=== PATIENT | male | born 1935 | race Caucasian/White ===

== ENCOUNTER 2018-03-02 15:29 | Inpatient (IN) | payer MEDICAID, OTHER ==
[~2018-03-02] VITALS: Ht 177.8 cm; Wt 134.5 kg
[~2018-03-02 15:29] MED LIST: ACET325T21 PO; ACET325T9 PO; ALBU2.5V5 IH; AMIO200T4 PO; ASPI-482 PO; ASPI-630 PO; ATOR40TA PO; ATOR40TA59 PO; BETA15CR5 TP; CARV12.52 PO; CARV25TA PO; CICL6.1H2 IH; CLOP75TA PO; CLOP75TA57 PO; CYAN10005 PO; DIGO250T PO; DILT240C32 PO; DILT360C PO; DOCU-109 PO; FOLI1TAB16 PO; FURO-68 PO; GLIP5TAB10 PO; GLYB5TAB3 PO; HYDR25SU4 RC; IBUP-1007 PO; INSU100V5 IJ; LEVO150T5 PO; LISI10TA2 PO; LISI2.5T PO; METF10003 PO; NITR0.4T SL; POTA10TA12 PO; TAMS0.4C97 PO; VENTOLIN HFA18 GM IH
--- NOTE | 2018-03-02 17:29 | PDOC1 ---
History and Physical Date of Admission Date of Admission DATE: 03/02/18 TIME: 17:23 Identification/Chief Complaint Chief Complaint Cannot urinate Source Source: Caregiver, Chart review, Patient History of Present Illness History of Present Illness 82-year-old male, incarcerated, comes in because of inability to urinate. [facility]irm[facility] at the facility tried to put a Flores catheter to no avail. He has bilateral enlarged scrotum, not tight though but seems to be fluid filled , no pain hence no signs of incarceratio, he claims this has been going on maybe for 2 weeks. He has history of BPH on Flomax, prostate is still there, admitted because of significant scrotal swelling, bilateral lower extremity swelling, some oozing of fluid in the left LE - he he has under wraps. Urology expertise to help place a Flores catheter. ER did attempt to insert one to no avail. Otherwise patient is nontoxic. The rest of the labs are still pending, labs has not been drawn, will order PSA, check ultrasound of the scrotum and bilateral lower extremity and admitted. Home meds I have reconciled, he has an indwelling pacemaker, some cardiac meds including Plavix etc. Which I have continued. AGreeable to be admitted Past Medical History Cardiovascular: AFIB, CAD, HTN, DE, Hyperlipidemia Pulmonary: COPD GI: No pertinent hx Heme/Onc: Anemia NOS Hepatobiliary: No pertinent hx Psych: No pertinent hx Musculoskeletal: low back pain Rheumatologic: No pertinent hx Infectious disease: No pertinent hx Renal/: Chronic renal insuff Endocrine: Diabetes Past Surgical History Past Surgical History: Pacemaker Family History Family History: Hypertension Social History Smoke: No ALCOHOL: none Drugs: None Current Medications Current Medications Current Medications Ondansetron HCl (Zofran) 4 mg PRN Q8HRS PRN IV NAUSEA/VOMITING; Start 03/02/18 at 17:30; Stop 03/03/18 at 17:29; Status UNV Morphine Sulfate (Morphine Sulfate) 4 mg PRN Q2HR PRN IV PAIN; Start 03/02/18 at 17:30; Stop 03/03/18 at 17:29; Status UNV Acetaminophen (Tylenol) 650 mg PRN Q4HRS PRN PO FEVER; Start 03/02/18 at 17:30 ; Stop 03/03/18 at 17:29; Status UNV Furosemide (Lasix) 60 mg 1X ONCE IVP ; Start 03/02/18 at 17:30; Stop 03/02/18 at 17:31; Status UNV Acetaminophen (Tylenol) 325 mg PRN Q4HRS PO ; Start 03/02/18 at 17:30; Status UNV Albuterol Sulfate (Ventolin Neb Soln) 2.5 mg TID PRN CONT NEB ; Start 03/02/18 at 17:30; Status UNV Amiodarone HCl (Cordarone) 200 mg BID PO ; Start 03/02/18 at 21:00; Status UNV Aspirin (Ecotrin) 81 mg DAILY PO ; Start 03/03/18 at 09:00; Status UNV Atorvastatin Calcium (Lipitor) 40 mg DAILY PO ; Start 03/03/18 at 09:00; Status UNV Carvedilol (Coreg) 12.5 mg BIDWMEALS PO ; Start 03/03/18 at 08:00; Status UNV Clopidogrel Bisulfate (Plavix) 75 mg DAILY PO ; Start 03/03/18 at 09:00; Status UNV Cyanocobalamin (Vitamin B-12) 1,000 mcg DAILY PO ; Start 03/03/18 at 09:00; Status UNV Diltiazem HCl (Cardizem 24hr Cd) 240 mg DAILYWLUN PO ; Start 03/03/18 at 12:00; Status UNV Docusate Sodium (Colace) 100 mg DAILY PO ; Start 03/03/18 at 09:00; Status UNV Folic Acid (Folic Acid) 1 mg DAILY PO ; Start 03/03/18 at 09:00; Status UNV Active Scripts Active Carvedilol 12.5 Mg Tablet 12.5 Mg PO BIDWMEALS Diltiazem 24HR Cd (Diltiazem Hcl) 240 Mg Cap.er.24h 240 Mg PO DAILYWLUN Amiodarone Hcl 200 Mg Tablet 200 Mg PO BID Vitamin B-12 (Cyanocobalamin (Vitamin B-12)) 1,000 Mcg Tablet 1,000 Mcg PO DAILY Reported Levothyroxine Sodium 150 Mcg Tablet 1 Tab PO DAILY Glipizide 5 Mg Tablet 2.5 Mg PO DAILY Tylenol (Acetaminophen) 325 Mg Tablet 1 Tab PO PRN Q4HRS Flomax (Tamsulosin Hcl) 0.4 Mg Cap.er.24h 1 Cap PO DAILY Potassium Chloride 10 Meq Capsule.er 10 Meq PO DAILY Lasix (Furosemide) 40 Mg Tablet 1 Tab PO DAILY Folic Acid 1 Mg Tablet 1 Tab PO DAILY Colace (Docusate Sodium) 100 Mg Capsule 1 Cap PO DAILY Clopidogrel (Clopidogrel Bisulfate) 75 Mg Tablet 1 Tab PO DAILY Betamethasone Dipropionate 15 Gm Cream..g. 1 Ayad TP BID Atorvastatin Calcium 40 Mg Tablet 1 Tab PO DAILY Aspir 81 (Aspirin) 81 Mg Tablet.dr 1 Tab PO DAILY Alvesco (Ciclesonide) 6.1 Gm Hfa.aer.ad 6.1 Gm IH Ventolin Hfa Inhaler (Albuterol Sulfate) 18 Gm Hfa.aer.ad 18 Gm IH Albuterol Sulfate Neb Soln (Albuterol Sulfate) 2.5 Mg/3 Ml Vial.neb 2.5 Mg IH TID PRN Metformin Hcl 1,000 Mg Tablet 1,000 Mg PO BID Allergies Allergies: Coded Allergies: No Known Drug Allergies (Unverified , 08/11/13) ROS Review of System As per history of present illness, the rest of ROS 14 point negative Physical Exam General: Alert, Oriented X3, Cooperative, No acute distress HEENT: Atraumatic, PERRLA, EOMI Lungs: Normal air movement, Other (dec Breath sounds especially bases, no wheezing, poor effort) Heart: no gallops, no murmurs Cardiovascular: S1, S2 Abdomen: Normal bowel sounds, Soft, No tenderness, No hepatosplenomegaly, No masses, Other (obese abdomen, seemingly fluid filled but not distended) Male Genitals Exam: other (Bilateral scrotal swelling, but not tight, visible vessels,) Rectal Exam: not examined Extremities: Other (signif plus 3 pitting edema with oozing, some Volodymyr wraps around) Skin: No rashes, No breakdown, No significant lesion Psych/Mental Status: Mental status NL, Mood NL Vitals Vitals Vital Signs Date Time Temp Pulse Resp B/P (MAP) Pulse Ox O2 Delivery O2 Flow Rate FiO2 03/02/18 16:17 97.8 69 16 165/95 (118) 95 Room Air 97.8 VTE Prophylaxis Ordered VTE Prophylaxis Devices: Yes VTE Pharmacological Prophylaxi: Yes Assessment/Plan Assessment/Plan Difficulty urinating, difficulty placing a Flores History BPH on Flomax Bilateral scrotal enlargement, possibly hydroceles Bilateral lower extremity edema, some oozing HTN, afib , indwelling pacer - all chronic stable Plan: Admit, urology consult Lasix IV 1 after Flores catheter is placed Home meds reconciled Will need Lasix 40 IV daily once Flores's catheter is placed to help with diuresis Check lites since IV lasix Basic labs include a PSA PT OT OT for lymphedema Keep legs elevated Check an ultrasound of the scrotum and prostate and lower extremity rule out DVT Keep bilateral scrotum elevated to help with the swelling seen at ER Dw mid level RK BRIDGES MD Mar 02, 2018 17:29
[2018-03-02] MEDS: ALBUTEROL SULFATE 2.5 MG/3 ML NEBU. NEB SCH ×2 (17:30→20:07)
[2018-03-02] MEDS ORDERED: ONDANSETRON PF 4 MG/2 ML VIAL. IV PRN (17:30)
[2018-03-02] MEDS ORDERED: MORPHINE SULFATE 4 MG/ML VIAL. IV PRN (17:30)
[2018-03-02] MEDS ORDERED: FUROSEMIDE 40 MG/4 ML VIAL. IVP ONE (17:30)
[2018-03-02] MEDS ORDERED: ACETAMINOPHEN 325 MG TABLET. PO PRN ×2 (17:30)
[2018-03-02] MEDS ORDERED: DEXTROSE 50% 25 GM / 50ML DISP.SYRIN. IV PRN (17:30)
--- NOTE | 2018-03-02 17:32 | PHYS DOC ---
Past Medical History Past Medical History: Heart Disease, Hypertension Past Surgical History: Pacemaker Additional Past Surgical Histo: Hernia Repair Alcohol Use: None Drug Use: None Adult General Chief Complaint Chief Complaint: URINE CATHETER PROBLEM HPI HPI Patient is a 82 year old female with a history of heart disease, hypertension, who presents today for Baker placement. Patient is at the local correctional facility. He is slightly a poor historian. He states they tried to place a Baker but the doctor at the facility had no success. He states he was sent to the ED to have the Baker placed. He states he can void by himself but not much, he states his scrotum and lower extremities are very swollen and he is on Lasix , he states they need him to have the Baker to help him void more. He states he does not know if he has any history of BPH. He states is on palliative care and does not want much done for him at this point apart from getting the Baker. Patient is guarded by [employer] guards. Review of Systems Review of Systems Constitutional: Denies fever or chills [] Eyes: Denies change in visual acuity, redness, or eye pain [] HENT: Denies nasal congestion or sore throat [] Respiratory: Denies cough or shortness of breath [] Cardiovascular: No additional information not addressed in HPI [] GI: Denies abdominal pain, nausea, vomiting, bloody stools or diarrhea [] : Reports Scrotal edema. Need for baker. Denies dysuria or hematuria [] Musculoskeletal: Denies back pain or joint pain [] Integument: Denies rash or skin lesions [] Neurologic: Denies headache, focal weakness or sensory changes [] All other systems were reviewed and found to be within normal limits, except as documented in this note. Allergies Allergies Allergies Coded Allergies Type Severity Reaction Last Updated Verified No Known Drug Allergies 08/11/13 No Physical Exam Physical Exam Constitutional: Obese patient. Well developed, well nourished, no acute distress , non-toxic appearance. [] HENT: Normocephalic, atraumatic, bilateral external ears normal, oropharynx moist, no oral exudates, nose normal. [] Eyes: PERRLA, EOMI, conjunctiva normal, no discharge. [] Neck: Normal range of motion, no tenderness, supple, no stridor. [] Cardiovascular: Left upper chest with a pacemaker, paced rhythm. Lungs & Thorax: Bilateral breath sounds clear to auscultation [] Abdomen: Bowel sounds normal, soft, no tenderness, no masses, no pulsatile masses. [] Male exam-moderate scrotal swelling noted on exam. Penis barely visualized. It is lost in the swelling. No scrotal erythema. Skin: Warm, dry, no erythema, no rash. [] Back: No tenderness, no CVA tenderness. [] Extremities: No tenderness, no cyanosis, no clubbing, ROM intact, +3 edema to the LLE. Neurologic: Alert and oriented X 3, normal motor function, normal sensory function, no focal deficits noted. [] Psychologic: Affect normal, judgement normal, mood normal. [] Current Patient Data Vital Signs Vital Signs Date Time Temp Pulse Resp B/P (MAP) Pulse Ox O2 Delivery O2 Flow Rate FiO2 03/02/18 16:17 97.8 69 16 165/95 (118) 95 Room Air 97.8 EKG EKG [] Radiology/Procedures Radiology/Procedures [] Course & Med Decision Making Course & Med Decision Making Pertinent Labs and Imaging studies reviewed. (See chart for details) This is a 82-year-old male patient presenting to the ED today for Baker placement, patient is on palliative care and is currently an inmate. He needs the Baker catheter because is on Lasix and has quite a bit of scrotal edema. He can void on himself but he states it is small amounts. We attempted to place the Baker in the ED with no success. Patient has moderate scrotal edema. We have called the urology multiple times with no response. Spoke with Dr. Gill who accepted patient for admission, still trying to get a hold of urology. Jermaineon Disclaimer Jermaineon Disclaimer This electronic medical record was generated, in whole or in part, using a voice recognition dictation system. Departure Departure Impression: Primary Impression: Baker catheter problem Disposition: ADMITTED INPATIENT Condition: STABLE Referrals: NON,STAFF (PCP) Problem Qualifiers Primary Impression: Baker catheter problem Encounter type: initial encounter Qualified Codes: T83.9XXA - Unspecified complication of genitourinary prosthetic device, implant and graft, initial encounter ADILENE NOLASCO APRN Mar 02, 2018 17:32
[2018-03-02 18:04] VITALS: BP 125/78
[2018-03-02 19:00] VITALS: BP 141/98
[2018-03-02 19:37] LABS: BASO # 0.1 x10^3/uL (0.0-0.2); BASO % 1 % (0-3); EOS # 0.1 x10^3/uL (0.0-0.7); EOS % 1 % (0-3); HEMOGLOBIN 13.5 g/dL (13.0-17.5); LYMPH # 0.6 x10^3/uL (1.0-4.8); LYMPH % 8 % (24-48); MEAN CORPUSCULAR HEMOGLOBIN 29 pg (25-35); MEAN CORPUSCULAR HGB CONC 32 g/dL (31-37); MEAN CORPUSCULAR VOLUME 91 fL (79-100); MONO # 0.9 x10^3/uL (0.0-1.1); MONO % 11 % (0-9); NEUT # 6.7 x10^3uL (1.8-7.7); NEUT % 79 % (31-73); PLATELET COUNT 313 x10^3/uL (140-400); RED BLOOD COUNT 4.64 x10^6/uL (4.30-5.70); WHITE BLOOD COUNT 8.5 x10^3/uL (4.0-11.0)
--- NOTE | 2018-03-02 19:46 | RAD ---
Ultrasound testes and coronal contents HISTORY: Swelling and bruising Sonographic examination of the scrotal contents and testes was performed and multiple static images were obtained. In addition color Doppler was applied as well as waveform spectral analysis. Ultrasound scrotal contents and testes: The testes have normal echotexture. The right testis measures 4.1 x 3.7 x 3.6 centers. Left testis measures 3.8 x 3.2 x 3.2 centers. There are small hydroceles bilaterally. There is diffuse scrotal wall swelling. Color Doppler examination with spectral analysis: There is normal testicular flow bilaterally. IMPRESSION: 1. Marked diffuse scrotal swelling. Cellulitis or Willian's gangrene must be excluded clinically. 2. Normal testes. Electronically signed by: Omar Ferguson III, MD (03/02/2018 7:43 PM) [facility]
--- NOTE | 2018-03-02 19:46 | RAD ---
Ultrasound testes and coronal contents HISTORY: Swelling and bruising Sonographic examination of the scrotal contents and testes was performed and multiple static images were obtained. In addition color Doppler was applied as well as waveform spectral analysis. Ultrasound scrotal contents and testes: The testes have normal echotexture. The right testis measures 4.1 x 3.7 x 3.6 centers. Left testis measures 3.8 x 3.2 x 3.2 centers. There are small hydroceles bilaterally. There is diffuse scrotal wall swelling. Color Doppler examination with spectral analysis: There is normal testicular flow bilaterally. IMPRESSION: 1. Marked diffuse scrotal swelling. Cellulitis or Willian's gangrene must be excluded clinically. 2. Normal testes. Electronically signed by: Omar Ferguson III, MD (03/02/2018 7:43 PM) [facility]
[2018-03-02 19:52] LABS: CREATININE 1.7 mg/dL (0.7-1.3); GFR 38.6; PLT ESTIMATE ADEQUATE (ADEQUATE); POTASSIUM 4.5 mmol/L (3.5-5.1)
[2018-03-02 19:53] LABS: ANISOCYTOSIS MOD; POLYCHROMASIA SLIGHT; TARGET CELLS OCC
[2018-03-02 20:07] LABS: FREE T4 0.71 ng/dL (0.76-1.46); THYROID STIM HORMONE (TSH) 89.322 uIU/mL (0.358-3.74)
[2018-03-02] MEDS: CYANOCOBALAMIN (VITAMIN B-12) 1,000 MCG TABLET. PO SCH (20:25)
[2018-03-02] MEDS: FOLIC ACID 1 MG TABLET. PO SCH (20:25)
[2018-03-02] MEDS: CARVEDILOL 12.5 MG TABLET. PO SCH (20:28)
[2018-03-02] MEDS: POTASSIUM CHLORIDE 10 MEQ TABLET.ER. PO SCH (20:29)
[2018-03-02] MEDS: ASPIRIN ENTERIC COATED 81 MG TABLET.DR. PO SCH (20:29)
[2018-03-02] MEDS: DOCUSATE SODIUM 100 MG CAPSULE. PO SCH (20:29)
[2018-03-02] MEDS: CLOPIDOGREL BISULFATE 75 MG TABLET PO SCH (20:30)
[2018-03-02] MEDS: TAMSULOSIN 0.4 MG CAP.ER.24H. PO SCH (20:30)
[2018-03-02] MEDS: LEVOTHYROXINE 150 MCG TABLET PO SCH (20:30)
[2018-03-02] MEDS: ATORVASTATIN CALCIUM 40 MG TABLET. PO SCH (20:33)
[2018-03-02] MEDS: AMIODARONE HCL 200 MG TABLET. PO SCH (20:34)
[2018-03-02] MEDS ORDERED: FLUOCINONIDE 0.05% TOPICAL CREAM 15 GM TUBE. TP PRN (21:00)
--- NOTE | 2018-03-02 21:21 | PDOC2 ---
UROLOGY CONSULT Date of Admission DATE: 03/02/18 TIME: 21:12 Reason for Consult: aur scrotal swelling hydrocele Chief Complaint scrotal swelling luts Source: Chart review, Patient 2 weeks of worsening LUTS and scrotal/bl LE swelling. No gh, no dysuria, no skin scrotal trauma. Unable to place cath in long-term nor ED. No prior evaluation for BPH/LUTS. PVR 400ml in ED. ROS ROS: RESPIRATORY: Shortness of breath denies. Cough denies. UROLOGY: Denies blood in urine. Denies difficulty urinating Past Surgical History: Pacemaker Current Medications Current Medications Ondansetron HCl (Zofran) 4 mg PRN Q8HRS PRN IV NAUSEA/VOMITING; Start 03/02/18 at 17:30; Stop 03/03/18 at 17:29 Morphine Sulfate (Morphine Sulfate) 4 mg PRN Q2HR PRN IV PAIN; Start 03/02/18 at 17:30; Stop 03/03/18 at 17:29 Acetaminophen (Tylenol) 650 mg PRN Q4HRS PRN PO FEVER; Start 03/02/18 at 17:30 ; Stop 03/03/18 at 17:29 Furosemide (Lasix) 60 mg 1X ONCE IVP ; Start 03/02/18 at 17:30; Stop 03/02/18 at 17:50; Status DC Acetaminophen (Tylenol) 325 mg PRN Q4HRS PRN PO MILD PAIN / TEMP; Start at 17:30 Albuterol Sulfate (Ventolin Neb Soln) 2.5 mg TID NEB Last administered on at 20:07; Start 03/02/18 at 17:30 Amiodarone HCl (Cordarone) 200 mg BID PO Last administered on 03/02/18at 20:34; Start 03/02/18 at 21:00 Aspirin (Ecotrin) 81 mg DAILY08 PO Last administered on 03/02/18at 20:29; Start 03/02/18 at 18:30 Atorvastatin Calcium (Lipitor) 40 mg QHS PO Last administered on 03/02/18at 20: 33; Start 03/02/18 at 21:00 Carvedilol (Coreg) 12.5 mg BIDWMEALS PO Last administered on 03/02/18at 20:28; Start 03/02/18 at 18:30 Clopidogrel Bisulfate (Plavix) 75 mg DAILY07 PO Last administered on 03/02/18at 20:30; Start 03/02/18 at 18:30 Cyanocobalamin (Vitamin B-12) 1,000 mcg DAILY PO Last administered on 20:25; Start 03/02/18 at 18:30 Diltiazem HCl (Cardizem 24hr Cd) 240 mg DAILYWLUN PO ; Start 03/03/18 at 12:00 Docusate Sodium (Colace) 100 mg DAILY PO Last administered on 03/02/18 20:29; Start 03/02/18 at 18:30 Folic Acid (Folic Acid) 1 mg DAILY PO Last administered on 03/02/18 20:25; Start 03/02/18 at 18:30 Glipizide (Glucotrol Er) 2.5 mg DAILY PO ; Start 03/03/18 at 09:00 Potassium Chloride (Klor-Con) 10 meq DAILY PO Last administered on 03/02/18 20 :29; Start 03/02/18 at 18:30 Tamsulosin HCl (Flomax) 0.4 mg DAILY PO Last administered on 03/02/18at 20:30; Start 03/02/18 at 18:30 Fluocinonide (Lidex) 1 ayad PRN BID PRN TP IRRITATED AREAS; Start 03/02/18 at 21 :00 Levothyroxine Sodium (Synthroid) 150 mcg DAILY07 PO Last administered on at 20:30; Start 03/02/18 at 18:30 Metformin HCl (Glucophage) 1,000 mg BIDWMEALS PO ; Start 03/03/18 at 08:00 Insulin Human Lispro (HumaLOG) 0-9 UNITS TIDWMEALS SQ ; Start 03/03/18 at 08:00 Dextrose (Dextrose 50%-Water Syringe) 12.5 gm PRN Q15MIN PRN IV SEE COMMENTS; Start 03/02/18 at 17:30 Furosemide (Lasix) 40 mg DAILY IVP ; Start 03/03/18 at 09:00 Active Scripts Active Carvedilol 12.5 Mg Tablet 12.5 Mg PO BIDWMEALS Diltiazem 24HR Cd (Diltiazem Hcl) 240 Mg Cap.er.24h 240 Mg PO DAILYWLUN Amiodarone Hcl 200 Mg Tablet 200 Mg PO BID Vitamin B-12 (Cyanocobalamin (Vitamin B-12)) 1,000 Mcg Tablet 1,000 Mcg PO DAILY Reported Levothyroxine Sodium 150 Mcg Tablet 1 Tab PO DAILY Glipizide 5 Mg Tablet 2.5 Mg PO DAILY Tylenol (Acetaminophen) 325 Mg Tablet 1 Tab PO PRN Q4HRS Flomax (Tamsulosin Hcl) 0.4 Mg Cap.er.24h 1 Cap PO DAILY Potassium Chloride 10 Meq Capsule.er 10 Meq PO DAILY Lasix (Furosemide) 40 Mg Tablet 1 Tab PO DAILY Folic Acid 1 Mg Tablet 1 Tab PO DAILY Colace (Docusate Sodium) 100 Mg Capsule 1 Cap PO DAILY Clopidogrel (Clopidogrel Bisulfate) 75 Mg Tablet 1 Tab PO DAILY Betamethasone Dipropionate 15 Gm Cream..g. 1 Ayad TP BID Atorvastatin Calcium 40 Mg Tablet 1 Tab PO DAILY Aspir 81 (Aspirin) 81 Mg Tablet.dr 1 Tab PO DAILY Alvesco (Ciclesonide) 6.1 Gm Hfa.aer.ad 6.1 Gm IH Ventolin Hfa Inhaler (Albuterol Sulfate) 18 Gm Hfa.aer.ad 18 Gm IH Albuterol Sulfate Neb Soln (Albuterol Sulfate) 2.5 Mg/3 Ml Vial.neb 2.5 Mg IH TID PRN Metformin Hcl 1,000 Mg Tablet 1,000 Mg PO BID Allergies: Coded Allergies: No Known Drug Allergies (Unverified , 08/11/13) Physical Examination PHYSICAL EXAMINATION: GENERAL: Gen. appearance: No acute distress. Mood/affect: Pleasant. HEENT: Head: Normocephalic, atraumatic. Airway Impairment: No. CHEST: Shape and expansion: Normal. Expansion: Normal. SKIN: General: Warm. Color: Good. GENITOURINARY:External genitalia - wnl. NEUROLOGICAL: Mental status: Alert and oriented 3. Language: Normal. VITALS Vital Signs Date Time Temp Pulse Resp B/P (MAP) Pulse Ox O2 Delivery O2 Flow Rate FiO2 03/02/18 20:34 109 141/98 03/02/18 20:08 93 Room Air 03/02/18 19:00 97.6 18 97.6 Labs Laboratory Tests Test 03/02/18 19:20 03/02/18 21:02 White Blood Count 8.5 x10^3/uL (4.0-11.0) Red Blood Count 4.64 x10^6/uL (4.30-5.70) Hemoglobin 13.5 g/dL (13.0-17.5) Hematocrit 42.0 % (39.0-53.0) Mean Corpuscular Volume 91 fL (79-100) Mean Corpuscular Hemoglobin 29 pg (25-35) Mean Corpuscular Hemoglobin Concent 32 g/dL (31-37) Red Cell Distribution Width 21.0 % (11.5-14.5) Platelet Count 313 x10^3/uL (140-400) Neutrophils (%) (Auto) 79 % (31-73) Lymphocytes (%) (Auto) 8 % (24-48) Monocytes (%) (Auto) 11 % (0-9) Eosinophils (%) (Auto) 1 % (0-3) Basophils (%) (Auto) 1 % (0-3) Neutrophils # (Auto) 6.7 x10^3uL (1.8-7.7) Lymphocytes # (Auto) 0.6 x10^3/uL (1.0-4.8) Monocytes # (Auto) 0.9 x10^3/uL (0.0-1.1) Eosinophils # (Auto) 0.1 x10^3/uL (0.0-0.7) Basophils # (Auto) 0.1 x10^3/uL (0.0-0.2) Platelet Estimate Adequate (ADEQUATE) Giant Platelets Occ Polychromasia Slight Anisocytosis Mod Target Cells Occ Sodium Level 137 mmol/L (136-145) Potassium Level 4.5 mmol/L (3.5-5.1) Chloride Level 104 mmol/L (98-107) Carbon Dioxide Level 25 mmol/L (21-32) Anion Gap 8 (6-14) Blood Urea Nitrogen 26 mg/dL (8-26) Creatinine 1.7 mg/dL (0.7-1.3) Estimated GFR (Cockcroft-Gault) 38.6 Glucose Level 114 mg/dL (70-99) Calcium Level 9.0 mg/dL (8.5-10.1) Thyroid Stimulating Hormone (TSH) 89.322 uIU/mL (0.358-3.74) Free Thyroxine 0.71 ng/dL (0.76-1.46) Free Triiodothyronine (T3) pg/mL 0.97 pg/mL (2.18-3.98) Glucose (Fingerstick) 121 mg/dL (70-99) Laboratory Tests Test 03/02/18 19:20 03/02/18 21:02 White Blood Count 8.5 x10^3/uL (4.0-11.0) Red Blood Count 4.64 x10^6/uL (4.30-5.70) Hemoglobin 13.5 g/dL (13.0-17.5) Hematocrit 42.0 % (39.0-53.0) Mean Corpuscular Volume 91 fL (79-100) Mean Corpuscular Hemoglobin 29 pg (25-35) Mean Corpuscular Hemoglobin Concent 32 g/dL (31-37) Red Cell Distribution Width 21.0 % (11.5-14.5) Platelet Count 313 x10^3/uL (140-400) Neutrophils (%) (Auto) 79 % (31-73) Lymphocytes (%) (Auto) 8 % (24-48) Monocytes (%) (Auto) 11 % (0-9) Eosinophils (%) (Auto) 1 % (0-3) Basophils (%) (Auto) 1 % (0-3) Neutrophils # (Auto) 6.7 x10^3uL (1.8-7.7) Lymphocytes # (Auto) 0.6 x10^3/uL (1.0-4.8) Monocytes # (Auto) 0.9 x10^3/uL (0.0-1.1) Eosinophils # (Auto) 0.1 x10^3/uL (0.0-0.7) Basophils # (Auto) 0.1 x10^3/uL (0.0-0.2) Platelet Estimate Adequate (ADEQUATE) Giant Platelets Occ Polychromasia Slight Anisocytosis Mod Target Cells Occ Sodium Level 137 mmol/L (136-145) Potassium Level 4.5 mmol/L (3.5-5.1) Chloride Level 104 mmol/L (98-107) Carbon Dioxide Level 25 mmol/L (21-32) Anion Gap 8 (6-14) Blood Urea Nitrogen 26 mg/dL (8-26) Creatinine 1.7 mg/dL (0.7-1.3) Estimated GFR (Cockcroft-Gault) 38.6 Glucose Level 114 mg/dL (70-99) Calcium Level 9.0 mg/dL (8.5-10.1) Thyroid Stimulating Hormone (TSH) 89.322 uIU/mL (0.358-3.74) Free Thyroxine 0.71 ng/dL (0.76-1.46) Free Triiodothyronine (T3) pg/mL 0.97 pg/mL (2.18-3.98) Glucose (Fingerstick) 121 mg/dL (70-99) Images scrotal us with skin edema. bl small hydroceles Assessment/Plan Scrotal edema 2/2 anasarca Recommend rest, ice, scrotal elevation and compression. INvestigate for sources of volume overload. AUR, cath placed at bedside. 16fr with 10ml in ballon. Leave in place till above resolves. Past Medical History: Heart Disease, Hypertension KIMBERLEY GOLDSMITH MD Mar 02, 2018 21:21
[2018-03-02 23:00] VITALS: BP 105/68
[2018-03-03] VITALS (10 sets, daily range): BP systolic 72–128; BP diastolic 39–86
[2018-03-03 05:01] LABS: ALBUMIN 2.6 g/dL (3.4-5.0); ALBUMIN/GLOBULIN RATIO 0.6 (1.0-1.7); CALCIUM 8.5 mg/dL (8.5-10.1); CREATININE 1.7 mg/dL (0.7-1.3); GFR 38.6; POTASSIUM 4.4 mmol/L (3.5-5.1); TOTAL BILIRUBIN 1.6 mg/dL (0.2-1.0); TOTAL PROTEIN 7.1 g/dL (6.4-8.2)
[2018-03-03] MEDS: LEVOTHYROXINE 150 MCG TABLET PO SCH (06:32)
[2018-03-03] MEDS: CLOPIDOGREL BISULFATE 75 MG TABLET PO SCH (06:32)
[2018-03-03] MEDS: ALBUTEROL SULFATE 2.5 MG/3 ML NEBU. NEB SCH ×3 (07:26→19:23)
[2018-03-03] MEDS: INSULIN LISPRO 300 UNITS/3 ML INSULN.PEN. SQ SCH ×3 (08:00→17:00)
[2018-03-03] MEDS: FUROSEMIDE 40 MG/4 ML VIAL. IVP SCH (08:59)
[2018-03-03] MEDS: FOLIC ACID 1 MG TABLET. PO SCH (09:00)
[2018-03-03] MEDS: AMIODARONE HCL 200 MG TABLET. PO SCH ×2 (09:00→21:46)
[2018-03-03] MEDS: TAMSULOSIN 0.4 MG CAP.ER.24H. PO SCH (09:00)
[2018-03-03] MEDS: glipiZIDE ER 2.5 MG TAB.ER.24 PO SCH (09:01)
[2018-03-03] MEDS: CYANOCOBALAMIN (VITAMIN B-12) 1,000 MCG TABLET. PO SCH (09:01)
[2018-03-03] MEDS: DOCUSATE SODIUM 100 MG CAPSULE. PO SCH (09:01)
[2018-03-03] MEDS: POTASSIUM CHLORIDE 10 MEQ TABLET.ER. PO SCH (09:02)
[2018-03-03] MEDS: CARVEDILOL 12.5 MG TABLET. PO SCH ×2 (09:02→17:00)
[2018-03-03] MEDS: ASPIRIN ENTERIC COATED 81 MG TABLET.DR. PO SCH (09:03)
--- NOTE | 2018-03-03 11:30 | PDOC ---
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 - he does have some redness, swelling and pain around the area Bilateral lower extremity swelling, no DVT on US Plan: Continue IV Lasix Check an echocardiogram OT for lymphedema I did consult Infectious diseases consult because of concerns of Parag's gangrene Vitals Vitals Vital Signs Date Time Temp Pulse Resp B/P (MAP) Pulse Ox O2 Delivery O2 Flow Rate FiO2 03/03/18 09:02 98 128/86 03/03/18 07:28 99 Nasal Cannula 2.0 03/03/18 07:00 97.6 18 97.6 Physical Exam General: Alert, Oriented X3, Cooperative, No acute distress Lungs: Clear Abdomen: Normal bowel sounds, Soft, No tenderness, No hepatosplenomegaly, No masses, Other (obese abdomen, seemingly fluid filled but not distended) Extremities: Other (signif plus 3 pitting edema with oozing, some Volodymyr wraps around) Skin: No rashes, No breakdown, No significant lesion Labs LABS Laboratory Tests Test 03/02/18 19:20 03/02/18 21:02 03/02/18 23:54 03/03/18 04:15 White Blood Count 8.5 x10^3/uL (4.0-11.0) Red Blood Count 4.64 x10^6/uL (4.30-5.70) Hemoglobin 13.5 g/dL (13.0-17.5) Hematocrit 42.0 % (39.0-53.0) Mean Corpuscular Volume 91 fL (79-100) Mean Corpuscular Hemoglobin 29 pg (25-35) Mean Corpuscular Hemoglobin Concent 32 g/dL (31-37) Red Cell Distribution Width 21.0 % (11.5-14.5) Platelet Count 313 x10^3/uL (140-400) Neutrophils (%) (Auto) 79 % (31-73) Lymphocytes (%) (Auto) 8 % (24-48) Monocytes (%) (Auto) 11 % (0-9) Eosinophils (%) (Auto) 1 % (0-3) Basophils (%) (Auto) 1 % (0-3) Neutrophils # (Auto) 6.7 x10^3uL (1.8-7.7) Lymphocytes # (Auto) 0.6 x10^3/uL (1.0-4.8) Monocytes # (Auto) 0.9 x10^3/uL (0.0-1.1) Eosinophils # (Auto) 0.1 x10^3/uL (0.0-0.7) Basophils # (Auto) 0.1 x10^3/uL (0.0-0.2) Platelet Estimate Adequate (ADEQUATE) Giant Platelets Occ Polychromasia Slight Anisocytosis Mod Target Cells Occ Sodium Level 137 mmol/L (136-145) 137 mmol/L (136-145) Potassium Level 4.5 mmol/L (3.5-5.1) 4.4 mmol/L (3.5-5.1) Chloride Level 104 mmol/L (98-107) 105 mmol/L (98-107) Carbon Dioxide Level 25 mmol/L (21-32) 28 mmol/L (21-32) Anion Gap 8 (6-14) 4 (6-14) Blood Urea Nitrogen 26 mg/dL (8-26) 29 mg/dL (8-26) Creatinine 1.7 mg/dL (0.7-1.3) 1.7 mg/dL (0.7-1.3) Estimated GFR (Cockcroft-Gault) 38.6 38.6 Glucose Level 114 mg/dL (70-99) 130 mg/dL (70-99) Calcium Level 9.0 mg/dL (8.5-10.1) 8.5 mg/dL (8.5-10.1) Thyroid Stimulating Hormone (TSH) 89.322 uIU/mL (0.358-3.74) Free Thyroxine 0.71 ng/dL (0.76-1.46) Free Triiodothyronine (T3) pg/mL 0.97 pg/mL (2.18-3.98) Glucose (Fingerstick) 121 mg/dL (70-99) 139 mg/dL (70-99) BUN/Creatinine Ratio 17 (6-20) Total Bilirubin 1.6 mg/dL (0.2-1.0) Aspartate Amino Transf (AST/SGOT) 18 U/L (15-37) Alanine Aminotransferase (ALT/SGPT) 12 U/L (16-63) Alkaline Phosphatase 135 U/L (46-116) Total Protein 7.1 g/dL (6.4-8.2) Albumin 2.6 g/dL (3.4-5.0) Albumin/Globulin Ratio 0.6 (1.0-1.7) Prostate Specific Antigen 0.64 ng/mL (0.00-4.00) Test 03/03/18 08:04 Glucose (Fingerstick) 119 mg/dL (70-99) Review of Systems Review of Systems A 14 point ROS was completed with the following noted as positive: Other systems reviewed and negative. \CONSTITUTIONAL: No fever or chills EYES: No recent changes SKIN: No rash or itching CARDIOVASCULAR: No chest pain, syncope, palpitations, or edema RESPIRATORY: No SOB or cough GASTROINTESTINAL: No nausea, vomiting or abdominal pain NEUROLOGICAL: No headaches or weakness ENDOCRINE: No cold or heat intolerance GENITOURINARY: No urgency or frequency of urination MUSCULOSKELETAL: No back pain or joint pain LYMPHATICS: No enlarged lymph nodes PSYCHIATRIC: No anxiety or depression Comment Review of Relevant I have reviewed the following items kelsey (where applicable) has been applied. Labs Laboratory Tests Test 03/02/18 19:20 03/02/18 21:02 03/02/18 23:54 03/03/18 04:15 White Blood Count 8.5 x10^3/uL (4.0-11.0) Red Blood Count 4.64 x10^6/uL (4.30-5.70) Hemoglobin 13.5 g/dL (13.0-17.5) Hematocrit 42.0 % (39.0-53.0) Mean Corpuscular Volume 91 fL (79-100) Mean Corpuscular Hemoglobin 29 pg (25-35) Mean Corpuscular Hemoglobin Concent 32 g/dL (31-37) Red Cell Distribution Width 21.0 % (11.5-14.5) Platelet Count 313 x10^3/uL (140-400) Neutrophils (%) (Auto) 79 % (31-73) Lymphocytes (%) (Auto) 8 % (24-48) Monocytes (%) (Auto) 11 % (0-9) Eosinophils (%) (Auto) 1 % (0-3) Basophils (%) (Auto) 1 % (0-3) Neutrophils # (Auto) 6.7 x10^3uL (1.8-7.7) Lymphocytes # (Auto) 0.6 x10^3/uL (1.0-4.8) Monocytes # (Auto) 0.9 x10^3/uL (0.0-1.1) Eosinophils # (Auto) 0.1 x10^3/uL (0.0-0.7) Basophils # (Auto) 0.1 x10^3/uL (0.0-0.2) Platelet Estimate Adequate (ADEQUATE) Giant Platelets Occ Polychromasia Slight Anisocytosis Mod Target Cells Occ Sodium Level 137 mmol/L (136-145) 137 mmol/L (136-145) Potassium Level 4.5 mmol/L (3.5-5.1) 4.4 mmol/L (3.5-5.1) Chloride Level 104 mmol/L (98-107) 105 mmol/L (98-107) Carbon Dioxide Level 25 mmol/L (21-32) 28 mmol/L (21-32) Anion Gap 8 (6-14) 4 (6-14) Blood Urea Nitrogen 26 mg/dL (8-26) 29 mg/dL (8-26) Creatinine 1.7 mg/dL (0.7-1.3) 1.7 mg/dL (0.7-1.3) Estimated GFR (Cockcroft-Gault) 38.6 38.6 Glucose Level 114 mg/dL (70-99) 130 mg/dL (70-99) Calcium Level 9.0 mg/dL (8.5-10.1) 8.5 mg/dL (8.5-10.1) Thyroid Stimulating Hormone (TSH) 89.322 uIU/mL (0.358-3.74) Free Thyroxine 0.71 ng/dL (0.76-1.46) Free Triiodothyronine (T3) pg/mL 0.97 pg/mL (2.18-3.98) Glucose (Fingerstick) 121 mg/dL (70-99) 139 mg/dL (70-99) BUN/Creatinine Ratio 17 (6-20) Total Bilirubin 1.6 mg/dL (0.2-1.0) Aspartate Amino Transf (AST/SGOT) 18 U/L (15-37) Alanine Aminotransferase (ALT/SGPT) 12 U/L (16-63) Alkaline Phosphatase 135 U/L (46-116) Total Protein 7.1 g/dL (6.4-8.2) Albumin 2.6 g/dL (3.4-5.0) Albumin/Globulin Ratio 0.6 (1.0-1.7) Prostate Specific Antigen 0.64 ng/mL (0.00-4.00) Test 03/03/18 08:04 Glucose (Fingerstick) 119 mg/dL (70-99) Laboratory Tests Test 03/02/18 19:20 03/02/18 21:02 03/02/18 23:54 03/03/18 04:15 White Blood Count 8.5 x10^3/uL (4.0-11.0) Red Blood Count 4.64 x10^6/uL (4.30-5.70) Hemoglobin 13.5 g/dL (13.0-17.5) Hematocrit 42.0 % (39.0-53.0) Mean Corpuscular Volume 91 fL (79-100) Mean Corpuscular Hemoglobin 29 pg (25-35) Mean Corpuscular Hemoglobin Concent 32 g/dL (31-37) Red Cell Distribution Width 21.0 % (11.5-14.5) Platelet Count 313 x10^3/uL (140-400) Neutrophils (%) (Auto) 79 % (31-73) Lymphocytes (%) (Auto) 8 % (24-48) Monocytes (%) (Auto) 11 % (0-9) Eosinophils (%) (Auto) 1 % (0-3) Basophils (%) (Auto) 1 % (0-3) Neutrophils # (Auto) 6.7 x10^3uL (1.8-7.7) Lymphocytes # (Auto) 0.6 x10^3/uL (1.0-4.8) Monocytes # (Auto) 0.9 x10^3/uL (0.0-1.1) Eosinophils # (Auto) 0.1 x10^3/uL (0.0-0.7) Basophils # (Auto) 0.1 x10^3/uL (0.0-0.2) Platelet Estimate Adequate (ADEQUATE) Giant Platelets Occ Polychromasia Slight Anisocytosis Mod Target Cells Occ Sodium Level 137 mmol/L (136-145) 137 mmol/L (136-145) Potassium Level 4.5 mmol/L (3.5-5.1) 4.4 mmol/L (3.5-5.1) Chloride Level 104 mmol/L (98-107) 105 mmol/L (98-107) Carbon Dioxide Level 25 mmol/L (21-32) 28 mmol/L (21-32) Anion Gap 8 (6-14) 4 (6-14) Blood Urea Nitrogen 26 mg/dL (8-26) 29 mg/dL (8-26) Creatinine 1.7 mg/dL (0.7-1.3) 1.7 mg/dL (0.7-1.3) Estimated GFR (Cockcroft-Gault) 38.6 38.6 Glucose Level 114 mg/dL (70-99) 130 mg/dL (70-99) Calcium Level 9.0 mg/dL (8.5-10.1) 8.5 mg/dL (8.5-10.1) Thyroid Stimulating Hormone (TSH) 89.322 uIU/mL (0.358-3.74) Free Thyroxine 0.71 ng/dL (0.76-1.46) Free Triiodothyronine (T3) pg/mL 0.97 pg/mL (2.18-3.98) Glucose (Fingerstick) 121 mg/dL (70-99) 139 mg/dL (70-99) BUN/Creatinine Ratio 17 (6-20) Total Bilirubin 1.6 mg/dL (0.2-1.0) Aspartate Amino Transf (AST/SGOT) 18 U/L (15-37) Alanine Aminotransferase (ALT/SGPT) 12 U/L (16-63) Alkaline Phosphatase 135 U/L (46-116) Total Protein 7.1 g/dL (6.4-8.2) Albumin 2.6 g/dL (3.4-5.0) Albumin/Globulin Ratio 0.6 (1.0-1.7) Prostate Specific Antigen 0.64 ng/mL (0.00-4.00) Test 03/03/18 08:04 Glucose (Fingerstick) 119 mg/dL (70-99) Medications Current Medications Ondansetron HCl (Zofran) 4 mg PRN Q8HRS PRN IV NAUSEA/VOMITING; Start 03/02/18 at 17:30; Stop 03/03/18 at 17:29 Morphine Sulfate (Morphine Sulfate) 4 mg PRN Q2HR PRN IV PAIN; Start 03/02/18 at 17:30; Stop 03/03/18 at 17:29 Acetaminophen (Tylenol) 650 mg PRN Q4HRS PRN PO FEVER; Start 03/02/18 at 17:30 ; Stop 03/03/18 at 17:29 Furosemide (Lasix) 60 mg 1X ONCE IVP Last administered on 03/02/18at 23:02; Start 03/02/18 at 17:30; Stop 03/02/18 at 17:50; Status DC Acetaminophen (Tylenol) 325 mg PRN Q4HRS PRN PO MILD PAIN / TEMP; Start at 17:30 Albuterol Sulfate (Ventolin Neb Soln) 2.5 mg TID NEB Last administered on 07:26; Start 03/02/18 at 17:30 Amiodarone HCl (Cordarone) 200 mg BID PO Last administered on 03/03/18 09:00; Start 03/02/18 at 21:00 Aspirin (Ecotrin) 81 mg DAILY08 PO Last administered on 03/03/18 09:03; Start 03/02/18 at 18:30 Atorvastatin Calcium (Lipitor) 40 mg QHS PO Last administered on 03/02/18at 20: 33; Start 03/02/18 at 21:00 Carvedilol (Coreg) 12.5 mg BIDWMEALS PO Last administered on 03/03/18 09:02; Start 03/02/18 at 18:30 Clopidogrel Bisulfate (Plavix) 75 mg DAILY07 PO Last administered on 03/03/18 06:32; Start 03/02/18 at 18:30 Cyanocobalamin (Vitamin B-12) 1,000 mcg DAILY PO Last administered on 09:01; Start 03/02/18 at 18:30 Diltiazem HCl (Cardizem 24hr Cd) 240 mg DAILYWLUN PO ; Start 03/03/18 at 12:00 Docusate Sodium (Colace) 100 mg DAILY PO Last administered on 03/03/18 09:01; Start 03/02/18 at 18:30 Folic Acid (Folic Acid) 1 mg DAILY PO Last administered on 03/03/18 09:00; Start 03/02/18 at 18:30 Glipizide (Glucotrol Er) 2.5 mg DAILY PO Last administered on 03/03/18 09:01; Start 03/03/18 at 09:00 Potassium Chloride (Klor-Con) 10 meq DAILY PO Last administered on 03/03/18 09 :02; Start 03/02/18 at 18:30 Tamsulosin HCl (Flomax) 0.4 mg DAILY PO Last administered on 03/03/18at 09:00; Start 03/02/18 at 18:30 Fluocinonide (Lidex) 1 tanvi PRN BID PRN TP IRRITATED AREAS; Start 03/02/18 at 21 :00 Levothyroxine Sodium (Synthroid) 150 mcg DAILY07 PO Last administered on at 06:32; Start 03/02/18 at 18:30 Metformin HCl (Glucophage) 1,000 mg BIDWMEALS PO Last administered on at 09:03; Start 03/03/18 at 08:00 Insulin Human Lispro (HumaLOG) 0-9 UNITS TIDWMEALS SQ ; Start 03/03/18 at 08:00 Dextrose (Dextrose 50%-Water Syringe) 12.5 gm PRN Q15MIN PRN IV SEE COMMENTS; Start 03/02/18 at 17:30 Furosemide (Lasix) 40 mg DAILY IVP Last administered on 03/03/18at 08:59; Start 03/03/18 at 09:00 Active Scripts Active Carvedilol 12.5 Mg Tablet 12.5 Mg PO BIDWMEALS Diltiazem 24HR Cd (Diltiazem Hcl) 240 Mg Cap.er.24h 240 Mg PO DAILYWLUN Amiodarone Hcl 200 Mg Tablet 200 Mg PO BID Vitamin B-12 (Cyanocobalamin (Vitamin B-12)) 1,000 Mcg Tablet 1,000 Mcg PO DAILY Reported Levothyroxine Sodium 150 Mcg Tablet 1 Tab PO DAILY Glipizide 5 Mg Tablet 2.5 Mg PO DAILY Tylenol (Acetaminophen) 325 Mg Tablet 1 Tab PO PRN Q4HRS Flomax (Tamsulosin Hcl) 0.4 Mg Cap.er.24h 1 Cap PO DAILY Potassium Chloride 10 Meq Capsule.er 10 Meq PO DAILY Lasix (Furosemide) 40 Mg Tablet 1 Tab PO DAILY Folic Acid 1 Mg Tablet 1 Tab PO DAILY Colace (Docusate Sodium) 100 Mg Capsule 1 Cap PO DAILY Clopidogrel (Clopidogrel Bisulfate) 75 Mg Tablet 1 Tab PO DAILY Betamethasone Dipropionate 15 Gm Cream..g. 1 Tanvi TP BID Atorvastatin Calcium 40 Mg Tablet 1 Tab PO DAILY Aspir 81 (Aspirin) 81 Mg Tablet.dr 1 Tab PO DAILY [place]vesco (Ciclesonide) 6.1 Gm Hfa.aer.ad 6.1 Gm IH Ventolin Hfa Inhaler (Albuterol Sulfate) 18 Gm Hfa.aer.ad 18 Gm IH Albuterol Sulfate Neb Soln (Albuterol Sulfate) 2.5 Mg/3 Ml Vial.neb 2.5 Mg IH TID PRN Metformin Hcl 1,000 Mg Tablet 1,000 Mg PO BID Vitals/I & O Vital Sign - Last 24 Hours 03/02/18 03/02/18 03/02/18 03/02/18 16:17 18:00 18:04 19:00 Temp 97.8 97.9 97.6 97.8 97.9 97.6 Pulse 69 104 104 Resp 18 B/P (MAP) 165/95 (118) 125/78 (94) 141/98 (112) Pulse Ox 95 95 92 O2 Delivery Room Air Room Air Room Air Room Air 03/02/18 03/02/18 03/02/18 03/02/18 20:08 20:10 20:28 20:34 Pulse 109 109 B/P (MAP) 141/98 141/98 Pulse Ox 93 O2 Delivery Room Air Room Air 03/02/18 03/03/18 03/03/18 03/03/18 23:00 03:00 07:00 07:28 Temp 97.8 97.6 97.6 97.8 97.6 97.6 Pulse 98 98 99 Resp 18 B/P (MAP) 105/68 (80) 128/86 (100) 116/74 (88) Pulse Ox 94 99 99 99 O2 Delivery Room Air Room Air Room Air Nasal Cannula O2 Flow Rate 2.0 03/03/18 03/03/18 09:00 09:02 Pulse 98 98 B/P (MAP) 128/86 128/86 Intake and Output 03/02/18 03/02/18 03/03/18 15:00 23:00 07:00 Intake Total 440 ml 540 ml Output Total 850 ml 3000 ml Balance -410 ml -2460 ml RK BRIDGES MD Mar 03, 2018 11:30
--- NOTE | 2018-03-03 11:44 | PDOC ---
Infectious Disease Note Vital Sign Vital Signs Vital Signs Date Time Temp Pulse Resp B/P (MAP) Pulse Ox O2 Delivery O2 Flow Rate FiO2 03/03/18 09:02 98 128/86 03/03/18 07:28 99 Nasal Cannula 2.0 03/03/18 07:00 97.6 18 97.6 Labs Lab Laboratory Tests Test 03/02/18 19:20 03/02/18 21:02 03/02/18 23:54 03/03/18 04:15 White Blood Count 8.5 x10^3/uL (4.0-11.0) Red Blood Count 4.64 x10^6/uL (4.30-5.70) Hemoglobin 13.5 g/dL (13.0-17.5) Hematocrit 42.0 % (39.0-53.0) Mean Corpuscular Volume 91 fL (79-100) Mean Corpuscular Hemoglobin 29 pg (25-35) Mean Corpuscular Hemoglobin Concent 32 g/dL (31-37) Red Cell Distribution Width 21.0 % (11.5-14.5) Platelet Count 313 x10^3/uL (140-400) Neutrophils (%) (Auto) 79 % (31-73) Lymphocytes (%) (Auto) 8 % (24-48) Monocytes (%) (Auto) 11 % (0-9) Eosinophils (%) (Auto) 1 % (0-3) Basophils (%) (Auto) 1 % (0-3) Neutrophils # (Auto) 6.7 x10^3uL (1.8-7.7) Lymphocytes # (Auto) 0.6 x10^3/uL (1.0-4.8) Monocytes # (Auto) 0.9 x10^3/uL (0.0-1.1) Eosinophils # (Auto) 0.1 x10^3/uL (0.0-0.7) Basophils # (Auto) 0.1 x10^3/uL (0.0-0.2) Platelet Estimate Adequate (ADEQUATE) Giant Platelets Occ Polychromasia Slight Anisocytosis Mod Target Cells Occ Sodium Level 137 mmol/L (136-145) 137 mmol/L (136-145) Potassium Level 4.5 mmol/L (3.5-5.1) 4.4 mmol/L (3.5-5.1) Chloride Level 104 mmol/L (98-107) 105 mmol/L (98-107) Carbon Dioxide Level 25 mmol/L (21-32) 28 mmol/L (21-32) Anion Gap 8 (6-14) 4 (6-14) Blood Urea Nitrogen 26 mg/dL (8-26) 29 mg/dL (8-26) Creatinine 1.7 mg/dL (0.7-1.3) 1.7 mg/dL (0.7-1.3) Estimated GFR (Cockcroft-Gault) 38.6 38.6 Glucose Level 114 mg/dL (70-99) 130 mg/dL (70-99) Calcium Level 9.0 mg/dL (8.5-10.1) 8.5 mg/dL (8.5-10.1) Thyroid Stimulating Hormone (TSH) 89.322 uIU/mL (0.358-3.74) Free Thyroxine 0.71 ng/dL (0.76-1.46) Free Triiodothyronine (T3) pg/mL 0.97 pg/mL (2.18-3.98) Glucose (Fingerstick) 121 mg/dL (70-99) 139 mg/dL (70-99) BUN/Creatinine Ratio 17 (6-20) Total Bilirubin 1.6 mg/dL (0.2-1.0) Aspartate Amino Transf (AST/SGOT) 18 U/L (15-37) Alanine Aminotransferase (ALT/SGPT) 12 U/L (16-63) Alkaline Phosphatase 135 U/L (46-116) Total Protein 7.1 g/dL (6.4-8.2) Albumin 2.6 g/dL (3.4-5.0) Albumin/Globulin Ratio 0.6 (1.0-1.7) Prostate Specific Antigen 0.64 ng/mL (0.00-4.00) Test 03/03/18 08:04 03/03/18 11:28 Glucose (Fingerstick) 119 mg/dL (70-99) 155 mg/dL (70-99) Objective Assessment Scrotal edema , do not believe has [place] gangrene Lower ext chronic stasis dermatitis , secondary acute cellulitis appears less likely BPH CHF Pacemaker HTN Plan Plan of Care check u/a Unasyn short coarse, then oral leg elevation scrotal support and elevation ZARI HAGER MD Mar 03, 2018 11:44
--- NOTE | 2018-03-03 12:03 | PDOC ---
SUBJECTIVE Subjective Patient doing ok today, he thinks that his scrotum is a "little smaller." Flores catheter is not bothering him, appears to be draining well. OBJECTIVE Objective Physical Exam: General appearance: Alert and Oriented Head: Normocephalic, without obvious abnormality Eyes: conjunctivae/corneas clear. PERRL, EOM's intact. Fundi benign Lungs: regular respirations, non labored breathing Pelvic: enlarged scrotum with anasarca. This is elevated with rolled towels, ice pack is in place. Flores catheter in place draining clear yellow urine. Phallus is buried. Jock strap is in place providing light compression. Vital Signs Vital Signs Date Time Temp Pulse Resp B/P (MAP) Pulse Ox O2 Delivery O2 Flow Rate FiO2 03/03/18 09:02 98 128/86 03/03/18 09:00 98 128/86 03/03/18 07:28 99 Nasal Cannula 2.0 03/03/18 07:00 97.6 99 18 116/74 (88) 99 Room Air 97.6 03/03/18 03:00 97.6 98 18 128/86 (100) 99 Room Air 97.6 03/02/18 23:00 97.8 98 18 105/68 (80) 94 Room Air 97.8 03/02/18 20:34 109 141/98 03/02/18 20:28 109 141/98 03/02/18 20:10 Room Air 03/02/18 20:08 93 Room Air 03/02/18 19:00 97.6 104 18 141/98 (112) 92 Room Air 97.6 03/02/18 18:04 97.9 104 18 125/78 (94) 95 Room Air 97.9 03/02/18 18:00 Room Air 03/02/18 16:17 97.8 69 16 165/95 (118) 95 Room Air 97.8 I & O Intake and Output 03/03/18 07:00 Intake Total 980 ml Output Total 3850 ml Balance -2870 ml Intake Oral 980 ml Output Urine Total 3850 ml PHYSICAL EXAM Physical Exam General appearance: Alert and Oriented Head: Normocephalic, without obvious abnormality Eyes: conjunctivae/corneas clear. PERRL, EOM's intact. Fundi benign Lungs: regular respirations, non labored breathing Pelvic: enlarged scrotum with anasarca. This is elevated with rolled towels, ice pack is in place. Flores catheter in place draining clear yellow urine. Phallus is buried. Jock strap is in place providing light compression. ASSESSMENT/PLAN Assessment/Plan Scrotal edema is from anasarca, pt does note improvement with elevation and jock strap. Continue rest, ice, scrotal elevation and compression with towels/jockstrap. Investigate for sources of volume overload, will defer to medical team. Dr. Reyes placed catheter at bedside last night; this should be left in place until scrotal swelling resolves. COMMENT Lab Laboratory Tests Test 03/02/18 19:20 03/02/18 21:02 03/02/18 23:54 03/03/18 04:15 White Blood Count 8.5 x10^3/uL (4.0-11.0) Red Blood Count 4.64 x10^6/uL (4.30-5.70) Hemoglobin 13.5 g/dL (13.0-17.5) Hematocrit 42.0 % (39.0-53.0) Mean Corpuscular Volume 91 fL (79-100) Mean Corpuscular Hemoglobin 29 pg (25-35) Mean Corpuscular Hemoglobin Concent 32 g/dL (31-37) Red Cell Distribution Width 21.0 % (11.5-14.5) Platelet Count 313 x10^3/uL (140-400) Neutrophils (%) (Auto) 79 % (31-73) Lymphocytes (%) (Auto) 8 % (24-48) Monocytes (%) (Auto) 11 % (0-9) Eosinophils (%) (Auto) 1 % (0-3) Basophils (%) (Auto) 1 % (0-3) Neutrophils # (Auto) 6.7 x10^3uL (1.8-7.7) Lymphocytes # (Auto) 0.6 x10^3/uL (1.0-4.8) Monocytes # (Auto) 0.9 x10^3/uL (0.0-1.1) Eosinophils # (Auto) 0.1 x10^3/uL (0.0-0.7) Basophils # (Auto) 0.1 x10^3/uL (0.0-0.2) Platelet Estimate Adequate (ADEQUATE) Giant Platelets Occ Polychromasia Slight Anisocytosis Mod Target Cells Occ Sodium Level 137 mmol/L (136-145) 137 mmol/L (136-145) Potassium Level 4.5 mmol/L (3.5-5.1) 4.4 mmol/L (3.5-5.1) Chloride Level 104 mmol/L (98-107) 105 mmol/L (98-107) Carbon Dioxide Level 25 mmol/L (21-32) 28 mmol/L (21-32) Anion Gap 8 (6-14) 4 (6-14) Blood Urea Nitrogen 26 mg/dL (8-26) 29 mg/dL (8-26) Creatinine 1.7 mg/dL (0.7-1.3) 1.7 mg/dL (0.7-1.3) Estimated GFR (Cockcroft-Gault) 38.6 38.6 Glucose Level 114 mg/dL (70-99) 130 mg/dL (70-99) Calcium Level 9.0 mg/dL (8.5-10.1) 8.5 mg/dL (8.5-10.1) Thyroid Stimulating Hormone (TSH) 89.322 uIU/mL (0.358-3.74) Free Thyroxine 0.71 ng/dL (0.76-1.46) Free Triiodothyronine (T3) pg/mL 0.97 pg/mL (2.18-3.98) Glucose (Fingerstick) 121 mg/dL (70-99) 139 mg/dL (70-99) BUN/Creatinine Ratio 17 (6-20) Total Bilirubin 1.6 mg/dL (0.2-1.0) Aspartate Amino Transf (AST/SGOT) 18 U/L (15-37) Alanine Aminotransferase (ALT/SGPT) 12 U/L (16-63) Alkaline Phosphatase 135 U/L (46-116) Total Protein 7.1 g/dL (6.4-8.2) Albumin 2.6 g/dL (3.4-5.0) Albumin/Globulin Ratio 0.6 (1.0-1.7) Prostate Specific Antigen 0.64 ng/mL (0.00-4.00) Test 03/03/18 08:04 03/03/18 11:28 Glucose (Fingerstick) 119 mg/dL (70-99) 155 mg/dL (70-99) SHANNON BEVERLY APRN Mar 03, 2018 12:02
[2018-03-03] MEDS: AMPICILLIN/SULBACTAM 3 GM in IV NORMAL SALINE 100ML 100 ML IV SCH ×3 (13:04→23:35)
[2018-03-03] MEDS ORDERED: IV NORMAL SALINE 500ML BAG 500 ML IV ONE ×2 (14:00→18:15)
--- NOTE | 2018-03-03 15:06 | CARD ---
MR#: [id number] Date of Study: 03/03/2018 Ordering Physician: RK BRIDGES, Referring Physician: RK BRIDGES Tech: TIM Castelan APPROVED REPORT EXAM: Two-dimensional and M-mode echocardiogram with Doppler and color Doppler. Other Information Quality : AverageHR: 97bpm INDICATION LV Function:Systolic Surgery/Intervention Pacemaker: Date: 05/2012 RISK FACTORS Obesity 2D DIMENSIONS Left Atrium(2D)3.5 (1.6-4.0cm)IVSd1.5 (0.7-1.1cm) Aortic Root(2D)3.6 (2.0-3.7cm)LVDd4.7 (3.9-5.9cm) LVOT Diameter2.0 (1.8-2.4cm)PWd1.3 (0.7-1.1cm) IVSs1.8 (0.8-1.2cm)LVDs4.2 (2.5-4.0cm) FS (%) 11.1 %PWs1.5 (0.8-1.2cm) SV25.1 mlLVEF(%)24.1 (>50%) M-Mode DIMENSIONS IVSd1.60 (0.7-1.1cm)LVDd5.47 (4.0-5.6cm) PWd1.10 (0.7-1.1cm)IVSs1.67 cm FS (%) 15 %LVDs4.23 (2.0-3.8cm) PWs1.47 cmLVEF(%)30 (>50%) Aortic Valve AoV Peak Jeffery.96.9cm/sAoV VTI18.0cm AO Peak GR.3.8mmHgLVOT Peak Jeffery.62.7cm/s LVOT VTI 12.92cmAO Mean GR.2mmHg YAQUELIN (VMAX)1.85wq8JYV (VTI)2.20cm2 AI P 1/2 [id number] Mitral Valve MV E Peak Gr.31mmHgMV DECEL [id number] MV LTZ12pxTCE (PHT)2.97cm2 Pulmonary Valve PV Peak Ldytkasy32.2cm/sPV Peak Grad.2mmHg Tricuspid Valve TR P. Oecljufj591yl/sRAP [id number] TR Peak Gr.[id number] LEFT VENTRICLE The left ventricle is normal size. There is mild to moderate concentric left ventricular hypertrophy. Left ventricle systolic function is severely impaired. The Ejection Fraction is 25-30%. There is rui bal hypokinesis of the left ventricle with anterior wall predominance. Tissue Doppler imaging reveals moderate left ventricular diastolic dysfunction. RIGHT VENTRICLE The right ventricle is moderate to severely dilated. The right ventricular systolic function is ellie l. There is a pacemaker/icd lead noted in the RV/RA ATRIA The left atrium is moderately dilated. The right atrium is moderately dilated. The interatrial septum is intact with no evidence for an atrial septal defect or patent foramen ovale as noted on 2-D or Do ppler imaging. AORTIC VALVE The aortic valve is moderately thickened. Doppler and Color Flow revealed mild aortic regurgitation. There is no significant aortic valvular stenosis. There is no aortic valvular vegetation. MITRAL VALVE The mitral valve is calcified and displays decreased opening. There is no evidence of mitral valve pr olapse. There is no mitral valve stenosis. Doppler and Color-flow revealed mild to moderate mitral re gurgitation. TRICUSPID VALVE The tricuspid valve is not well visualized. Doppler and Color Flow revealed mild tricuspid regurgitat ion. There is mild pulmonary hypertension. The PA pressure was estimated at 30 mmHg. There is no tric uspid valve stenosis. PULMONIC VALVE The pulmonic valve is not well visualized. Doppler and Color Flow revealed trace pulmonic valvular re gurgitation. There is no pulmonic valvular stenosis. GREAT VESSELS The aortic root is normal in size. The IVC is dilated and collapses <50% with inspiration. PERICARDIAL EFFUSION There is no pleural effusion. There is no evidence of significant pericardial effusion. Critical Notification Critical Value: No <Conclusion> Left ventricle systolic function is severely impaired. The Ejection Fraction is 25-30%. There is global hypokinesis of the left ventricle with anterior wall predominance. The right ventricle is moderate to severely dilated. The right ventricular systolic function is normal. There is a pacemaker/icd lead noted in the RV/RA Doppler and Color Flow revealed mild aortic regurgitation. Doppler and Color-flow revealed mild to moderate mitral regurgitation. Doppler and Color Flow revealed mild tricuspid regurgitation. There is mild pulmonary hypertension. T he PA pressure was estimated at 30 mmHg. Signed by : Iain Jimenez, Electronically Approved : 03/03/2018 15:04:40
[2018-03-03 16:19] LABS: HEMOGLOBIN A1C 6.7 % (4.8-5.6)
--- NOTE | 2018-03-03 16:39 | CONS ---
DATE OF CONSULTATION: 03/03/2018 REQUESTING PHYSICIAN: Dr. Gill. REASON FOR CONSULTATION: Question Willian's gangrene. HISTORY OF PRESENT ILLNESS: This is an 82-year-old gentleman who is a prisoner who was brought in because he was unable to urinate and they tried to put a Flores catheter, was unsuccessful. Eventually here in the ER, a Flores has been placed. The patient has significant scrotal swelling and the question was raised about Willian's gangrene. The patient also has leg redness. The scrotal swelling is for 3 days or 4 days, leg redness is for about a month. Denies any fever, denies any nausea, vomiting, diarrhea, chest pain, shortness of breath, abdominal pain. PAST MEDICAL HISTORY: Positive for diabetes mellitus, hypertension, COPD, coronary artery disease, congestive heart failure, pacemaker in place, hyperlipidemia. SOCIAL HISTORY: Negative for smoking, alcohol, illicit drug use. ALLERGIES: No known drug allergies. CURRENT MEDICATIONS: Reviewed. The patient is not on any antibiotics. REVIEW OF SYSTEMS: As per HPI. All other systems reviewed are negative. PHYSICAL EXAMINATION: GENERAL: Alert, oriented gentleman, not in distress. VITAL SIGNS: Stable, afebrile. HEENT: NAD. NECK: Supple, no JVP, no lymphadenopathy. LUNGS: Clear. HEART: S1, S2 regular. ABDOMEN: Benign. He does have significant scrotal swelling, although there is no erythema, there is no wound, there is no necrotic area. There is no other sign of gangrene or even infection, much of anything on the scrotal area. EXTREMITIES: The patient does have erythema of the leg. The patient appears to have chronic stasis dermatitis on top of that probably secondary cellulitis proximally. The patient also has leg edema. NEUROLOGIC: Intact. LABORATORY DATA: White count is normal. BUN and creatinine is 29 and 1.7. Scrotal ultrasound done, which showed diffuse scrotal swelling, cellulitis of Willian's gangrene must be excluded clinically. IMPRESSION: 1. Severe scrotal swelling, do not believe the patient has Willian's gangrene. 2. Lower extremity chronic stasis dermatitis with secondary acute cellulitis, although appears less likely with no other clinical signs of infection, but it could not be entirely ruled out. 3. Benign prostatic hypertrophy. 4. Congestive heart failure. 5. Pacemaker. 6. Hypertension. RECOMMENDATIONS: Would give short course of Unasyn, supportive care, leg elevation, scrotal elevation, diuresis, UA and soon to switch over to then oral Augmentin. Thank you very much, Dr. Gill for giving me an opportunity to participate in this patient's care. ZARI HAGER MD DR: STEPHEN/elmo JOB#: [id number] / [id number]
[2018-03-03 17:54] LABS: BILIRUBIN,URINE NEGATIVE (NEG); CLARITY,URINE CLEAR; COLOR,URINE YELLOW; NITRITE,URINE NEGATIVE (NEG); PROTEIN,URINE NEGATIVE (NEG-TRACE)
[2018-03-03 18:03] LABS: BACTERIA,URINE 0 /HPF (0-FEW); RBC,URINE OCC /HPF (0-2)
[2018-03-03 18:04] LABS: HYALINE CASTS, URINE MODERATE /HPF
[2018-03-03] MEDS: ATORVASTATIN CALCIUM 40 MG TABLET. PO SCH (21:42)
[2018-03-04 03:00] VITALS: BP 102/66
[2018-03-04] MEDS: LEVOTHYROXINE 150 MCG TABLET PO SCH (06:34)
[2018-03-04] MEDS: CLOPIDOGREL BISULFATE 75 MG TABLET PO SCH (06:34)
[2018-03-04] MEDS: AMPICILLIN/SULBACTAM 3 GM in IV NORMAL SALINE 100ML 100 ML IV SCH ×3 (06:34→18:27)
[2018-03-04 07:00] VITALS: BP 111/79
[2018-03-04] MEDS: ALBUTEROL SULFATE 2.5 MG/3 ML NEBU. NEB SCH ×3 (07:00→20:02)
[2018-03-04] MEDS: INSULIN LISPRO 300 UNITS/3 ML INSULN.PEN. SQ SCH ×3 (08:00→17:00)
[2018-03-04 08:13] LABS: ALBUMIN 2.5 g/dL (3.4-5.0); ALBUMIN/GLOBULIN RATIO 0.5 (1.0-1.7); CALCIUM 8.4 mg/dL (8.5-10.1); CREATININE 2.2 mg/dL (0.7-1.3); GFR 28.7; POTASSIUM 4.7 mmol/L (3.5-5.1); TOTAL BILIRUBIN 1.2 mg/dL (0.2-1.0); TOTAL PROTEIN 7.2 g/dL (6.4-8.2)
[2018-03-04] MEDS: TAMSULOSIN 0.4 MG CAP.ER.24H. PO SCH (08:32)
[2018-03-04] MEDS: CARVEDILOL 12.5 MG TABLET. PO SCH ×2 (08:32→17:00)
[2018-03-04] MEDS: glipiZIDE ER 2.5 MG TAB.ER.24 PO SCH (08:32)
[2018-03-04] MEDS: CYANOCOBALAMIN (VITAMIN B-12) 1,000 MCG TABLET. PO SCH (08:32)
[2018-03-04] MEDS: POTASSIUM CHLORIDE 10 MEQ TABLET.ER. PO SCH (08:33)
[2018-03-04] MEDS: ASPIRIN ENTERIC COATED 81 MG TABLET.DR. PO SCH (08:33)
[2018-03-04] MEDS: DOCUSATE SODIUM 100 MG CAPSULE. PO SCH (08:33)
[2018-03-04] MEDS: FOLIC ACID 1 MG TABLET. PO SCH (08:33)
[2018-03-04] MEDS: AMIODARONE HCL 200 MG TABLET. PO SCH ×2 (08:34→21:34)
[2018-03-04] MEDS: FUROSEMIDE 40 MG/4 ML VIAL. IVP SCH (08:34)
--- NOTE | 2018-03-04 08:57 | PDOC ---
Infectious Disease Note Subjective Subjective pt is feeling little better, less pain ROS ROS no n/v/d/sob did have problem with low BP, now better Vital Sign Vital Signs Vital Signs Date Time Temp Pulse Resp B/P (MAP) Pulse Ox O2 Delivery O2 Flow Rate FiO2 03/04/18 08:34 99 111/79 03/04/18 07:10 Room Air 03/04/18 07:01 97 2.0 03/04/18 07:00 97.7 26 97.7 Physical Exam PHYSICAL EXAM GENERAL: Alert, oriented gentleman, not in distress. VITAL SIGNS: Stable, afebrile. HEENT: NAD. NECK: Supple, no JVP, no lymphadenopathy. LUNGS: Clear. HEART: S1, S2 regular. ABDOMEN: Benign. He does have significant scrotal swelling, although there is no erythema, there is no wound, there is no necrotic area. There is no other sign of gangrene or even infection, much of anything on the scrotal area. EXTREMITIES: The patient does have erythema of the leg. The patient appears to have chronic stasis dermatitis on top of that probably secondary cellulitis proximally. The patient also has leg edema.,, erythem improving, scrotal swelling is less NEUROLOGIC: Intact. Labs Lab Laboratory Tests Test 03/03/18 10:10 03/03/18 11:28 03/03/18 15:53 03/03/18 17:15 Erythrocyte Sedimentation Rate 18 (0-15) Glucose (Fingerstick) 155 mg/dL (70-99) 131 mg/dL (70-99) Lactic Acid Level 2.2 mmol/L (0.4-2.0) Test 03/03/18 17:25 03/03/18 20:36 03/03/18 21:20 03/04/18 06:10 Urine Collection Type Unknown Urine Color Yellow Urine Clarity Clear Urine pH 5.0 Urine Specific [place] 1.015 Urine Protein Negative mg/dL (NEG-TRACE) Urine Glucose (UA) Negative mg/dL (NEG) Urine Ketones (Stick) Negative mg/dL (NEG) Urine Blood Negative (NEG) Urine Nitrite Negative (NEG) Urine Bilirubin Negative (NEG) Urine Urobilinogen Dipstick 1.0 mg/dL (0.2 mg/dL) Urine Leukocyte Esterase Small (NEG) Urine RBC Occ /HPF (0-2) Urine WBC 1-4 /HPF (0-4) Urine Squamous Epithelial Cells None /LPF Urine Bacteria 0 /HPF (0-FEW) Urine Hyaline Casts Moderate /HPF Urine Mucus Mod /LPF Glucose (Fingerstick) 155 mg/dL (70-99) Lactic Acid Level 1.4 mmol/L (0.4-2.0) Sodium Level 135 mmol/L (136-145) Potassium Level 4.7 mmol/L (3.5-5.1) Chloride Level 104 mmol/L (98-107) Carbon Dioxide Level 24 mmol/L (21-32) Anion Gap 7 (6-14) Blood Urea Nitrogen 38 mg/dL (8-26) Creatinine 2.2 mg/dL (0.7-1.3) Estimated GFR (Cockcroft-Gault) 28.7 BUN/Creatinine Ratio 17 (6-20) Glucose Level 105 mg/dL (70-99) Calcium Level 8.4 mg/dL (8.5-10.1) Total Bilirubin 1.2 mg/dL (0.2-1.0) Aspartate Amino Transf (AST/SGOT) 19 U/L (15-37) Alanine Aminotransferase (ALT/SGPT) 12 U/L (16-63) Alkaline Phosphatase 126 U/L (46-116) Total Protein 7.2 g/dL (6.4-8.2) Albumin 2.5 g/dL (3.4-5.0) Albumin/Globulin Ratio 0.5 (1.0-1.7) Test 03/04/18 06:40 Lactic Acid Level 1.9 mmol/L (0.4-2.0) Objective Assessment Scrotal edema , do not believe has [place] gangrene Lower ext chronic stasis dermatitis , secondary acute cellulitis appears less likely BPH CHF Pacemaker HTN Renal insufficiency Plan Plan of Care Unasyn and zyvox short coarse, then oral leg elevation scrotal support and elevation ZARI HAGER MD Mar 04, 2018 08:57
--- NOTE | 2018-03-04 09:16 | PDOC ---
SUBJECTIVE Subjective Patient doing ok today, he thinks that the swelling is slowly getting better. Baker catheter is not bothering him and seems to be draining well. OBJECTIVE Objective Physical Exam: General appearance: Alert and Oriented Head: Normocephalic, without obvious abnormality Eyes: conjunctivae/corneas clear. PERRL, EOM's intact. Fundi benign Lungs: regular respirations, non labored breathing Pelvic: enlarged scrotum with anasarca. This is elevated with rolled towels, ice pack is in place. Baker catheter in place draining clear yellow urine. Phallus is buried. Depends in place providing light compression. Vital Signs Vital Signs Date Time Temp Pulse Resp B/P (MAP) Pulse Ox O2 Delivery O2 Flow Rate FiO2 03/04/18 08:34 99 111/79 03/04/18 08:32 99 111/79 03/04/18 07:10 Room Air 03/04/18 07:01 97 Nasal Cannula 2.0 03/04/18 07:00 97.7 99 26 111/79 (90) 96 Nasal Cannula 2.0 97.7 03/04/18 03:00 97.6 97 18 102/66 (78) 93 Room Air 97.6 03/03/18 23:00 97.4 97 18 82/61 (68) 94 Room Air 97.4 03/03/18 21:46 99 85/61 03/03/18 20:00 Room Air 03/03/18 19:24 95 Nasal Cannula 2.0 03/03/18 19:00 97.4 97 18 83/42 (56) 99 Nasal Cannula 2.0 97.4 03/03/18 17:00 96 85/40 03/03/18 16:00 96 18 85/40 (55) 96 03/03/18 15:00 98.7 96 18 72/39 (50) 96 Room Air 98.7 03/03/18 13:46 82/47 (59) 03/03/18 13:40 79/44 (56) 03/03/18 13:34 Room Air 03/03/18 13:11 Room Air 03/03/18 13:04 Room Air 03/03/18 12:30 87/53 (64) 03/03/18 12:00 97.0 99 18 89/55 (66) 95 Room Air 97.0 03/03/18 12:00 59 89/53 I & O Intake and Output 03/04/18 07:00 Intake Total 1730 ml Output Total 2600 ml Balance -870 ml Intake Oral 1730 ml Output Urine Total 2600 ml # Bowel Movements 1 PHYSICAL EXAM Physical Exam Physical Exam: General appearance: Alert and Oriented Head: Normocephalic, without obvious abnormality Eyes: conjunctivae/corneas clear. PERRL, EOM's intact. Fundi benign Lungs: regular respirations, non labored breathing Pelvic: enlarged scrotum with anasarca. This is elevated with rolled towels, ice pack is in place. Baker catheter in place draining clear yellow urine. Phallus is buried. Depends in place providing light compression. ASSESSMENT/PLAN Assessment/Plan Scrotal edema is from anasarca, pt does note some improvement. Continue to treat volume overload, will defer to medical team. Continue baker catheter over the weekend. Will re-assess Wednesday. If significant improvement, may do a voiding trial at that time. Continue compression with jock strap/Depends. Elevate scrotum with towel if possible. Continue ice packs for comfort. Will follow peripherally and then re-assess on Wednesday. Please call with questions or problems over the weekend. COMMENT Lab Laboratory Tests Test 03/03/18 10:10 03/03/18 11:28 03/03/18 15:53 03/03/18 17:15 Erythrocyte Sedimentation Rate 18 (0-15) Glucose (Fingerstick) 155 mg/dL (70-99) 131 mg/dL (70-99) Lactic Acid Level 2.2 mmol/L (0.4-2.0) Test 03/03/18 17:25 03/03/18 20:36 03/03/18 21:20 03/04/18 06:10 Urine Collection Type Unknown Urine Color Yellow Urine Clarity Clear Urine pH 5.0 Urine Specific [place] 1.015 Urine Protein Negative mg/dL (NEG-TRACE) Urine Glucose (UA) Negative mg/dL (NEG) Urine Ketones (Stick) Negative mg/dL (NEG) Urine Blood Negative (NEG) Urine Nitrite Negative (NEG) Urine Bilirubin Negative (NEG) Urine Urobilinogen Dipstick 1.0 mg/dL (0.2 mg/dL) Urine Leukocyte Esterase Small (NEG) Urine RBC Occ /HPF (0-2) Urine WBC 1-4 /HPF (0-4) Urine Squamous Epithelial Cells None /LPF Urine Bacteria 0 /HPF (0-FEW) Urine Hyaline Casts Moderate /HPF Urine Mucus Mod /LPF Glucose (Fingerstick) 155 mg/dL (70-99) Lactic Acid Level 1.4 mmol/L (0.4-2.0) Sodium Level 135 mmol/L (136-145) Potassium Level 4.7 mmol/L (3.5-5.1) Chloride Level 104 mmol/L (98-107) Carbon Dioxide Level 24 mmol/L (21-32) Anion Gap 7 (6-14) Blood Urea Nitrogen 38 mg/dL (8-26) Creatinine 2.2 mg/dL (0.7-1.3) Estimated GFR (Cockcroft-Gault) 28.7 BUN/Creatinine Ratio 17 (6-20) Glucose Level 105 mg/dL (70-99) Calcium Level 8.4 mg/dL (8.5-10.1) Total Bilirubin 1.2 mg/dL (0.2-1.0) Aspartate Amino Transf (AST/SGOT) 19 U/L (15-37) Alanine Aminotransferase (ALT/SGPT) 12 U/L (16-63) Alkaline Phosphatase 126 U/L (46-116) Total Protein 7.2 g/dL (6.4-8.2) Albumin 2.5 g/dL (3.4-5.0) Albumin/Globulin Ratio 0.5 (1.0-1.7) Test 03/04/18 06:40 03/04/18 08:14 Lactic Acid Level 1.9 mmol/L (0.4-2.0) Glucose (Fingerstick) 95 mg/dL (70-99) Imaging Images scrotal us with skin edema. bl small hydroceles SHANNON BEVERLY APRN Mar 04, 2018 09:16
[2018-03-04] MEDS: LINEZOLID 600 MG TABLET PO SCH ×2 (09:40→21:35)
--- NOTE | 2018-03-04 10:50 | PDOC2 ---
CONSULT Date of Consult Date of Consult DATE: 03/04/18 TIME: 10:42 Reason for Consult Reason for Consult: JUAN DANIEL Referring Physician Referring Physician: CYRUS Identification/Chief Complaint Chief Complaint THIS IS AN 82 YR OLD WITH INITIAL COMPLAINTS OF DIFFICULTY VOIDING. HE HAS BILATERAL HYDROCELES, UROLOGY HAS PLACED A PRESCOTT CATHETER. HAS CR OF 1.7 ON INITIAL LABS AND THEN UP TO 2.2 TODAY. HE DOES NOT KNOW IF HE HAS ANY CKD. NO OTHER LABS AVAILABLE HERE. HE DOES HAVE A HX OF HTN AND DM II. NO NEPHROTOXINS NOTED. HAS HAD SOME FREQUENCY IN THE PAST. CURRENTLY ALSO BEING TREATED FOR LE CELLULITIS Source Source: Chart review, Patient History of Present Illness Reason for Visit: ABOVE Past Medical History Cardiovascular: AFIB, CAD, HTN, IA, Hyperlipidemia Pulmonary: COPD GI: No pertinent hx Heme/Onc: Anemia NOS Hepatobiliary: No pertinent hx Psych: No pertinent hx Musculoskeletal: low back pain Rheumatologic: No pertinent hx Infectious disease: No pertinent hx Renal/: Chronic renal insuff Endocrine: Diabetes Past Surgical History Past Surgical History: Pacemaker Family History Family History: Hypertension Social History No ALCOHOL: none Drugs: None Current Medications Current Medications Current Medications Ondansetron HCl (Zofran) 4 mg PRN Q8HRS PRN IV NAUSEA/VOMITING; Start 03/02/18 at 17:30; Stop 03/03/18 at 17:29; Status DC Morphine Sulfate (Morphine Sulfate) 4 mg PRN Q2HR PRN IV PAIN Last administered on 03/03/18at 13:04; Start 03/02/18 at 17:30; Stop 03/03/18 at 17:29 ; Status DC Acetaminophen (Tylenol) 650 mg PRN Q4HRS PRN PO FEVER; Start 03/02/18 at 17:30 ; Stop 03/03/18 at 15:52; Status DC Furosemide (Lasix) 60 mg 1X ONCE IVP Last administered on 03/02/18at 23:02; Start 03/02/18 at 17:30; Stop 03/02/18 at 17:50; Status DC Acetaminophen (Tylenol) 325 mg PRN Q4HRS PRN PO MILD PAIN / TEMP Last administered on 03/04/18at 08:33; Start 03/02/18 at 17:30 Albuterol Sulfate (Ventolin Neb Soln) 2.5 mg TID NEB Last administered on 07:00; Start 03/02/18 at 17:30 Amiodarone HCl (Cordarone) 200 mg BID PO Last administered on 03/03/18 21:46; Start 03/02/18 at 21:00 Aspirin (Ecotrin) 81 mg DAILY08 PO Last administered on 03/04/18 08:33; Start 03/02/18 at 18:30 Atorvastatin Calcium (Lipitor) 40 mg QHS PO Last administered on 03/03/18 21: 42; Start 03/02/18 at 21:00 Carvedilol (Coreg) 12.5 mg BIDWMEALS PO Last administered on 03/04/18 08:32; Start 03/02/18 at 18:30 Clopidogrel Bisulfate (Plavix) 75 mg DAILY07 PO Last administered on 03/04/18 06:34; Start 03/02/18 at 18:30 Cyanocobalamin (Vitamin B-12) 1,000 mcg DAILY PO Last administered on 08:32; Start 03/02/18 at 18:30 Diltiazem HCl (Cardizem 24hr Cd) 240 mg DAILYWLUN PO ; Start 03/03/18 at 12:00 Docusate Sodium (Colace) 100 mg DAILY PO Last administered on 03/04/18 08:33; Start 03/02/18 at 18:30 Folic Acid (Folic Acid) 1 mg DAILY PO Last administered on 03/04/18 08:33; Start 03/02/18 at 18:30 Glipizide (Glucotrol Er) 2.5 mg DAILY PO Last administered on 03/04/18 08:32; Start 03/03/18 at 09:00 Potassium Chloride (Klor-Con) 10 meq DAILY PO Last administered on 03/04/18 08 :33; Start 03/02/18 at 18:30 Tamsulosin HCl (Flomax) 0.4 mg DAILY PO Last administered on 03/04/18 08:32; Start 03/02/18 at 18:30 Fluocinonide (Lidex) 1 ayad PRN BID PRN TP IRRITATED AREAS; Start 03/02/18 at 21 :00 Levothyroxine Sodium (Synthroid) 150 mcg DAILY07 PO Last administered on 8/17/ 18at 06:34; Start 03/02/18 at 18:30 Metformin HCl (Glucophage) 1,000 mg BIDWMEALS PO Last administered on at 08:32; Start 03/03/18 at 08:00 Insulin Human Lispro (HumaLOG) 0-9 UNITS TIDWMEALS SQ ; Start 03/03/18 at 08:00 Dextrose (Dextrose 50%-Water Syringe) 12.5 gm PRN Q15MIN PRN IV SEE COMMENTS; Start 03/02/18 at 17:30 Furosemide (Lasix) 40 mg DAILY IVP Last administered on 03/04/18at 08:34; Start 03/03/18 at 09:00 Ampicillin Sodium/ Sulbactam Sodium 3 gm/Sodium Chloride 100 ml @ 200 mls/hr Q6HRS IV Last administered on 03/04/18at 06:34; Start 03/03/18 at 12:00 Sodium Chloride 500 ml @ 500 mls/hr 1X ONCE IV Last administered on at 13:54; Start 03/03/18 at 14:00; Stop 03/03/18 at 14:59; Status DC Sodium Chloride 500 ml @ 500 mls/hr 1X ONCE IV Last administered on at 18:15; Start 03/03/18 at 18:15; Stop 03/03/18 at 19:14; Status DC Linezolid (Zyvox) 600 mg BID PO Last administered on 03/04/18at 09:40; Start at 09:30 Lactobacillus Rhamnosus (Culturelle) 1 cap BID PO ; Start 03/04/18 at 11:00 Active Scripts Active Carvedilol 12.5 Mg Tablet 12.5 Mg PO BIDWMEALS Diltiazem 24HR Cd (Diltiazem Hcl) 240 Mg Cap.er.24h 240 Mg PO DAILYWLUN Amiodarone Hcl 200 Mg Tablet 200 Mg PO BID Vitamin B-12 (Cyanocobalamin (Vitamin B-12)) 1,000 Mcg Tablet 1,000 Mcg PO DAILY Reported Levothyroxine Sodium 150 Mcg Tablet 1 Tab PO DAILY Glipizide 5 Mg Tablet 2.5 Mg PO DAILY Tylenol (Acetaminophen) 325 Mg Tablet 1 Tab PO PRN Q4HRS Flomax (Tamsulosin Hcl) 0.4 Mg Cap.er.24h 1 Cap PO DAILY Potassium Chloride 10 Meq Capsule.er 10 Meq PO DAILY Lasix (Furosemide) 40 Mg Tablet 1 Tab PO DAILY Folic Acid 1 Mg Tablet 1 Tab PO DAILY Colace (Docusate Sodium) 100 Mg Capsule 1 Cap PO DAILY Clopidogrel (Clopidogrel Bisulfate) 75 Mg Tablet 1 Tab PO DAILY Betamethasone Dipropionate 15 Gm Cream..g. 1 Ayad TP BID Atorvastatin Calcium 40 Mg Tablet 1 Tab PO DAILY Aspir 81 (Aspirin) 81 Mg Tablet.dr 1 Tab PO DAILY [place] (Ciclesonide) 6.1 Gm Hfa.aer.ad 6.1 Gm IH Ventolin Hfa Inhaler (Albuterol Sulfate) 18 Gm Hfa.aer.ad 18 Gm IH Albuterol Sulfate Neb Soln (Albuterol Sulfate) 2.5 Mg/3 Ml Vial.neb 2.5 Mg IH TID PRN Metformin Hcl 1,000 Mg Tablet 1,000 Mg PO BID Allergies Allergies: Coded Allergies: I S O L A T I O N *CONTACT* (Verified Allergy, Unknown, 03/04/18) mrsa No Known Medication Allergies (Verified Allergy, Unknown, 03/04/18) ROS General: YES: Fatigue, Malaise PSYCHOLOGICAL ROS: YES: Anxiety, Depression Eyes: Yes Decreased vision HEENT: YES: Heacaches Respiratory: YES: Cough Cardiovascular: yes Edema Gastrointestinal: Yes Constipation Genitourinary: YES Frequency Musculoskeletal: Yes Muscular Weakness Neurological: Yes Weakness Skin: Yes Skin Lesion Changes Physical Exam General: Alert, Oriented X3, Cooperative, No acute distress HEENT: Atraumatic, PERRLA, EOMI, Mucous membr. moist/pink Lungs: Clear to auscultation, Normal air movement Heart: Regular rate Abdomen: Normal bowel sounds, Soft, No tenderness Extremities: Other Skin: Other (BILATERAL LE ERYTHEMA AND STASIS DISCOLORATIONI) Neuro: Normal speech, Sensation intact Psych/Mental Status: Mood NL MUSCULOSKELETAL: No deformity Vitals VITALS Vital Signs Date Time Temp Pulse Resp B/P (MAP) Pulse Ox O2 Delivery O2 Flow Rate FiO2 03/04/18 08:34 99 111/79 03/04/18 07:10 Room Air 03/04/18 07:01 97 2.0 03/04/18 07:00 97.7 26 97.7 Labs Labs Laboratory Tests Test 03/02/18 19:20 03/02/18 21:00 8/15/18 21:02 03/02/18 23:54 White Blood Count 8.5 x10^3/uL (4.0-11.0) Red Blood Count 4.64 x10^6/uL (4.30-5.70) Hemoglobin 13.5 g/dL (13.0-17.5) Hematocrit 42.0 % (39.0-53.0) Mean Corpuscular Volume 91 fL (79-100) Mean Corpuscular Hemoglobin 29 pg (25-35) Mean Corpuscular Hemoglobin Concent 32 g/dL (31-37) Red Cell Distribution Width 21.0 % (11.5-14.5) Platelet Count 313 x10^3/uL (140-400) Neutrophils (%) (Auto) 79 % (31-73) Lymphocytes (%) (Auto) 8 % (24-48) Monocytes (%) (Auto) 11 % (0-9) Eosinophils (%) (Auto) 1 % (0-3) Basophils (%) (Auto) 1 % (0-3) Neutrophils # (Auto) 6.7 x10^3uL (1.8-7.7) Lymphocytes # (Auto) 0.6 x10^3/uL (1.0-4.8) Monocytes # (Auto) 0.9 x10^3/uL (0.0-1.1) Eosinophils # (Auto) 0.1 x10^3/uL (0.0-0.7) Basophils # (Auto) 0.1 x10^3/uL (0.0-0.2) Platelet Estimate Adequate (ADEQUATE) Giant Platelets Occ Polychromasia Slight Anisocytosis Mod Target Cells Occ Sodium Level 137 mmol/L (136-145) Potassium Level 4.5 mmol/L (3.5-5.1) Chloride Level 104 mmol/L (98-107) Carbon Dioxide Level 25 mmol/L (21-32) Anion Gap 8 (6-14) Blood Urea Nitrogen 26 mg/dL (8-26) Creatinine 1.7 mg/dL (0.7-1.3) Estimated GFR (Cockcroft-Gault) 38.6 Glucose Level 114 mg/dL (70-99) Hemoglobin A1c 6.7 % (4.8-5.6) Calcium Level 9.0 mg/dL (8.5-10.1) Thyroid Stimulating Hormone (TSH) 89.322 uIU/mL (0.358-3.74) Free Thyroxine 0.71 ng/dL (0.76-1.46) Free Triiodothyronine (T3) pg/mL 0.97 pg/mL (2.18-3.98) Nasal Screen MRSA (PCR) Positive (Negative) Glucose (Fingerstick) 121 mg/dL (70-99) 139 mg/dL (70-99) Test 03/03/18 04:15 03/03/18 08:04 03/03/18 10:10 03/03/18 11:28 Sodium Level 137 mmol/L (136-145) Potassium Level 4.4 mmol/L (3.5-5.1) Chloride Level 105 mmol/L (98-107) Carbon Dioxide Level 28 mmol/L (21-32) Anion Gap 4 (6-14) Blood Urea Nitrogen 29 mg/dL (8-26) Creatinine 1.7 mg/dL (0.7-1.3) Estimated GFR (Cockcroft-Gault) 38.6 BUN/Creatinine Ratio 17 (6-20) Glucose Level 130 mg/dL (70-99) Calcium Level 8.5 mg/dL (8.5-10.1) Total Bilirubin 1.6 mg/dL (0.2-1.0) Aspartate Amino Transf (AST/SGOT) 18 U/L (15-37) Alanine Aminotransferase (ALT/SGPT) 12 U/L (16-63) Alkaline Phosphatase 135 U/L (46-116) Total Protein 7.1 g/dL (6.4-8.2) Albumin 2.6 g/dL (3.4-5.0) Albumin/Globulin Ratio 0.6 (1.0-1.7) Prostate Specific Antigen 0.64 ng/mL (0.00-4.00) Glucose (Fingerstick) 119 mg/dL (70-99) 155 mg/dL (70-99) Erythrocyte Sedimentation Rate 18 (0-15) Test 03/03/18 15:53 03/03/18 17:15 03/03/18 17:25 03/03/18 20:36 Glucose (Fingerstick) 131 mg/dL (70-99) 155 mg/dL (70-99) Lactic Acid Level 2.2 mmol/L (0.4-2.0) Urine Collection Type Unknown Urine Color Yellow Urine Clarity Clear Urine pH 5.0 Urine Specific [place] 1.015 Urine Protein Negative mg/dL (NEG-TRACE) Urine Glucose (UA) Negative mg/dL (NEG) Urine Ketones (Stick) Negative mg/dL (NEG) Urine Blood Negative (NEG) Urine Nitrite Negative (NEG) Urine Bilirubin Negative (NEG) Urine Urobilinogen Dipstick 1.0 mg/dL (0.2 mg/dL) Urine Leukocyte Esterase Small (NEG) Urine RBC Occ /HPF (0-2) Urine WBC 1-4 /HPF (0-4) Urine Squamous Epithelial Cells None /LPF Urine Bacteria 0 /HPF (0-FEW) Urine Hyaline Casts Moderate /HPF Urine Mucus Mod /LPF Test 03/03/18 21:20 03/04/18 06:10 03/04/18 06:40 03/04/18 08:14 Lactic Acid Level 1.4 mmol/L (0.4-2.0) 1.9 mmol/L (0.4-2.0) Sodium Level 135 mmol/L (136-145) Potassium Level 4.7 mmol/L (3.5-5.1) Chloride Level 104 mmol/L (98-107) Carbon Dioxide Level 24 mmol/L (21-32) Anion Gap 7 (6-14) Blood Urea Nitrogen 38 mg/dL (8-26) Creatinine 2.2 mg/dL (0.7-1.3) Estimated GFR (Cockcroft-Gault) 28.7 BUN/Creatinine Ratio 17 (6-20) Glucose Level 105 mg/dL (70-99) Calcium Level 8.4 mg/dL (8.5-10.1) Total Bilirubin 1.2 mg/dL (0.2-1.0) Aspartate Amino Transf (AST/SGOT) 19 U/L (15-37) Alanine Aminotransferase (ALT/SGPT) 12 U/L (16-63) Alkaline Phosphatase 126 U/L (46-116) Total Protein 7.2 g/dL (6.4-8.2) Albumin 2.5 g/dL (3.4-5.0) Albumin/Globulin Ratio 0.5 (1.0-1.7) Glucose (Fingerstick) 95 mg/dL (70-99) Laboratory Tests Test 03/03/18 11:28 03/03/18 15:53 03/03/18 17:15 03/03/18 17:25 Glucose (Fingerstick) 155 mg/dL (70-99) 131 mg/dL (70-99) Lactic Acid Level 2.2 mmol/L (0.4-2.0) Urine Collection Type Unknown Urine Color Yellow Urine Clarity Clear Urine pH 5.0 Urine Specific [place] 1.015 Urine Protein Negative mg/dL (NEG-TRACE) Urine Glucose (UA) Negative mg/dL (NEG) Urine Ketones (Stick) Negative mg/dL (NEG) Urine Blood Negative (NEG) Urine Nitrite Negative (NEG) Urine Bilirubin Negative (NEG) Urine Urobilinogen Dipstick 1.0 mg/dL (0.2 mg/dL) Urine Leukocyte Esterase Small (NEG) Urine RBC Occ /HPF (0-2) Urine WBC 1-4 /HPF (0-4) Urine Squamous Epithelial Cells None /LPF Urine Bacteria 0 /HPF (0-FEW) Urine Hyaline Casts Moderate /HPF Urine Mucus Mod /LPF Test 03/03/18 20:36 03/03/18 21:20 03/04/18 06:10 03/04/18 06:40 Glucose (Fingerstick) 155 mg/dL (70-99) Lactic Acid Level 1.4 mmol/L (0.4-2.0) 1.9 mmol/L (0.4-2.0) Sodium Level 135 mmol/L (136-145) Potassium Level 4.7 mmol/L (3.5-5.1) Chloride Level 104 mmol/L (98-107) Carbon Dioxide Level 24 mmol/L (21-32) Anion Gap 7 (6-14) Blood Urea Nitrogen 38 mg/dL (8-26) Creatinine 2.2 mg/dL (0.7-1.3) Estimated GFR (Cockcroft-Gault) 28.7 BUN/Creatinine Ratio 17 (6-20) Glucose Level 105 mg/dL (70-99) Calcium Level 8.4 mg/dL (8.5-10.1) Total Bilirubin 1.2 mg/dL (0.2-1.0) Aspartate Amino Transf (AST/SGOT) 19 U/L (15-37) Alanine Aminotransferase (ALT/SGPT) 12 U/L (16-63) Alkaline Phosphatase 126 U/L (46-116) Total Protein 7.2 g/dL (6.4-8.2) Albumin 2.5 g/dL (3.4-5.0) Albumin/Globulin Ratio 0.5 (1.0-1.7) Test 03/04/18 08:14 Glucose (Fingerstick) 95 mg/dL (70-99) Assessment/Plan Assessment/Plan IMP JUAN DANIEL WITH CR OF 2.2 ? CKD HTN DM II LE CELLULITIS/STASIS DISCOLORATION URINARY RETENTION S/P PRESCOTT PLAN HOLD LASIX HOLD METFORMIN HOLD KCL CONT FLOMAX RENAL SONOGRAM HYDRATION UROLOGY FOLLOWING FIDELIA METZGER MD Mar 04, 2018 10:50
[2018-03-04 11:00] VITALS: BP 99/69
--- NOTE | 2018-03-04 11:40 | PDOC ---
PROGRESS NOTES Chief Complaint Chief Complaint Urinary retention, status post successful placement of Flores catheter by urology , 03/02/18 Ascites History BPH on Flomax Bilateral scrotal enlargement, possibly hydroceles Bilateral lower extremity edema, some oozing HTN, afib , indwelling pacer - all chronic stable History of Present Illness History of Present Illness Pt seen and examined scrotal edema noted Flores catheter appears to have adequate drainage pt states the swelling has reduced since yesterday ID's notes have been reviewed and their input is appreciated B/L LE edema noted Vitals Vitals Vital Signs Date Time Temp Pulse Resp B/P (MAP) Pulse Ox O2 Delivery O2 Flow Rate FiO2 03/04/18 10:58 Nasal Cannula 2.0 03/04/18 08:34 99 111/79 03/04/18 07:01 97 03/04/18 07:00 97.7 26 97.7 Physical Exam General: Alert, Oriented X3, Cooperative, No acute distress Heart: Regular rate, Normal S1, Normal S2, No murmurs Lungs: Clear Abdomen: Normal bowel sounds, Soft, No tenderness Extremities: No clubbing, No cyanosis Skin: No rashes, Other (BILATERAL LE ERYTHEMA AND STASIS DISCOLORATIONI) Labs LABS Laboratory Tests Test 03/03/18 15:53 03/03/18 17:15 03/03/18 17:25 03/03/18 20:36 Glucose (Fingerstick) 131 mg/dL (70-99) 155 mg/dL (70-99) Lactic Acid Level 2.2 mmol/L (0.4-2.0) Urine Collection Type Unknown Urine Color Yellow Urine Clarity Clear Urine pH 5.0 Urine Specific [place] 1.015 Urine Protein Negative mg/dL (NEG-TRACE) Urine Glucose (UA) Negative mg/dL (NEG) Urine Ketones (Stick) Negative mg/dL (NEG) Urine Blood Negative (NEG) Urine Nitrite Negative (NEG) Urine Bilirubin Negative (NEG) Urine Urobilinogen Dipstick 1.0 mg/dL (0.2 mg/dL) Urine Leukocyte Esterase Small (NEG) Urine RBC Occ /HPF (0-2) Urine WBC 1-4 /HPF (0-4) Urine Squamous Epithelial Cells None /LPF Urine Bacteria 0 /HPF (0-FEW) Urine Hyaline Casts Moderate /HPF Urine Mucus Mod /LPF Test 03/03/18 21:20 03/04/18 06:10 03/04/18 06:40 03/04/18 08:14 Lactic Acid Level 1.4 mmol/L (0.4-2.0) 1.9 mmol/L (0.4-2.0) Sodium Level 135 mmol/L (136-145) Potassium Level 4.7 mmol/L (3.5-5.1) Chloride Level 104 mmol/L (98-107) Carbon Dioxide Level 24 mmol/L (21-32) Anion Gap 7 (6-14) Blood Urea Nitrogen 38 mg/dL (8-26) Creatinine 2.2 mg/dL (0.7-1.3) Estimated GFR (Cockcroft-Gault) 28.7 BUN/Creatinine Ratio 17 (6-20) Glucose Level 105 mg/dL (70-99) Calcium Level 8.4 mg/dL (8.5-10.1) Total Bilirubin 1.2 mg/dL (0.2-1.0) Aspartate Amino Transf (AST/SGOT) 19 U/L (15-37) Alanine Aminotransferase (ALT/SGPT) 12 U/L (16-63) Alkaline Phosphatase 126 U/L (46-116) Total Protein 7.2 g/dL (6.4-8.2) Albumin 2.5 g/dL (3.4-5.0) Albumin/Globulin Ratio 0.5 (1.0-1.7) Glucose (Fingerstick) 95 mg/dL (70-99) Review of Systems Review of Systems no co pain no co SOB Ascites Assessment and Plan Assessmemt and Plan Assessment: Urinary retention, status post successful placement of Flores catheter by urology , 03/02/18 Ascites History BPH on Flomax Bilateral scrotal enlargement, possibly hydroceles Bilateral lower extremity edema, some oozing HTN, afib , indwelling pacer - all chronic stable Plan: home meds I/Os 1:1 monitoring PTOT Comment Review of Relevant I have reviewed the following items kelsey (where applicable) has been applied. Labs Laboratory Tests Test 03/02/18 19:20 03/02/18 21:00 03/02/18 21:02 03/02/18 23:54 White Blood Count 8.5 x10^3/uL (4.0-11.0) Red Blood Count 4.64 x10^6/uL (4.30-5.70) Hemoglobin 13.5 g/dL (13.0-17.5) Hematocrit 42.0 % (39.0-53.0) Mean Corpuscular Volume 91 fL (79-100) Mean Corpuscular Hemoglobin 29 pg (25-35) Mean Corpuscular Hemoglobin Concent 32 g/dL (31-37) Red Cell Distribution Width 21.0 % (11.5-14.5) Platelet Count 313 x10^3/uL (140-400) Neutrophils (%) (Auto) 79 % (31-73) Lymphocytes (%) (Auto) 8 % (24-48) Monocytes (%) (Auto) 11 % (0-9) Eosinophils (%) (Auto) 1 % (0-3) Basophils (%) (Auto) 1 % (0-3) Neutrophils # (Auto) 6.7 x10^3uL (1.8-7.7) Lymphocytes # (Auto) 0.6 x10^3/uL (1.0-4.8) Monocytes # (Auto) 0.9 x10^3/uL (0.0-1.1) Eosinophils # (Auto) 0.1 x10^3/uL (0.0-0.7) Basophils # (Auto) 0.1 x10^3/uL (0.0-0.2) Platelet Estimate Adequate (ADEQUATE) Giant Platelets Occ Polychromasia Slight Anisocytosis Mod Target Cells Occ Sodium Level 137 mmol/L (136-145) Potassium Level 4.5 mmol/L (3.5-5.1) Chloride Level 104 mmol/L (98-107) Carbon Dioxide Level 25 mmol/L (21-32) Anion Gap 8 (6-14) Blood Urea Nitrogen 26 mg/dL (8-26) Creatinine 1.7 mg/dL (0.7-1.3) Estimated GFR (Cockcroft-Gault) 38.6 Glucose Level 114 mg/dL (70-99) Hemoglobin A1c 6.7 % (4.8-5.6) Calcium Level 9.0 mg/dL (8.5-10.1) Thyroid Stimulating Hormone (TSH) 89.322 uIU/mL (0.358-3.74) Free Thyroxine 0.71 ng/dL (0.76-1.46) Free Triiodothyronine (T3) pg/mL 0.97 pg/mL (2.18-3.98) Nasal Screen MRSA (PCR) Positive (Negative) Glucose (Fingerstick) 121 mg/dL (70-99) 139 mg/dL (70-99) Test 03/03/18 04:15 03/03/18 08:04 03/03/18 10:10 03/03/18 11:28 Sodium Level 137 mmol/L (136-145) Potassium Level 4.4 mmol/L (3.5-5.1) Chloride Level 105 mmol/L (98-107) Carbon Dioxide Level 28 mmol/L (21-32) Anion Gap 4 (6-14) Blood Urea Nitrogen 29 mg/dL (8-26) Creatinine 1.7 mg/dL (0.7-1.3) Estimated GFR (Cockcroft-Gault) 38.6 BUN/Creatinine Ratio 17 (6-20) Glucose Level 130 mg/dL (70-99) Calcium Level 8.5 mg/dL (8.5-10.1) Total Bilirubin 1.6 mg/dL (0.2-1.0) Aspartate Amino Transf (AST/SGOT) 18 U/L (15-37) Alanine Aminotransferase (ALT/SGPT) 12 U/L (16-63) Alkaline Phosphatase 135 U/L (46-116) Total Protein 7.1 g/dL (6.4-8.2) Albumin 2.6 g/dL (3.4-5.0) Albumin/Globulin Ratio 0.6 (1.0-1.7) Prostate Specific Antigen 0.64 ng/mL (0.00-4.00) Glucose (Fingerstick) 119 mg/dL (70-99) 155 mg/dL (70-99) Erythrocyte Sedimentation Rate 18 (0-15) Test 03/03/18 15:53 03/03/18 17:15 03/03/18 17:25 03/03/18 20:36 Glucose (Fingerstick) 131 mg/dL (70-99) 155 mg/dL (70-99) Lactic Acid Level 2.2 mmol/L (0.4-2.0) Urine Collection Type Unknown Urine Color Yellow Urine Clarity Clear Urine pH 5.0 Urine Specific [place] 1.015 Urine Protein Negative mg/dL (NEG-TRACE) Urine Glucose (UA) Negative mg/dL (NEG) Urine Ketones (Stick) Negative mg/dL (NEG) Urine Blood Negative (NEG) Urine Nitrite Negative (NEG) Urine Bilirubin Negative (NEG) Urine Urobilinogen Dipstick 1.0 mg/dL (0.2 mg/dL) Urine Leukocyte Esterase Small (NEG) Urine RBC Occ /HPF (0-2) Urine WBC 1-4 /HPF (0-4) Urine Squamous Epithelial Cells None /LPF Urine Bacteria 0 /HPF (0-FEW) Urine Hyaline Casts Moderate /HPF Urine Mucus Mod /LPF Test 03/03/18 21:20 03/04/18 06:10 03/04/18 06:40 03/04/18 08:14 Lactic Acid Level 1.4 mmol/L (0.4-2.0) 1.9 mmol/L (0.4-2.0) Sodium Level 135 mmol/L (136-145) Potassium Level 4.7 mmol/L (3.5-5.1) Chloride Level 104 mmol/L (98-107) Carbon Dioxide Level 24 mmol/L (21-32) Anion Gap 7 (6-14) Blood Urea Nitrogen 38 mg/dL (8-26) Creatinine 2.2 mg/dL (0.7-1.3) Estimated GFR (Cockcroft-Gault) 28.7 BUN/Creatinine Ratio 17 (6-20) Glucose Level 105 mg/dL (70-99) Calcium Level 8.4 mg/dL (8.5-10.1) Total Bilirubin 1.2 mg/dL (0.2-1.0) Aspartate Amino Transf (AST/SGOT) 19 U/L (15-37) Alanine Aminotransferase (ALT/SGPT) 12 U/L (16-63) Alkaline Phosphatase 126 U/L (46-116) Total Protein 7.2 g/dL (6.4-8.2) Albumin 2.5 g/dL (3.4-5.0) Albumin/Globulin Ratio 0.5 (1.0-1.7) Glucose (Fingerstick) 95 mg/dL (70-99) Laboratory Tests Test 03/03/18 15:53 03/03/18 17:15 03/03/18 17:25 03/03/18 20:36 Glucose (Fingerstick) 131 mg/dL (70-99) 155 mg/dL (70-99) Lactic Acid Level 2.2 mmol/L (0.4-2.0) Urine Collection Type Unknown Urine Color Yellow Urine Clarity Clear Urine pH 5.0 Urine Specific [place] 1.015 Urine Protein Negative mg/dL (NEG-TRACE) Urine Glucose (UA) Negative mg/dL (NEG) Urine Ketones (Stick) Negative mg/dL (NEG) Urine Blood Negative (NEG) Urine Nitrite Negative (NEG) Urine Bilirubin Negative (NEG) Urine Urobilinogen Dipstick 1.0 mg/dL (0.2 mg/dL) Urine Leukocyte Esterase Small (NEG) Urine RBC Occ /HPF (0-2) Urine WBC 1-4 /HPF (0-4) Urine Squamous Epithelial Cells None /LPF Urine Bacteria 0 /HPF (0-FEW) Urine Hyaline Casts Moderate /HPF Urine Mucus Mod /LPF Test 03/03/18 21:20 03/04/18 06:10 03/04/18 06:40 03/04/18 08:14 Lactic Acid Level 1.4 mmol/L (0.4-2.0) 1.9 mmol/L (0.4-2.0) Sodium Level 135 mmol/L (136-145) Potassium Level 4.7 mmol/L (3.5-5.1) Chloride Level 104 mmol/L (98-107) Carbon Dioxide Level 24 mmol/L (21-32) Anion Gap 7 (6-14) Blood Urea Nitrogen 38 mg/dL (8-26) Creatinine 2.2 mg/dL (0.7-1.3) Estimated GFR (Cockcroft-Gault) 28.7 BUN/Creatinine Ratio 17 (6-20) Glucose Level 105 mg/dL (70-99) Calcium Level 8.4 mg/dL (8.5-10.1) Total Bilirubin 1.2 mg/dL (0.2-1.0) Aspartate Amino Transf (AST/SGOT) 19 U/L (15-37) Alanine Aminotransferase (ALT/SGPT) 12 U/L (16-63) Alkaline Phosphatase 126 U/L (46-116) Total Protein 7.2 g/dL (6.4-8.2) Albumin 2.5 g/dL (3.4-5.0) Albumin/Globulin Ratio 0.5 (1.0-1.7) Glucose (Fingerstick) 95 mg/dL (70-99) Medications Current Medications Ondansetron HCl (Zofran) 4 mg PRN Q8HRS PRN IV NAUSEA/VOMITING; Start 03/02/18 at 17:30; Stop 03/03/18 at 17:29; Status DC Morphine Sulfate (Morphine Sulfate) 4 mg PRN Q2HR PRN IV PAIN Last administered on 03/03/18 13:04; Start 03/02/18 at 17:30; Stop 03/03/18 at 17:29 ; Status DC Acetaminophen (Tylenol) 650 mg PRN Q4HRS PRN PO FEVER; Start 03/02/18 at 17:30 ; Stop 03/03/18 at 15:52; Status DC Furosemide (Lasix) 60 mg 1X ONCE IVP Last administered on 03/02/18 23:02; Start 03/02/18 at 17:30; Stop 03/02/18 at 17:50; Status DC Acetaminophen (Tylenol) 325 mg PRN Q4HRS PRN PO MILD PAIN / TEMP Last administered on 03/04/18 08:33; Start 03/02/18 at 17:30 Albuterol Sulfate (Ventolin Neb Soln) 2.5 mg TID NEB Last administered on 10:57; Start 03/02/18 at 17:30 Amiodarone HCl (Cordarone) 200 mg BID PO Last administered on 03/03/18 21:46; Start 03/02/18 at 21:00 Aspirin (Ecotrin) 81 mg DAILY08 PO Last administered on 03/04/18 08:33; Start 03/02/18 at 18:30 Atorvastatin Calcium (Lipitor) 40 mg QHS PO Last administered on 03/03/18 21: 42; Start 03/02/18 at 21:00 Carvedilol (Coreg) 12.5 mg BIDWMEALS PO Last administered on 03/04/18 08:32; Start 03/02/18 at 18:30 Clopidogrel Bisulfate (Plavix) 75 mg DAILY07 PO Last administered on 03/04/18 06:34; Start 03/02/18 at 18:30 Cyanocobalamin (Vitamin B-12) 1,000 mcg DAILY PO Last administered on 08:32; Start 03/02/18 at 18:30 Diltiazem HCl (Cardizem 24hr Cd) 240 mg DAILYWLUN PO ; Start 03/03/18 at 12:00 Docusate Sodium (Colace) 100 mg DAILY PO Last administered on 03/04/18at 08:33; Start 03/02/18 at 18:30 Folic Acid (Folic Acid) 1 mg DAILY PO Last administered on 03/04/18at 08:33; Start 03/02/18 at 18:30 Glipizide (Glucotrol Er) 2.5 mg DAILY PO Last administered on 03/04/18at 08:32; Start 03/03/18 at 09:00 Potassium Chloride (Klor-Con) 10 meq DAILY PO Last administered on 03/04/18 08 :33; Start 03/02/18 at 18:30; Stop 03/04/18 at 10:51; Status DC Tamsulosin HCl (Flomax) 0.4 mg DAILY PO Last administered on 03/04/18at 08:32; Start 03/02/18 at 18:30 Fluocinonide (Lidex) 1 ayad PRN BID PRN TP IRRITATED AREAS; Start 03/02/18 at 21 :00 Levothyroxine Sodium (Synthroid) 150 mcg DAILY07 PO Last administered on at 06:34; Start 03/02/18 at 18:30 Metformin HCl (Glucophage) 1,000 mg BIDWMEALS PO Last administered on at 08:32; Start 03/03/18 at 08:00; Stop 03/04/18 at 10:51; Status DC Insulin Human Lispro (HumaLOG) 0-9 UNITS TIDWMEALS SQ ; Start 03/03/18 at 08:00 Dextrose (Dextrose 50%-Water Syringe) 12.5 gm PRN Q15MIN PRN IV SEE COMMENTS; Start 03/02/18 at 17:30 Furosemide (Lasix) 40 mg DAILY IVP Last administered on 03/04/18at 08:34; Start 03/03/18 at 09:00; Stop 03/04/18 at 10:51; Status DC Ampicillin Sodium/ Sulbactam Sodium 3 gm/Sodium Chloride 100 ml @ 200 mls/hr Q6HRS IV Last administered on 03/04/18at 06:34; Start 03/03/18 at 12:00 Sodium Chloride 500 ml @ 500 mls/hr 1X ONCE IV Last administered on at 13:54; Start 03/03/18 at 14:00; Stop 03/03/18 at 14:59; Status DC Sodium Chloride 500 ml @ 500 mls/hr 1X ONCE IV Last administered on at 18:15; Start 03/03/18 at 18:15; Stop 03/03/18 at 19:14; Status DC Linezolid (Zyvox) 600 mg BID PO Last administered on 03/04/18at 09:40; Start at 09:30 Lactobacillus Rhamnosus (Culturelle) 1 cap BID PO ; Start 03/04/18 at 11:00 Sodium Chloride 1,000 ml @ 75 mls/hr [id number] IV ; Start 03/04/18 at 11:00 Active Scripts Active Carvedilol 12.5 Mg Tablet 12.5 Mg PO BIDWMEALS Diltiazem 24HR Cd (Diltiazem Hcl) 240 Mg Cap.er.24h 240 Mg PO DAILYWLUN Amiodarone Hcl 200 Mg Tablet 200 Mg PO BID Vitamin B-12 (Cyanocobalamin (Vitamin B-12)) 1,000 Mcg Tablet 1,000 Mcg PO DAILY Reported Levothyroxine Sodium 150 Mcg Tablet 1 Tab PO DAILY Glipizide 5 Mg Tablet 2.5 Mg PO DAILY Tylenol (Acetaminophen) 325 Mg Tablet 1 Tab PO PRN Q4HRS Flomax (Tamsulosin Hcl) 0.4 Mg Cap.er.24h 1 Cap PO DAILY Potassium Chloride 10 Meq Capsule.er 10 Meq PO DAILY Lasix (Furosemide) 40 Mg Tablet 1 Tab PO DAILY Folic Acid 1 Mg Tablet 1 Tab PO DAILY Colace (Docusate Sodium) 100 Mg Capsule 1 Cap PO DAILY Clopidogrel (Clopidogrel Bisulfate) 75 Mg Tablet 1 Tab PO DAILY Betamethasone Dipropionate 15 Gm Cream..g. 1 Ayad TP BID Atorvastatin Calcium 40 Mg Tablet 1 Tab PO DAILY Aspir 81 (Aspirin) 81 Mg Tablet.dr 1 Tab PO DAILY [place] (Ciclesonide) 6.1 Gm Hfa.aer.ad 6.1 Gm IH Ventolin Hfa Inhaler (Albuterol Sulfate) 18 Gm Hfa.aer.ad 18 Gm IH Albuterol Sulfate Neb Soln (Albuterol Sulfate) 2.5 Mg/3 Ml Vial.neb 2.5 Mg IH TID PRN Metformin Hcl 1,000 Mg Tablet 1,000 Mg PO BID Vitals/I & O Vital Sign - Last 24 Hours 03/03/18 03/03/18 03/03/18 03/03/18 12:00 12:00 12:30 13:04 Temp 97.0 97.0 Pulse 59 99 Resp 18 B/P (MAP) 89/53 89/55 (66) 87/53 (64) Pulse Ox 95 O2 Delivery Room Air Room Air 03/03/18 03/03/18 03/03/18 03/03/18 13:11 13:34 13:40 13:46 B/P (MAP) 79/44 (56) 82/47 (59) O2 Delivery Room Air Room Air 03/03/18 03/03/18 03/03/18 03/03/18 15:00 16:00 17:00 19:00 Temp 98.7 97.4 98.7 97.4 Pulse 96 96 96 97 Resp 18 18 18 B/P (MAP) 72/39 (50) 85/40 (55) 85/40 83/42 (56) Pulse Ox 96 96 99 O2 Delivery Room Air Nasal Cannula O2 Flow Rate 2.0 03/03/18 03/03/18 03/03/18 03/03/18 19:24 20:00 21:46 23:00 Temp 97.4 97.4 Pulse 99 97 Resp 18 B/P (MAP) 85/61 82/61 (68) Pulse Ox 95 94 O2 Delivery Nasal Cannula Room Air Room Air O2 Flow Rate 2.0 03/04/18 03/04/18 03/04/18 03/04/18 03:00 07:00 07:01 07:10 Temp 97.6 97.7 97.6 97.7 Pulse 97 99 Resp 18 26 B/P (MAP) 102/66 (78) 111/79 (90) Pulse Ox 93 96 97 O2 Delivery Room Air Nasal Cannula Nasal Cannula Room Air O2 Flow Rate 2.0 2.0 03/04/18 03/04/18 03/04/18 08:32 08:34 10:58 Pulse 99 99 B/P (MAP) 111/79 111/79 O2 Delivery Nasal Cannula O2 Flow Rate 2.0 Intake and Output 03/03/18 03/03/18 03/04/18 15:00 23:00 07:00 Intake Total 480 ml 1050 ml 200 ml Output Total 650 ml 1200 ml 750 ml Balance -170 ml -150 ml -550 ml AMI YANCEY III DO Mar 04, 2018 11:40
[2018-03-04] MEDS: LACTOBACILLUS RHAMNOSUS GG 1 CAPSULE. PO SCH ×2 (12:46→21:35)
[2018-03-04] MEDS: IV NORMAL SALINE 1000ML BAG 1,000 ML IV SCH (12:46)
[2018-03-04 15:00] VITALS: BP 91/64
[2018-03-04] MEDS ORDERED: IV NORMAL SALINE 500ML BAG 500 ML IV ONE (15:00)
--- NOTE | 2018-03-04 16:53 | RAD ---
Renal ultrasound 03/04/2018 INDICATION: Acute kidney injury COMPARISON STUDY: None Discussion: The right kidney is partially visualized measuring 12.8 x 4.7 x 4.7 cm. No evidence of hydronephrosis or obstructive uropathy is seen. No focal renal lesion is identified on prior imaging. No evidence of nephrolithiasis is seen. Left kidney is not visualized. The bladder is also not visualized. Correlate with Flores catheter placement/decompressed state. IMPRESSION: Unremarkable sonographic appearance of the right kidney. Left kidney is not visualized. Electronically signed by: Rupert Esparza MD (03/04/2018 4:49 PM) [id number]
[2018-03-04 19:55] VITALS: BP 88/64
[2018-03-04] MEDS: ATORVASTATIN CALCIUM 40 MG TABLET. PO SCH (21:34)
[2018-03-04 23:00] VITALS: BP 114/82
[2018-03-05] MEDS: IV NORMAL SALINE 1000ML BAG 1,000 ML IV SCH ×2 (00:03→12:13)
[2018-03-05] MEDS: AMPICILLIN/SULBACTAM 3 GM in IV NORMAL SALINE 100ML 100 ML IV SCH ×5 (00:03→23:55)
[2018-03-05 03:00] VITALS: BP 103/62
[2018-03-05 04:21] LABS: HEMATOCRIT 38.1 % (39.0-53.0); HEMOGLOBIN 12.4 g/dL (13.0-17.5); RED BLOOD COUNT 4.19 x10^6/uL (4.30-5.70); RED CELL DISTRIBUTION WIDTH 21.2 % (11.5-14.5); WHITE BLOOD COUNT 6.4 x10^3/uL (4.0-11.0)
[2018-03-05 04:41] LABS: CALCIUM 8.1 mg/dL (8.5-10.1); CREATININE 2.2 mg/dL (0.7-1.3); GFR 28.7; POTASSIUM 4.4 mmol/L (3.5-5.1)
[2018-03-05] MEDS: CLOPIDOGREL BISULFATE 75 MG TABLET PO SCH (06:01)
[2018-03-05] MEDS: LEVOTHYROXINE 150 MCG TABLET PO SCH (06:01)
[2018-03-05] MEDS: ALBUTEROL SULFATE 2.5 MG/3 ML NEBU. NEB SCH ×3 (07:24→19:24)
[2018-03-05] MEDS: INSULIN LISPRO 300 UNITS/3 ML INSULN.PEN. SQ SCH ×3 (08:00→17:00)
[2018-03-05] MEDS: AMIODARONE HCL 200 MG TABLET. PO SCH ×2 (09:00→20:46)
[2018-03-05] MEDS: glipiZIDE ER 2.5 MG TAB.ER.24 PO SCH (09:00)
[2018-03-05] MEDS: LACTOBACILLUS RHAMNOSUS GG 1 CAPSULE. PO SCH ×2 (09:13→20:44)
[2018-03-05] MEDS: ASPIRIN ENTERIC COATED 81 MG TABLET.DR. PO SCH (09:13)
[2018-03-05] MEDS: CYANOCOBALAMIN (VITAMIN B-12) 1,000 MCG TABLET. PO SCH (09:13)
[2018-03-05] MEDS: FOLIC ACID 1 MG TABLET. PO SCH (09:14)
[2018-03-05] MEDS: TAMSULOSIN 0.4 MG CAP.ER.24H. PO SCH (09:14)
[2018-03-05] MEDS: DOCUSATE SODIUM 100 MG CAPSULE. PO SCH (09:14)
[2018-03-05] MEDS: CARVEDILOL 12.5 MG TABLET. PO SCH ×2 (09:16→17:20)
[2018-03-05] MEDS: LINEZOLID 600 MG TABLET PO SCH ×2 (09:16→20:45)
[2018-03-05 11:00] VITALS: BP 95/62
--- NOTE | 2018-03-05 12:33 | PDOC ---
PROGRESS NOTES Subjective Subjective SEEN IN FOLLOW UP OF CKD4 Objective Objective Vital Signs Date Time Temp Pulse Resp B/P (MAP) Pulse Ox O2 Delivery O2 Flow Rate FiO2 03/05/18 12:00 98 95/62 03/05/18 11:00 97.5 16 94 Room Air 97.5 03/05/18 07:24 2.0 Intake and Output 03/05/18 07:00 Intake Total 4418 ml Output Total 1250 ml Balance 3168 ml Intake Oral 1580 ml IV Total 2838 ml Output Urine Total 1250 ml Physical Exam Abdomen: Normal bowel sounds, Soft, No tenderness, No hepatosplenomegaly, No masses Heart: Regular rate, Normal S1, Normal S2, No murmurs, Gallops Extremities: Other (BLE EDEMA) General: Alert, Oriented X3, Cooperative, No acute distress Lungs: Clear to auscultation, Normal air movement Psych/Mental Status: Mental status NL, Mood NL Diagnosis RENAL FAILURE: Chronic ( DUE TO HTN) Plan Plan of Care CONT TREATMENT OF CELLULITIS. FLUID BALANCE AND BP CONTROL Comment Review of Relevant I have reviewed the following items kelsey (where applicable) has been applied. Labs Laboratory Tests Test 03/03/18 15:53 03/03/18 17:15 03/03/18 17:25 03/03/18 20:36 Glucose (Fingerstick) 131 mg/dL (70-99) 155 mg/dL (70-99) Lactic Acid Level 2.2 mmol/L (0.4-2.0) Urine Collection Type Unknown Urine Color Yellow Urine Clarity Clear Urine pH 5.0 Urine Specific [place] 1.015 Urine Protein Negative mg/dL (NEG-TRACE) Urine Glucose (UA) Negative mg/dL (NEG) Urine Ketones (Stick) Negative mg/dL (NEG) Urine Blood Negative (NEG) Urine Nitrite Negative (NEG) Urine Bilirubin Negative (NEG) Urine Urobilinogen Dipstick 1.0 mg/dL (0.2 mg/dL) Urine Leukocyte Esterase Small (NEG) Urine RBC Occ /HPF (0-2) Urine WBC 1-4 /HPF (0-4) Urine Squamous Epithelial Cells None /LPF Urine Bacteria 0 /HPF (0-FEW) Urine Hyaline Casts Moderate /HPF Urine Mucus Mod /LPF Test 03/03/18 21:20 03/04/18 06:10 03/04/18 06:40 03/04/18 08:14 Lactic Acid Level 1.4 mmol/L (0.4-2.0) 1.9 mmol/L (0.4-2.0) Sodium Level 135 mmol/L (136-145) Potassium Level 4.7 mmol/L (3.5-5.1) Chloride Level 104 mmol/L (98-107) Carbon Dioxide Level 24 mmol/L (21-32) Anion Gap 7 (6-14) Blood Urea Nitrogen 38 mg/dL (8-26) Creatinine 2.2 mg/dL (0.7-1.3) Estimated GFR (Cockcroft-Gault) 28.7 BUN/Creatinine Ratio 17 (6-20) Glucose Level 105 mg/dL (70-99) Calcium Level 8.4 mg/dL (8.5-10.1) Total Bilirubin 1.2 mg/dL (0.2-1.0) Aspartate Amino Transf (AST/SGOT) 19 U/L (15-37) Alanine Aminotransferase (ALT/SGPT) 12 U/L (16-63) Alkaline Phosphatase 126 U/L (46-116) Total Protein 7.2 g/dL (6.4-8.2) Albumin 2.5 g/dL (3.4-5.0) Albumin/Globulin Ratio 0.5 (1.0-1.7) Glucose (Fingerstick) 95 mg/dL (70-99) Test 03/04/18 11:16 03/04/18 14:04 03/04/18 16:30 03/04/18 21:30 Glucose (Fingerstick) 139 mg/dL (70-99) 87 mg/dL (70-99) 81 mg/dL (70-99) 89 mg/dL (70-99) Test 03/05/18 04:00 03/05/18 07:48 03/05/18 09:25 03/05/18 11:47 White Blood Count 6.4 x10^3/uL (4.0-11.0) Red Blood Count 4.19 x10^6/uL (4.30-5.70) Hemoglobin 12.4 g/dL (13.0-17.5) Hematocrit 38.1 % (39.0-53.0) Mean Corpuscular Volume 91 fL (79-100) Mean Corpuscular Hemoglobin 30 pg (25-35) Mean Corpuscular Hemoglobin Concent 33 g/dL (31-37) Red Cell Distribution Width 21.2 % (11.5-14.5) Platelet Count 255 x10^3/uL (140-400) Sodium Level 138 mmol/L (136-145) Potassium Level 4.4 mmol/L (3.5-5.1) Chloride Level 106 mmol/L (98-107) Carbon Dioxide Level 24 mmol/L (21-32) Anion Gap 8 (6-14) Blood Urea Nitrogen 41 mg/dL (8-26) Creatinine 2.2 mg/dL (0.7-1.3) Estimated GFR (Cockcroft-Gault) 28.7 Glucose Level 77 mg/dL (70-99) Calcium Level 8.1 mg/dL (8.5-10.1) Glucose (Fingerstick) 64 mg/dL (70-99) 100 mg/dL (70-99) 74 mg/dL (70-99) Laboratory Tests Test 03/04/18 14:04 03/04/18 16:30 03/04/18 21:30 03/05/18 04:00 Glucose (Fingerstick) 87 mg/dL (70-99) 81 mg/dL (70-99) 89 mg/dL (70-99) White Blood Count 6.4 x10^3/uL (4.0-11.0) Red Blood Count 4.19 x10^6/uL (4.30-5.70) Hemoglobin 12.4 g/dL (13.0-17.5) Hematocrit 38.1 % (39.0-53.0) Mean Corpuscular Volume 91 fL (79-100) Mean Corpuscular Hemoglobin 30 pg (25-35) Mean Corpuscular Hemoglobin Concent 33 g/dL (31-37) Red Cell Distribution Width 21.2 % (11.5-14.5) Platelet Count 255 x10^3/uL (140-400) Sodium Level 138 mmol/L (136-145) Potassium Level 4.4 mmol/L (3.5-5.1) Chloride Level 106 mmol/L (98-107) Carbon Dioxide Level 24 mmol/L (21-32) Anion Gap 8 (6-14) Blood Urea Nitrogen 41 mg/dL (8-26) Creatinine 2.2 mg/dL (0.7-1.3) Estimated GFR (Cockcroft-Gault) 28.7 Glucose Level 77 mg/dL (70-99) Calcium Level 8.1 mg/dL (8.5-10.1) Test 03/05/18 07:48 03/05/18 09:25 03/05/18 11:47 Glucose (Fingerstick) 64 mg/dL (70-99) 100 mg/dL (70-99) 74 mg/dL (70-99) Microbiology 03/03/18 Urine Culture - Final, Complete 03/03/18 Urine Culture Result 1 (ABHIJIT) - Final, Complete Medications Current Medications Ondansetron HCl (Zofran) 4 mg PRN Q8HRS PRN IV NAUSEA/VOMITING; Start 03/02/18 at 17:30; Stop 03/03/18 at 17:29; Status DC Morphine Sulfate (Morphine Sulfate) 4 mg PRN Q2HR PRN IV PAIN Last administered on 03/03/18at 13:04; Start 03/02/18 at 17:30; Stop 03/03/18 at 17:29 ; Status DC Acetaminophen (Tylenol) 650 mg PRN Q4HRS PRN PO FEVER; Start 03/02/18 at 17:30 ; Stop 03/03/18 at 15:52; Status DC Furosemide (Lasix) 60 mg 1X ONCE IVP Last administered on 03/02/18at 23:02; Start 03/02/18 at 17:30; Stop 03/02/18 at 17:50; Status DC Acetaminophen (Tylenol) 325 mg PRN Q4HRS PRN PO MILD PAIN / TEMP Last administered on 03/04/18at 08:33; Start 03/02/18 at 17:30 Albuterol Sulfate (Ventolin Neb Soln) 2.5 mg TID NEB Last administered on at 07:24; Start 03/02/18 at 17:30 Amiodarone HCl (Cordarone) 200 mg BID PO Last administered on 03/03/18at 21:46; Start 03/02/18 at 21:00 Aspirin (Ecotrin) 81 mg DAILY08 PO Last administered on 03/05/18at 09:13; Start 03/02/18 at 18:30 Atorvastatin Calcium (Lipitor) 40 mg QHS PO Last administered on 03/04/18at 21: 34; Start 03/02/18 at 21:00 Carvedilol (Coreg) 12.5 mg BIDWMEALS PO Last administered on 03/05/18 09:16; Start 03/02/18 at 18:30 Clopidogrel Bisulfate (Plavix) 75 mg DAILY07 PO Last administered on 03/05/18 06:01; Start 03/02/18 at 18:30 Cyanocobalamin (Vitamin B-12) 1,000 mcg DAILY PO Last administered on 09:13; Start 03/02/18 at 18:30 Diltiazem HCl (Cardizem 24hr Cd) 240 mg DAILYWLUN PO ; Start 03/03/18 at 12:00 Docusate Sodium (Colace) 100 mg DAILY PO Last administered on 03/05/18 09:14; Start 03/02/18 at 18:30 Folic Acid (Folic Acid) 1 mg DAILY PO Last administered on 03/05/18 09:14; Start 03/02/18 at 18:30 Glipizide (Glucotrol Er) 2.5 mg DAILY PO Last administered on 03/04/18 08:32; Start 03/03/18 at 09:00 Potassium Chloride (Klor-Con) 10 meq DAILY PO Last administered on 03/04/18at 08 :33; Start 03/02/18 at 18:30; Stop 03/04/18 at 10:51; Status DC Tamsulosin HCl (Flomax) 0.4 mg DAILY PO Last administered on 03/05/18 09:14; Start 03/02/18 at 18:30 Fluocinonide (Lidex) 1 ayad PRN BID PRN TP IRRITATED AREAS; Start 03/02/18 at 21 :00 Levothyroxine Sodium (Synthroid) 150 mcg DAILY07 PO Last administered on 06:01; Start 03/02/18 at 18:30 Metformin HCl (Glucophage) 1,000 mg BIDWMEALS PO Last administered on at 08:32; Start 03/03/18 at 08:00; Stop 03/04/18 at 10:51; Status DC Insulin Human Lispro (HumaLOG) 0-9 UNITS TIDWMEALS SQ ; Start 03/03/18 at 08:00 Dextrose (Dextrose 50%-Water Syringe) 12.5 gm PRN Q15MIN PRN IV SEE COMMENTS; Start 03/02/18 at 17:30 Furosemide (Lasix) 40 mg DAILY IVP Last administered on 03/04/18at 08:34; Start 03/03/18 at 09:00; Stop 03/04/18 at 10:51; Status DC Ampicillin Sodium/ Sulbactam Sodium 3 gm/Sodium Chloride 100 ml @ 200 mls/hr Q6HRS IV Last administered on 03/05/18at 12:07; Start 03/03/18 at 12:00 Sodium Chloride 500 ml @ 500 mls/hr 1X ONCE IV Last administered on at 13:54; Start 03/03/18 at 14:00; Stop 03/03/18 at 14:59; Status DC Sodium Chloride 500 ml @ 500 mls/hr 1X ONCE IV Last administered on at 18:15; Start 03/03/18 at 18:15; Stop 03/03/18 at 19:14; Status DC Linezolid (Zyvox) 600 mg BID PO Last administered on 03/05/18at 09:16; Start at 09:30 Lactobacillus Rhamnosus (Culturelle) 1 cap BID PO Last administered on at 09:13; Start 03/04/18 at 11:00 Sodium Chloride 1,000 ml @ 75 mls/hr [id number] IV Last administered on at 12:13; Start 03/04/18 at 11:00 Sodium Chloride 500 ml @ 500 mls/hr 1X ONCE IV Last administered on at 15:12; Start 03/04/18 at 15:00; Stop 03/04/18 at 15:59; Status DC Active Scripts Active Carvedilol 12.5 Mg Tablet 12.5 Mg PO BIDWMEALS Diltiazem 24HR Cd (Diltiazem Hcl) 240 Mg Cap.er.24h 240 Mg PO DAILYWLUN Amiodarone Hcl 200 Mg Tablet 200 Mg PO BID Vitamin B-12 (Cyanocobalamin (Vitamin B-12)) 1,000 Mcg Tablet 1,000 Mcg PO DAILY Reported Levothyroxine Sodium 150 Mcg Tablet 1 Tab PO DAILY Glipizide 5 Mg Tablet 2.5 Mg PO DAILY Tylenol (Acetaminophen) 325 Mg Tablet 1 Tab PO PRN Q4HRS Flomax (Tamsulosin Hcl) 0.4 Mg Cap.er.24h 1 Cap PO DAILY Potassium Chloride 10 Meq Capsule.er 10 Meq PO DAILY Lasix (Furosemide) 40 Mg Tablet 1 Tab PO DAILY Folic Acid 1 Mg Tablet 1 Tab PO DAILY Colace (Docusate Sodium) 100 Mg Capsule 1 Cap PO DAILY Clopidogrel (Clopidogrel Bisulfate) 75 Mg Tablet 1 Tab PO DAILY Betamethasone Dipropionate 15 Gm Cream..g. 1 Ayad TP BID Atorvastatin Calcium 40 Mg Tablet 1 Tab PO DAILY Aspir 81 (Aspirin) 81 Mg Tablet.dr 1 Tab PO DAILY Alvesco (Ciclesonide) 6.1 Gm Hfa.aer.ad 6.1 Gm IH Ventolin Hfa Inhaler (Albuterol Sulfate) 18 Gm Hfa.aer.ad 18 Gm IH Albuterol Sulfate Neb Soln (Albuterol Sulfate) 2.5 Mg/3 Ml Vial.neb 2.5 Mg IH TID PRN Metformin Hcl 1,000 Mg Tablet 1,000 Mg PO BID Vitals/I & O Vital Sign - Last 24 Hours 03/04/18 03/04/18 03/04/18 03/04/18 15:00 17:00 19:43 19:55 Temp 97.0 95.9 97.0 95.9 Pulse 94 94 98 Resp 24 B/P (MAP) 91/64 (73) 91/64 88/64 (72) Pulse Ox 97 99 O2 Delivery Nasal Cannula Room Air Nasal Cannula O2 Flow Rate 2.0 2.0 03/04/18 03/04/18 03/04/18 03/05/18 20:03 21:34 23:00 03:00 Temp 95.2 94.6 95.2 94.6 Pulse 98 96 98 Resp 22 B/P (MAP) 88/64 114/82 (93) 103/62 (76) Pulse Ox 97 99 O2 Delivery Nasal Cannula Nasal Cannula Nasal Cannula O2 Flow Rate 2.0 2.0 2.0 03/05/18 03/05/18 03/05/18 03/05/18 04:42 06:05 06:41 07:24 Temp 96.8 95.5 95.7 96.8 95.5 95.7 Pulse Ox 99 O2 Delivery Nasal Cannula O2 Flow Rate 2.0 03/05/18 03/05/18 03/05/18 03/05/18 09:00 09:16 11:00 12:00 Temp 97.5 97.5 Pulse 67 98 Resp 16 B/P (MAP) 112/66 112/66 95/62 (73) 95/62 Pulse Ox 94 O2 Delivery Room Air Intake and Output 03/04/18 03/04/18 03/05/18 15:00 23:00 07:00 Intake Total 120 ml 1460 ml 2838 ml Output Total 1150 ml 100 ml Balance 120 ml 310 ml 2738 ml SERAFIN REES MD Mar 05, 2018 12:33
--- NOTE | 2018-03-05 14:45 | PDOC ---
Infectious Disease Note Subjective Subjective Diminished appetite + BM No F/C/S/N/V/D ROS ROS per HPI otherwise negative Vital Sign Vital Signs Vital Signs Date Time Temp Pulse Resp B/P (MAP) Pulse Ox O2 Delivery O2 Flow Rate FiO2 03/05/18 13:35 Nasal Cannula 2.0 03/05/18 12:00 98 95/62 03/05/18 11:00 97.5 16 94 97.5 Physical Exam PHYSICAL EXAM GENERAL: Propped up in bed, alert, calm, restraints LUNGS: Clear. HEART: S1, S2 regular. ABDOMEN: Obese, soft, NT : Scrotal swelling. There is no erythema or wound. Flores in place EXTREMITIES: BLE bandaged NEUROLOGIC: Alert and oriented PIV Labs Lab Laboratory Tests Test 03/04/18 16:30 03/04/18 21:30 03/05/18 04:00 03/05/18 07:48 Glucose (Fingerstick) 81 mg/dL (70-99) 89 mg/dL (70-99) 64 mg/dL (70-99) White Blood Count 6.4 x10^3/uL (4.0-11.0) Red Blood Count 4.19 x10^6/uL (4.30-5.70) Hemoglobin 12.4 g/dL (13.0-17.5) Hematocrit 38.1 % (39.0-53.0) Mean Corpuscular Volume 91 fL (79-100) Mean Corpuscular Hemoglobin 30 pg (25-35) Mean Corpuscular Hemoglobin Concent 33 g/dL (31-37) Red Cell Distribution Width 21.2 % (11.5-14.5) Platelet Count 255 x10^3/uL (140-400) Sodium Level 138 mmol/L (136-145) Potassium Level 4.4 mmol/L (3.5-5.1) Chloride Level 106 mmol/L (98-107) Carbon Dioxide Level 24 mmol/L (21-32) Anion Gap 8 (6-14) Blood Urea Nitrogen 41 mg/dL (8-26) Creatinine 2.2 mg/dL (0.7-1.3) Estimated GFR (Cockcroft-Gault) 28.7 Glucose Level 77 mg/dL (70-99) Calcium Level 8.1 mg/dL (8.5-10.1) Test 03/05/18 09:25 03/05/18 11:47 Glucose (Fingerstick) 100 mg/dL (70-99) 74 mg/dL (70-99) Micro Microbiology 03/03/18 Urine Culture - Final, Complete 03/03/18 Urine Culture Result 1 (ABHIJIT) - Final, Complete Objective Assessment Scrotal edema , do not believe has Willian gangrene Lower ext chronic stasis dermatitis BPH CHF Pacemaker HTN Renal insufficiency Plan Plan of Care Zyvox and Unasyn - po soon leg elevation scrotal support and elevation D/w RN Patient seen and examined. Chart reviewed in detail. Case discussed with BIOINFORMATICIST. Agree with above plan. HELADIO MELGOZA APRN Mar 05, 2018 14:45 GREER GROSS MD Mar 05, 2018 19:40
[2018-03-05 15:00] VITALS: BP 120/69
[2018-03-05] MEDS ORDERED: HYDROcodone/APAP 5/325MG 1 TAB TABLET PO PRN (19:15)
[2018-03-05 19:20] VITALS: BP 106/59
[2018-03-05] MEDS: traMADol 50 MG TABLET PO PRN (20:45)
[2018-03-05] MEDS: ATORVASTATIN CALCIUM 40 MG TABLET. PO SCH (20:45)
[2018-03-05 22:42] VITALS: BP 90/66
[2018-03-06 03:00] VITALS: BP 140/68
[2018-03-06] MEDS: IV NORMAL SALINE 1000ML BAG 1,000 ML IV SCH (04:20)
[2018-03-06] MEDS: AMPICILLIN/SULBACTAM 3 GM in IV NORMAL SALINE 100ML 100 ML IV SCH ×4 (05:56→23:53)
[2018-03-06] MEDS: CLOPIDOGREL BISULFATE 75 MG TABLET PO SCH (06:17)
[2018-03-06] MEDS: LEVOTHYROXINE 150 MCG TABLET PO SCH (06:17)
[2018-03-06 07:00] VITALS: BP 116/79
[2018-03-06] MEDS: ALBUTEROL SULFATE 2.5 MG/3 ML NEBU. NEB SCH ×3 (07:12→19:42)
[2018-03-06] MEDS: INSULIN LISPRO 300 UNITS/3 ML INSULN.PEN. SQ SCH ×3 (08:00→17:00)
[2018-03-06] MEDS: CARVEDILOL 12.5 MG TABLET. PO SCH (08:00)
[2018-03-06] MEDS: AMIODARONE HCL 200 MG TABLET. PO SCH ×2 (09:00→21:00)
[2018-03-06] MEDS: glipiZIDE ER 2.5 MG TAB.ER.24 PO SCH (09:00)
[2018-03-06] MEDS: traMADol 50 MG TABLET PO PRN ×2 (09:09→19:51)
[2018-03-06] MEDS: FOLIC ACID 1 MG TABLET. PO SCH (09:09)
[2018-03-06] MEDS: DOCUSATE SODIUM 100 MG CAPSULE. PO SCH (09:10)
[2018-03-06] MEDS: TAMSULOSIN 0.4 MG CAP.ER.24H. PO SCH (09:10)
[2018-03-06] MEDS: LINEZOLID 600 MG TABLET PO SCH ×2 (09:10→21:00)
[2018-03-06] MEDS: LACTOBACILLUS RHAMNOSUS GG 1 CAPSULE. PO SCH ×2 (09:11→21:00)
[2018-03-06] MEDS: CYANOCOBALAMIN (VITAMIN B-12) 1,000 MCG TABLET. PO SCH (09:11)
[2018-03-06] MEDS: ASPIRIN ENTERIC COATED 81 MG TABLET.DR. PO SCH (09:12)
--- NOTE | 2018-03-06 09:33 | PDOC ---
PROGRESS NOTES Chief Complaint Chief Complaint Urinary retention, status post successful placement of Flores catheter by urology , 03/02/18 Ascites History BPH on Flomax Bilateral lower extremity edema, some oozing HTN, afib , indwelling pacer - all chronic stable Scrotal edema , do not believe has Willian gangrene Lower ext chronic stasis dermatitis CHF Pacemaker Renal insufficiency MRSA colonization Amiodarone therapy History of Present Illness History of Present Illness had scrotum pinched in toilette seat yesterday causing severe pain and near syncope applying ice and elevate scrotum scrotal edema , given lasix and started spironolactone Flores catheter appears to have adequate drainage on IV antibiotics , plans for po soon noted Vitals Vitals Vital Signs Date Time Temp Pulse Resp B/P (MAP) Pulse Ox O2 Delivery O2 Flow Rate FiO2 03/06/18 09:09 96 Room Air 03/06/18 09:00 96 116/79 03/06/18 07:00 97.9 18 97.9 03/05/18 19:45 2.0 Physical Exam Physical Exam GENERAL: Propped up in bed, alert, calm, restraints LUNGS: Clear. HEART: S1, S2 regular. ABDOMEN: Obese, soft, NT : Scrotal swelling. There is no erythema or wound. Flores in place EXTREMITIES: BLE bandaged NEUROLOGIC: Alert and oriented PIV General: Alert, Oriented X3, Cooperative, No acute distress Heart: Regular rate, Normal S1, Normal S2, No murmurs, Gallops Lungs: Clear Abdomen: Normal bowel sounds, Soft, No tenderness, No hepatosplenomegaly, No masses Extremities: Other (BLE EDEMA) Skin: No rashes, Other (BILATERAL LE ERYTHEMA AND STASIS DISCOLORATIONI) Labs LABS Laboratory Tests Test 03/05/18 11:47 03/05/18 16:45 03/05/18 20:43 03/06/18 08:06 Glucose (Fingerstick) 74 mg/dL (70-99) 78 mg/dL (70-99) 173 mg/dL (70-99) 80 mg/dL (70-99) Comment Review of Relevant I have reviewed the following items kelsey (where applicable) has been applied. Labs Laboratory Tests Test 03/04/18 11:16 03/04/18 14:04 03/04/18 16:30 03/04/18 21:30 Glucose (Fingerstick) 139 mg/dL (70-99) 87 mg/dL (70-99) 81 mg/dL (70-99) 89 mg/dL (70-99) Test 03/05/18 04:00 03/05/18 07:48 03/05/18 09:25 03/05/18 11:47 White Blood Count 6.4 x10^3/uL (4.0-11.0) Red Blood Count 4.19 x10^6/uL (4.30-5.70) Hemoglobin 12.4 g/dL (13.0-17.5) Hematocrit 38.1 % (39.0-53.0) Mean Corpuscular Volume 91 fL (79-100) Mean Corpuscular Hemoglobin 30 pg (25-35) Mean Corpuscular Hemoglobin Concent 33 g/dL (31-37) Red Cell Distribution Width 21.2 % (11.5-14.5) Platelet Count 255 x10^3/uL (140-400) Sodium Level 138 mmol/L (136-145) Potassium Level 4.4 mmol/L (3.5-5.1) Chloride Level 106 mmol/L (98-107) Carbon Dioxide Level 24 mmol/L (21-32) Anion Gap 8 (6-14) Blood Urea Nitrogen 41 mg/dL (8-26) Creatinine 2.2 mg/dL (0.7-1.3) Estimated GFR (Cockcroft-Gault) 28.7 Glucose Level 77 mg/dL (70-99) Calcium Level 8.1 mg/dL (8.5-10.1) Glucose (Fingerstick) 64 mg/dL (70-99) 100 mg/dL (70-99) 74 mg/dL (70-99) Test 03/05/18 16:45 03/05/18 20:43 03/06/18 08:06 Glucose (Fingerstick) 78 mg/dL (70-99) 173 mg/dL (70-99) 80 mg/dL (70-99) Laboratory Tests Test 03/05/18 11:47 03/05/18 16:45 03/05/18 20:43 03/06/18 08:06 Glucose (Fingerstick) 74 mg/dL (70-99) 78 mg/dL (70-99) 173 mg/dL (70-99) 80 mg/dL (70-99) Microbiology 03/03/18 Urine Culture - Final, Complete 03/03/18 Urine Culture Result 1 (ABHIJIT) - Final, Complete Medications Current Medications Ondansetron HCl (Zofran) 4 mg PRN Q8HRS PRN IV NAUSEA/VOMITING; Start 03/02/18 at 17:30; Stop 03/03/18 at 17:29; Status DC Morphine Sulfate (Morphine Sulfate) 4 mg PRN Q2HR PRN IV PAIN Last administered on 03/03/18at 13:04; Start 03/02/18 at 17:30; Stop 03/03/18 at 17:29 ; Status DC Acetaminophen (Tylenol) 650 mg PRN Q4HRS PRN PO FEVER; Start 03/02/18 at 17:30 ; Stop 03/03/18 at 15:52; Status DC Furosemide (Lasix) 60 mg 1X ONCE IVP Last administered on 03/02/18 23:02; Start 03/02/18 at 17:30; Stop 03/02/18 at 17:50; Status DC Acetaminophen (Tylenol) 325 mg PRN Q4HRS PRN PO MILD PAIN / TEMP Last administered on 03/04/18at 08:33; Start 03/02/18 at 17:30 Albuterol Sulfate (Ventolin Neb Soln) 2.5 mg TID NEB Last administered on at 07:12; Start 03/02/18 at 17:30 Amiodarone HCl (Cordarone) 200 mg BID PO Last administered on 03/05/18at 20:46; Start 03/02/18 at 21:00 Aspirin (Ecotrin) 81 mg DAILY08 PO Last administered on 03/06/18at 09:12; Start 03/02/18 at 18:30 Atorvastatin Calcium (Lipitor) 40 mg QHS PO Last administered on 03/05/18 20: 45; Start 03/02/18 at 21:00 Carvedilol (Coreg) 12.5 mg BIDWMEALS PO Last administered on 03/05/18 17:20; Start 03/02/18 at 18:30 Clopidogrel Bisulfate (Plavix) 75 mg DAILY07 PO Last administered on 03/06/18at 06:17; Start 03/02/18 at 18:30 Cyanocobalamin (Vitamin B-12) 1,000 mcg DAILY PO Last administered on at 09:11; Start 03/02/18 at 18:30 Diltiazem HCl (Cardizem 24hr Cd) 240 mg DAILYWLUN PO ; Start 03/03/18 at 12:00 Docusate Sodium (Colace) 100 mg DAILY PO Last administered on 03/06/18at 09:10; Start 03/02/18 at 18:30 Folic Acid (Folic Acid) 1 mg DAILY PO Last administered on 03/06/18at 09:09; Start 03/02/18 at 18:30 Glipizide (Glucotrol Er) 2.5 mg DAILY PO Last administered on 03/04/18at 08:32; Start 03/03/18 at 09:00 Potassium Chloride (Klor-Con) 10 meq DAILY PO Last administered on 03/04/18at 08 :33; Start 03/02/18 at 18:30; Stop 03/04/18 at 10:51; Status DC Tamsulosin HCl (Flomax) 0.4 mg DAILY PO Last administered on 03/06/18at 09:10; Start 03/02/18 at 18:30 Fluocinonide (Lidex) 1 ayad PRN BID PRN TP IRRITATED AREAS; Start 03/02/18 at 21 :00 Levothyroxine Sodium (Synthroid) 150 mcg DAILY07 PO Last administered on at 06:17; Start 03/02/18 at 18:30 Metformin HCl (Glucophage) 1,000 mg BIDWMEALS PO Last administered on at 08:32; Start 03/03/18 at 08:00; Stop 03/04/18 at 10:51; Status DC Insulin Human Lispro (HumaLOG) 0-9 UNITS TIDWMEALS SQ ; Start 03/03/18 at 08:00 Dextrose (Dextrose 50%-Water Syringe) 12.5 gm PRN Q15MIN PRN IV SEE COMMENTS; Start 03/02/18 at 17:30 Furosemide (Lasix) 40 mg DAILY IVP Last administered on 03/04/18at 08:34; Start 03/03/18 at 09:00; Stop 03/04/18 at 10:51; Status DC Ampicillin Sodium/ Sulbactam Sodium 3 gm/Sodium Chloride 100 ml @ 200 mls/hr Q6HRS IV Last administered on 03/06/18at 05:56; Start 03/03/18 at 12:00 Sodium Chloride 500 ml @ 500 mls/hr 1X ONCE IV Last administered on at 13:54; Start 03/03/18 at 14:00; Stop 03/03/18 at 14:59; Status DC Sodium Chloride 500 ml @ 500 mls/hr 1X ONCE IV Last administered on at 18:15; Start 03/03/18 at 18:15; Stop 03/03/18 at 19:14; Status DC Linezolid (Zyvox) 600 mg BID PO Last administered on 03/06/18at 09:10; Start at 09:30 Lactobacillus Rhamnosus (Culturelle) 1 cap BID PO Last administered on at 09:11; Start 03/04/18 at 11:00 Sodium Chloride 1,000 ml @ 75 mls/hr [id number] IV Last administered on at 04:20; Start 03/04/18 at 11:00 Sodium Chloride 500 ml @ 500 mls/hr 1X ONCE IV Last administered on at 15:12; Start 03/04/18 at 15:00; Stop 03/04/18 at 15:59; Status DC Tramadol HCl (Ultram) 50 mg PRN Q8HRS PRN PO MODERATE PAIN Last administered on 03/06/18at 09:09; Start 03/05/18 at 19:15 Acetaminophen/ Hydrocodone Bitart (Lortab 5/325) 1 tab PRN Q4HRS PRN PO SEVERE PAIN; Start 03/05/18 at 19:15 Active Scripts Active Carvedilol 12.5 Mg Tablet 12.5 Mg PO BIDWMEALS Diltiazem 24HR Cd (Diltiazem Hcl) 240 Mg Cap.er.24h 240 Mg PO DAILYWLUN Amiodarone Hcl 200 Mg Tablet 200 Mg PO BID Vitamin B-12 (Cyanocobalamin (Vitamin B-12)) 1,000 Mcg Tablet 1,000 Mcg PO DAILY Reported Levothyroxine Sodium 150 Mcg Tablet 1 Tab PO DAILY Glipizide 5 Mg Tablet 2.5 Mg PO DAILY Tylenol (Acetaminophen) 325 Mg Tablet 1 Tab PO PRN Q4HRS Flomax (Tamsulosin Hcl) 0.4 Mg Cap.er.24h 1 Cap PO DAILY Potassium Chloride 10 Meq Capsule.er 10 Meq PO DAILY Lasix (Furosemide) 40 Mg Tablet 1 Tab PO DAILY Folic Acid 1 Mg Tablet 1 Tab PO DAILY Colace (Docusate Sodium) 100 Mg Capsule 1 Cap PO DAILY Clopidogrel (Clopidogrel Bisulfate) 75 Mg Tablet 1 Tab PO DAILY Betamethasone Dipropionate 15 Gm Cream..g. 1 Ayad TP BID Atorvastatin Calcium 40 Mg Tablet 1 Tab PO DAILY Aspir 81 (Aspirin) 81 Mg Tablet.dr 1 Tab PO DAILY Alvesco (Ciclesonide) 6.1 Gm Hfa.aer.ad 6.1 Gm IH Ventolin Hfa Inhaler (Albuterol Sulfate) 18 Gm Hfa.aer.ad 18 Gm IH Albuterol Sulfate Neb Soln (Albuterol Sulfate) 2.5 Mg/3 Ml Vial.neb 2.5 Mg IH TID PRN Metformin Hcl 1,000 Mg Tablet 1,000 Mg PO BID Vitals/I & O Vital Sign - Last 24 Hours 03/05/18 03/05/18 03/05/18 03/05/18 11:00 12:00 13:35 15:00 Temp 97.5 98.1 97.5 98.1 Pulse 67 98 101 Resp 16 16 B/P (MAP) 95/62 (73) 95/62 120/69 (86) Pulse Ox 94 96 O2 Delivery Room Air Nasal Cannula Room Air O2 Flow Rate 2.0 03/05/18 03/05/18 03/05/18 03/05/18 17:20 19:20 19:25 19:45 Temp 95.9 95.9 Pulse 101 84 Resp 22 B/P (MAP) 120/69 106/59 (75) Pulse Ox 96 O2 Delivery Room Air Room Air Nasal Cannula O2 Flow Rate 2.0 03/05/18 03/05/18 03/05/18 03/05/18 20:45 20:46 21:45 22:42 Temp 93.6 93.6 Pulse 84 95 Resp 20 20 18 B/P (MAP) 106/59 90/66 (74) Pulse Ox 94 O2 Delivery Room Air Room Air Room Air 03/06/18 03/06/18 03/06/18 03/06/18 03:00 07:00 07:12 08:00 Temp 92.6 97.9 92.6 97.9 Pulse 96 96 96 Resp 18 B/P (MAP) 140/68 (92) 116/79 (91) 116/79 Pulse Ox 94 96 O2 Delivery Room Air Room Air Room Air 03/06/18 03/06/18 09:00 09:09 Pulse 96 B/P (MAP) 116/79 Pulse Ox 96 O2 Delivery Room Air Intake and Output 03/05/18 03/05/18 03/06/18 15:00 23:00 07:00 Intake Total 60 ml 1800 ml Output Total 1 ml 350 ml Balance 59 ml 1450 ml FELIX MCKENNA MD Mar 06, 2018 09:33
[2018-03-06 11:00] VITALS: BP 93/74
[2018-03-06] MEDS: SPIRONOLACTONE 25 MG TABLET PO SCH (11:00)
[2018-03-06] MEDS ORDERED: FUROSEMIDE 40 MG/4 ML VIAL. IVP ONE (11:00)
--- NOTE | 2018-03-06 14:09 | PDOC ---
Infectious Disease Note Subjective Subjective Feeling alright but not noticing any significant improvement with scrotal swelling Says the thermometer doesn't work on him, running low temps. No chills/sweats or backaches + BM ROS ROS per HPI otherwise neg Vital Sign Vital Signs Vital Signs Date Time Temp Pulse Resp B/P (MAP) Pulse Ox O2 Delivery O2 Flow Rate FiO2 03/06/18 13:40 Room Air 03/06/18 11:00 92.9 94 18 93/74 (80) 93 92.9 03/05/18 19:45 2.0 Physical Exam PHYSICAL EXAM GENERAL: Propped up in bed, alert, calm, restraints LUNGS: Clear. HEART: S1, S2 regular. ABDOMEN: Obese, soft, NT : Scrotal swelling. There is no erythema or wound. Flores in place EXTREMITIES: BLE bandaged NEUROLOGIC: Alert and oriented SKIN: warm, no rash PIV Labs Lab Laboratory Tests Test 03/05/18 16:45 03/05/18 20:43 03/06/18 08:06 03/06/18 11:55 Glucose (Fingerstick) 78 mg/dL (70-99) 173 mg/dL (70-99) 80 mg/dL (70-99) 117 mg/dL (70-99) Micro Microbiology 03/03/18 Urine Culture - Final, Complete 03/03/18 Urine Culture Result 1 (ABHIJIT) - Final, Complete Objective Assessment Scrotal edema , do not believe has Willian gangrene Lower ext chronic stasis dermatitis BPH CHF Pacemaker HTN Renal insufficiency MRSA colonization Amiodarone therapy Plan Plan of Care Zyvox and Unasyn - po soon leg elevation scrotal support and elevation D/w RN Patient seen and examined. Chart reviewed in detail. Case discussed with [employer]. Agree with above plan. HELADIO MELGOZA APRN Mar 06, 2018 14:09 GREER GROSS MD Mar 06, 2018 21:18
[2018-03-06 15:00] VITALS: BP 113/70
[2018-03-06] MEDS: CARVEDILOL 3.125 MG TABLET. PO SCH (17:00)
[2018-03-06 19:00] VITALS: BP 96/62
[2018-03-06] MEDS: ATORVASTATIN CALCIUM 40 MG TABLET. PO SCH (21:00)
[2018-03-06 23:00] VITALS: BP 116/68
[2018-03-07 03:00] VITALS: BP 123/63
[2018-03-07] MEDS: AMPICILLIN/SULBACTAM 3 GM in IV NORMAL SALINE 100ML 100 ML IV SCH ×4 (06:04→23:55)
[2018-03-07] MEDS: CLOPIDOGREL BISULFATE 75 MG TABLET PO SCH (06:29)
[2018-03-07] MEDS: LEVOTHYROXINE 150 MCG TABLET PO SCH (06:29)
[2018-03-07] MEDS: traMADol 50 MG TABLET PO PRN ×2 (06:31→15:40)
[2018-03-07] MEDS: ALBUTEROL SULFATE 2.5 MG/3 ML NEBU. NEB SCH ×3 (06:55→19:41)
[2018-03-07 07:00] VITALS: BP 150/66
[2018-03-07] MEDS: INSULIN LISPRO 300 UNITS/3 ML INSULN.PEN. SQ SCH ×3 (08:00→16:59)
[2018-03-07] MEDS: LACTOBACILLUS RHAMNOSUS GG 1 CAPSULE. PO SCH ×2 (08:44→21:01)
[2018-03-07] MEDS: SPIRONOLACTONE 25 MG TABLET PO SCH (08:44)
[2018-03-07] MEDS: LINEZOLID 600 MG TABLET PO SCH ×2 (08:44→21:01)
[2018-03-07] MEDS: DOCUSATE SODIUM 100 MG CAPSULE. PO SCH (08:44)
[2018-03-07] MEDS: CARVEDILOL 3.125 MG TABLET. PO SCH ×2 (08:45→17:24)
[2018-03-07] MEDS: FOLIC ACID 1 MG TABLET. PO SCH (08:45)
[2018-03-07] MEDS: CYANOCOBALAMIN (VITAMIN B-12) 1,000 MCG TABLET. PO SCH (08:45)
[2018-03-07] MEDS: ASPIRIN ENTERIC COATED 81 MG TABLET.DR. PO SCH (08:46)
[2018-03-07] MEDS: AMIODARONE HCL 200 MG TABLET. PO SCH ×2 (08:46→21:02)
[2018-03-07] MEDS: TAMSULOSIN 0.4 MG CAP.ER.24H. PO SCH (08:46)
--- NOTE | 2018-03-07 09:16 | PDOC ---
Infectious Disease Note Subjective Subjective Feeling alright but not noticing any significant improvement with scrotal swelling . No chills/sweats or backaches Vital Sign Vital Signs Vital Signs Date Time Temp Pulse Resp B/P (MAP) Pulse Ox O2 Delivery O2 Flow Rate FiO2 03/07/18 08:46 98 150/66 03/07/18 07:33 Room Air 03/07/18 06:31 20 03/07/18 03:00 96.3 93 96.3 Physical Exam PHYSICAL EXAM GENERAL: Propped up in bed, alert, calm, restraints LUNGS: Clear. HEART: S1, S2 regular. ABDOMEN: Obese, soft, NT : Scrotal swelling. There is no erythema or wound. Flores in place EXTREMITIES: BLE bandaged NEUROLOGIC: Alert and oriented SKIN: warm, no rash PIV Labs Lab Laboratory Tests Test 03/06/18 11:55 03/06/18 17:05 03/06/18 20:28 03/07/18 07:51 Glucose (Fingerstick) 117 mg/dL (70-99) 112 mg/dL (70-99) 164 mg/dL (70-99) 87 mg/dL (70-99) Micro Microbiology 03/03/18 Urine Culture - Final, Complete 03/03/18 Urine Culture Result 1 (ABHIJIT) - Final, Complete Objective Assessment Scrotal edema , Lower ext chronic stasis dermatitis , secondary acute cellulitis appears less likely BPH CHF Pacemaker HTN Renal insufficiency Plan Plan of Care d/c Zyvox and Unasyn - leg elevation scrotal support and elevation D/w RN may need albumin diuresis ZARI HAGER MD Mar 07, 2018 09:16
--- NOTE | 2018-03-07 10:16 | PDOC ---
SUBJECTIVE Subjective Pt comfortable today. He has noticed some mild drainage from his scrotum. He thinks that his LE swelling is improving, but not his scrotal swelling. OBJECTIVE Objective Physical Exam: General appearance: Alert and Oriented Head: Normocephalic, without obvious abnormality Eyes: conjunctivae/corneas clear. PERRL, EOM's intact. Fundi benign Lungs: regular respirations, non labored breathing. Abdomen: anasarca Pelvic: significant scrotal edema, weeping serous fluid from ventral side. Extremities: significant edema Vital Signs Vital Signs Date Time Temp Pulse Resp B/P (MAP) Pulse Ox O2 Delivery O2 Flow Rate FiO2 03/07/18 08:46 98 150/66 03/07/18 08:45 98 150/66 03/07/18 07:33 Room Air 03/07/18 07:25 Room Air 03/07/18 07:00 96.3 72 22 150/66 (94) 92 Room Air 96.3 03/07/18 06:56 Room Air 03/07/18 06:31 20 Room Air 03/07/18 03:00 96.3 99 18 123/63 (83) 93 Room Air 96.3 03/06/18 23:00 97.1 55 18 116/68 (84) 96 Room Air 97.1 03/06/18 21:00 95 113/70 03/06/18 20:51 20 03/06/18 19:51 20 Room Air 03/06/18 19:50 Room Air 03/06/18 19:43 Room Air 03/06/18 19:00 97.1 52 22 96/62 (73) 100 Room Air 97.1 03/06/18 17:00 95 113/70 03/06/18 15:00 93.3 95 18 113/70 (84) 95 Room Air 93.3 03/06/18 13:40 Room Air 03/06/18 11:00 92.9 94 18 93/74 (80) 93 Room Air 92.9 03/06/18 10:15 93 I & O Intake and Output 03/07/18 07:01 Intake Total 915 ml Output Total 950 ml Balance -35 ml Intake Oral 540 ml Other 375 ml Output Urine Total 950 ml PHYSICAL EXAM Physical Exam General appearance: Alert and Oriented Head: Normocephalic, without obvious abnormality Eyes: conjunctivae/corneas clear. PERRL, EOM's intact. Fundi benign Lungs: regular respirations, non labored breathing. Abdomen: anasarca Pelvic: significant scrotal edema, weeping serous fluid from ventral side. Extremities: significant edema ASSESSMENT/PLAN Assessment/Plan Leave baker catheter in place until scrotal swelling is resolved. Recommend continued diuresis, will defer to medical team. Will follow. COMMENT Lab Laboratory Tests Test 03/06/18 11:55 03/06/18 17:05 03/06/18 20:28 03/07/18 07:51 Glucose (Fingerstick) 117 mg/dL (70-99) 112 mg/dL (70-99) 164 mg/dL (70-99) 87 mg/dL (70-99) SHANNON BEVERLY [employer]IC TESTER Mar 07, 2018 10:16
[2018-03-07 11:00] VITALS: BP 113/71
--- NOTE | 2018-03-07 13:03 | PDOC2 ---
PALLIATIVE CARE Palliative Care Note Palliative Care Consult requested by Dr. Valdivia to address Hospice. Medical Assessment per record; Scrotal edema , Lower ext chronic stasis dermatitis , secondary acute cellulitis appears less likely BPH CHF Pacemaker HTN Renal insufficiency Patient is alert and oriented x3. Mild respiratory distress with minimal activity. Lower extremities cool, dusky. Patient is able to provide basic medical information. Above medical information shared with patient int detail. Information is not available regarding Heart Failure--pacemaker. Discussed comfort care when patient returns to [facility] Outside the Hospital DNR/DNI form read to patient and signed by patient Spoke with Dr. Mckeon regarding above and specific qualification for Hospice. Plan: Considering Comfort Care when return to [facility] DNR/DNI. Send original to facility with patient. Above reviewed with Mike shed hand. LEBRON PADILLA Mar 07, 2018 13:02
--- NOTE | 2018-03-07 14:21 | PDOC ---
PROGRESS NOTES Chief Complaint Chief Complaint Urinary retention, status post successful placement of Flores catheter by urology , 03/02/18 Ascites with marked scrotal edema due to CHF, acute on chronic diastolic History BPH on Flomax Bilateral lower extremity edema, some oozing HTN, afib , indwelling pacer - all chronic stable Lower ext chronic stasis dermatitis CHF Pacemaker Renal insufficiency MRSA colonization Amiodarone therapy History of Present Illness History of Present Illness scrotum still very swollen, cont lasix, start Albumin infusion, would do daily applying ice and elevate scrotum started spironolactone Flores catheter appears to have adequate drainage would consider DC to hospice at the long term, they could arrange NH placement if needed, Vitals Vitals Vital Signs Date Time Temp Pulse Resp B/P (MAP) Pulse Ox O2 Delivery O2 Flow Rate FiO2 03/07/18 12:59 Room Air 03/07/18 11:00 97.5 74 20 113/71 (85) 92 97.5 Physical Exam Physical Exam GENERAL: Propped up in bed, alert, calm, restraints LUNGS: Clear. HEART: S1, S2 regular. ABDOMEN: Obese, soft, NT : Scrotal swelling. There is no erythema or wound. Flores in place EXTREMITIES: BLE bandaged NEUROLOGIC: Alert and oriented SKIN: warm, no rash PIV General: Alert, Oriented X3, Cooperative, No acute distress Heart: Regular rate, Normal S1, Normal S2, No murmurs, Gallops Lungs: Clear Abdomen: Normal bowel sounds, Soft, No tenderness, No hepatosplenomegaly, No masses Extremities: Other (BLE EDEMA) Skin: No rashes, Other (BILATERAL LE ERYTHEMA AND STASIS DISCOLORATIONI) Labs LABS Laboratory Tests Test 03/06/18 17:05 03/06/18 20:28 03/07/18 07:51 03/07/18 11:30 Glucose (Fingerstick) 112 mg/dL (70-99) 164 mg/dL (70-99) 87 mg/dL (70-99) 91 mg/dL (70-99) Review of Systems Review of Systems back pain, leg pain, scrotal swelling is wheelchair bound, maybe for years Comment Review of Relevant I have reviewed the following items kelsey (where applicable) has been applied. Labs Laboratory Tests Test 03/05/18 16:45 03/05/18 20:43 03/06/18 08:06 03/06/18 11:55 Glucose (Fingerstick) 78 mg/dL (70-99) 173 mg/dL (70-99) 80 mg/dL (70-99) 117 mg/dL (70-99) Test 03/06/18 17:05 03/06/18 20:28 03/07/18 07:51 03/07/18 11:30 Glucose (Fingerstick) 112 mg/dL (70-99) 164 mg/dL (70-99) 87 mg/dL (70-99) 91 mg/dL (70-99) Laboratory Tests Test 03/06/18 17:05 03/06/18 20:28 03/07/18 07:51 03/07/18 11:30 Glucose (Fingerstick) 112 mg/dL (70-99) 164 mg/dL (70-99) 87 mg/dL (70-99) 91 mg/dL (70-99) Microbiology 03/03/18 Urine Culture - Final, Complete 03/03/18 Urine Culture Result 1 (ABHIJIT) - Final, Complete Medications Current Medications Ondansetron HCl (Zofran) 4 mg PRN Q8HRS PRN IV NAUSEA/VOMITING; Start 03/02/18 at 17:30; Stop 03/03/18 at 17:29; Status DC Morphine Sulfate (Morphine Sulfate) 4 mg PRN Q2HR PRN IV PAIN Last administered on 03/03/18at 13:04; Start 03/02/18 at 17:30; Stop 03/03/18 at 17:29 ; Status DC Acetaminophen (Tylenol) 650 mg PRN Q4HRS PRN PO FEVER; Start 03/02/18 at 17:30 ; Stop 03/03/18 at 15:52; Status DC Furosemide (Lasix) 60 mg 1X ONCE IVP Last administered on 03/02/18at 23:02; Start 03/02/18 at 17:30; Stop 03/02/18 at 17:50; Status DC Acetaminophen (Tylenol) 325 mg PRN Q4HRS PRN PO MILD PAIN / TEMP Last administered on 03/04/18at 08:33; Start 03/02/18 at 17:30 Albuterol Sulfate (Ventolin Neb Soln) 2.5 mg TID NEB Last administered on at 12:59; Start 03/02/18 at 17:30 Amiodarone HCl (Cordarone) 200 mg BID PO Last administered on 03/07/18at 08:46; Start 03/02/18 at 21:00 Aspirin (Ecotrin) 81 mg DAILY08 PO Last administered on 03/07/18 08:46; Start 03/02/18 at 18:30 Atorvastatin Calcium (Lipitor) 40 mg QHS PO Last administered on 03/06/18at 21: 00; Start 03/02/18 at 21:00 Carvedilol (Coreg) 12.5 mg BIDWMEALS PO Last administered on 03/05/18 17:20; Start 03/02/18 at 18:30; Stop 03/06/18 at 10:27; Status DC Clopidogrel Bisulfate (Plavix) 75 mg DAILY07 PO Last administered on 03/07/18at 06:29; Start 03/02/18 at 18:30 Cyanocobalamin (Vitamin B-12) 1,000 mcg DAILY PO Last administered on at 08:45; Start 03/02/18 at 18:30 Diltiazem HCl (Cardizem 24hr Cd) 240 mg DAILYWLUN PO ; Start 03/03/18 at 12:00; Stop 03/06/18 at 10:27; Status DC Docusate Sodium (Colace) 100 mg DAILY PO Last administered on 03/07/18at 08:44; Start 03/02/18 at 18:30 Folic Acid (Folic Acid) 1 mg DAILY PO Last administered on 03/07/18at 08:45; Start 03/02/18 at 18:30 Glipizide (Glucotrol Er) 2.5 mg DAILY PO Last administered on 03/04/18at 08:32; Start 03/03/18 at 09:00; Stop 03/06/18 at 09:54; Status DC Potassium Chloride (Klor-Con) 10 meq DAILY PO Last administered on 03/04/18at 08 :33; Start 03/02/18 at 18:30; Stop 03/04/18 at 10:51; Status DC Tamsulosin HCl (Flomax) 0.4 mg DAILY PO Last administered on 03/07/18at 08:46; Start 03/02/18 at 18:30 Fluocinonide (Lidex) 1 ayad PRN BID PRN TP IRRITATED AREAS; Start 03/02/18 at 21 :00 Levothyroxine Sodium (Synthroid) 150 mcg DAILY07 PO Last administered on at 06:29; Start 03/02/18 at 18:30 Metformin HCl (Glucophage) 1,000 mg BIDWMEALS PO Last administered on at 08:32; Start 03/03/18 at 08:00; Stop 03/04/18 at 10:51; Status DC Insulin Human Lispro (HumaLOG) 0-9 UNITS TIDWMEALS SQ ; Start 03/03/18 at 08:00 Dextrose (Dextrose 50%-Water Syringe) 12.5 gm PRN Q15MIN PRN IV SEE COMMENTS; Start 03/02/18 at 17:30 Furosemide (Lasix) 40 mg DAILY IVP Last administered on 03/04/18at 08:34; Start 03/03/18 at 09:00; Stop 03/04/18 at 10:51; Status DC Ampicillin Sodium/ Sulbactam Sodium 3 gm/Sodium Chloride 100 ml @ 200 mls/hr Q6HRS IV Last administered on 03/07/18at 12:04; Start 03/03/18 at 12:00 Sodium Chloride 500 ml @ 500 mls/hr 1X ONCE IV Last administered on at 13:54; Start 03/03/18 at 14:00; Stop 03/03/18 at 14:59; Status DC Sodium Chloride 500 ml @ 500 mls/hr 1X ONCE IV Last administered on at 18:15; Start 03/03/18 at 18:15; Stop 03/03/18 at 19:14; Status DC Linezolid (Zyvox) 600 mg BID PO Last administered on 03/07/18at 08:44; Start at 09:30 Lactobacillus Rhamnosus (Culturelle) 1 cap BID PO Last administered on at 08:44; Start 03/04/18 at 11:00 Sodium Chloride 1,000 ml @ 75 mls/hr [id number] IV Last administered on at 04:20; Start 03/04/18 at 11:00; Stop 03/06/18 at 10:27; Status DC Sodium Chloride 500 ml @ 500 mls/hr 1X ONCE IV Last administered on at 15:12; Start 03/04/18 at 15:00; Stop 03/04/18 at 15:59; Status DC Tramadol HCl (Ultram) 50 mg PRN Q8HRS PRN PO MODERATE PAIN Last administered on 03/07/18at 06:31; Start 03/05/18 at 19:15 Acetaminophen/ Hydrocodone Bitart (Lortab 5/325) 1 tab PRN Q4HRS PRN PO SEVERE PAIN; Start 03/05/18 at 19:15 Carvedilol (Coreg) 3.125 mg BIDWMEALS PO Last administered on 03/07/18at 08:45; Start 03/06/18 at 17:00 Spironolactone (Aldactone) 25 mg DAILY PO Last administered on 03/07/18at 08:44 ; Start 03/06/18 at 11:00 Furosemide (Lasix) 40 mg 1X ONCE IVP Last administered on 03/06/18at 12:01; Start 03/06/18 at 11:00; Stop 03/06/18 at 11:01; Status DC Albumin Human 100 ml @ 100 mls/hr 1X ONCE IV ; Start 03/07/18 at 14:30; Stop 03/07/18 at 15:29; Status UNV Active Scripts Active Carvedilol 12.5 Mg Tablet 12.5 Mg PO BIDWMEALS Diltiazem 24HR Cd (Diltiazem Hcl) 240 Mg Cap.er.24h 240 Mg PO DAILYWLUN Amiodarone Hcl 200 Mg Tablet 200 Mg PO BID Vitamin B-12 (Cyanocobalamin (Vitamin B-12)) 1,000 Mcg Tablet 1,000 Mcg PO DAILY Reported Levothyroxine Sodium 150 Mcg Tablet 1 Tab PO DAILY Glipizide 5 Mg Tablet 2.5 Mg PO DAILY Tylenol (Acetaminophen) 325 Mg Tablet 1 Tab PO PRN Q4HRS Flomax (Tamsulosin Hcl) 0.4 Mg Cap.er.24h 1 Cap PO DAILY Potassium Chloride 10 Meq Capsule.er 10 Meq PO DAILY Lasix (Furosemide) 40 Mg Tablet 1 Tab PO DAILY Folic Acid 1 Mg Tablet 1 Tab PO DAILY Colace (Docusate Sodium) 100 Mg Capsule 1 Cap PO DAILY Clopidogrel (Clopidogrel Bisulfate) 75 Mg Tablet 1 Tab PO DAILY Betamethasone Dipropionate 15 Gm Cream..g. 1 Ayad TP BID Atorvastatin Calcium 40 Mg Tablet 1 Tab PO DAILY Aspir 81 (Aspirin) 81 Mg Tablet.dr 1 Tab PO DAILY Alvesco (Ciclesonide) 6.1 Gm Hfa.aer.ad 6.1 Gm IH Ventolin Hfa Inhaler (Albuterol Sulfate) 18 Gm Hfa.aer.ad 18 Gm IH Albuterol Sulfate Neb Soln (Albuterol Sulfate) 2.5 Mg/3 Ml Vial.neb 2.5 Mg IH TID PRN Metformin Hcl 1,000 Mg Tablet 1,000 Mg PO BID Vitals/I & O Vital Sign - Last 24 Hours 03/06/18 03/06/18 03/06/18 03/06/18 15:00 17:00 19:00 19:43 Temp 93.3 97.1 93.3 97.1 Pulse 95 95 52 Resp 18 22 B/P (MAP) 113/70 (84) 113/70 96/62 (73) Pulse Ox 95 100 O2 Delivery Room Air Room Air Room Air 03/06/18 03/06/18 03/06/18 03/06/18 19:50 19:51 20:51 21:00 Pulse 95 Resp 20 20 B/P (MAP) 113/70 O2 Delivery Room Air Room Air 03/06/18 03/07/18 03/07/18 03/07/18 23:00 03:00 06:31 06:56 Temp 97.1 96.3 97.1 96.3 Pulse 55 99 Resp 18 18 20 B/P (MAP) 116/68 (84) 123/63 (83) Pulse Ox 96 93 O2 Delivery Room Air Room Air Room Air Room Air 03/07/18 03/07/18 03/07/18 03/07/18 07:00 07:25 07:33 08:45 Temp 96.3 96.3 Pulse 72 98 Resp 22 B/P (MAP) 150/66 (94) 150/66 Pulse Ox 92 O2 Delivery Room Air Room Air Room Air 03/07/18 03/07/18 03/07/18 08:46 11:00 12:59 Temp 97.5 97.5 Pulse 98 74 Resp 20 B/P (MAP) 150/66 113/71 (85) Pulse Ox 92 O2 Delivery Room Air Room Air Intake and Output 03/06/18 03/06/18 03/07/18 15:01 23:01 07:01 Intake Total 915 ml Output Total 650 ml 300 ml Balance -650 ml 615 ml NELSON SHAY MD Mar 07, 2018 14:21
[2018-03-07 15:00] VITALS: BP 114/80
[2018-03-07] MEDS ORDERED: ALBUMIN HUMAN 25% 100 ML IV ONE (15:00)
[2018-03-07 19:00] VITALS: BP 104/74
[2018-03-07] MEDS: ATORVASTATIN CALCIUM 40 MG TABLET. PO SCH (21:02)
[2018-03-07 23:00] VITALS: BP 102/70
[2018-03-08 03:00] VITALS: BP 107/65
[2018-03-08 05:53] LABS: BASO % 1 % (0-3); EOS % 0 % (0-3); HEMATOCRIT 38.4 % (39.0-53.0); HEMOGLOBIN 12.2 g/dL (13.0-17.5); LYMPH # 0.4 x10^3/uL (1.0-4.8); LYMPH % 5 % (24-48); MEAN CORPUSCULAR HEMOGLOBIN 29 pg (25-35); MEAN CORPUSCULAR HGB CONC 32 g/dL (31-37); MEAN CORPUSCULAR VOLUME 91 fL (79-100); MONO # 0.9 x10^3/uL (0.0-1.1); MONO % 11 % (0-9); NEUT # 6.7 x10^3uL (1.8-7.7); NEUT % 84 % (31-73); PLATELET COUNT 223 x10^3/uL (140-400); RED BLOOD COUNT 4.21 x10^6/uL (4.30-5.70); RED CELL DISTRIBUTION WIDTH 21.1 % (11.5-14.5); WHITE BLOOD COUNT 7.9 x10^3/uL (4.0-11.0)
[2018-03-08 06:16] LABS: ALBUMIN 2.7 g/dL (3.4-5.0); ALBUMIN/GLOBULIN RATIO 0.6 (1.0-1.7); CALCIUM 8.8 mg/dL (8.5-10.1); CREATININE 2.6 mg/dL (0.7-1.3); TOTAL PROTEIN 7.2 g/dL (6.4-8.2)
[2018-03-08 06:17] LABS: GFR 23.6; POTASSIUM 4.5 mmol/L (3.5-5.1); TOTAL BILIRUBIN 1.3 mg/dL (0.2-1.0)
[2018-03-08] MEDS: CLOPIDOGREL BISULFATE 75 MG TABLET PO SCH (06:20)
[2018-03-08] MEDS: LEVOTHYROXINE 150 MCG TABLET PO SCH (06:20)
[2018-03-08] MEDS: AMPICILLIN/SULBACTAM 3 GM in IV NORMAL SALINE 100ML 100 ML IV SCH (06:23)
[2018-03-08 07:00] VITALS: BP 101/49
[2018-03-08] MEDS: ALBUTEROL SULFATE 2.5 MG/3 ML NEBU. NEB SCH ×2 (07:10→14:59)
[2018-03-08] MEDS: INSULIN LISPRO 300 UNITS/3 ML INSULN.PEN. SQ SCH ×3 (08:00→17:00)
[2018-03-08] MEDS: CARVEDILOL 3.125 MG TABLET. PO SCH ×2 (08:00→17:14)
--- NOTE | 2018-03-08 08:49 | PDOC ---
Infectious Disease Note Subjective Subjective Feeling alright but not noticing any significant improvement with scrotal swelling . No chills/sweats or backaches ROS ROS no n/v/d/sob Vital Sign Vital Signs Vital Signs Date Time Temp Pulse Resp B/P (MAP) Pulse Ox O2 Delivery O2 Flow Rate FiO2 03/08/18 07:10 96 Room Air 03/08/18 07:00 96.3 90 14 101/49 (66) 96.3 Physical Exam PHYSICAL EXAM GENERAL: Propped up in bed, alert, calm, restraints LUNGS: Clear. HEART: S1, S2 regular. ABDOMEN: Obese, soft, NT : Scrotal swelling. There is no erythema or wound. Flores in place EXTREMITIES: BLE bandaged redness gone NEUROLOGIC: Alert and oriented SKIN: warm, no rash PIV Labs Lab Laboratory Tests Test 03/07/18 11:30 03/07/18 16:22 03/07/18 20:53 03/08/18 05:00 Glucose (Fingerstick) 91 mg/dL (70-99) 105 mg/dL (70-99) 138 mg/dL (70-99) White Blood Count 7.9 x10^3/uL (4.0-11.0) Red Blood Count 4.21 x10^6/uL (4.30-5.70) Hemoglobin 12.2 g/dL (13.0-17.5) Hematocrit 38.4 % (39.0-53.0) Mean Corpuscular Volume 91 fL (79-100) Mean Corpuscular Hemoglobin 29 pg (25-35) Mean Corpuscular Hemoglobin Concent 32 g/dL (31-37) Red Cell Distribution Width 21.1 % (11.5-14.5) Platelet Count 223 x10^3/uL (140-400) Neutrophils (%) (Auto) 84 % (31-73) Lymphocytes (%) (Auto) 5 % (24-48) Monocytes (%) (Auto) 11 % (0-9) Eosinophils (%) (Auto) 0 % (0-3) Basophils (%) (Auto) 1 % (0-3) Neutrophils # (Auto) 6.7 x10^3uL (1.8-7.7) Lymphocytes # (Auto) 0.4 x10^3/uL (1.0-4.8) Monocytes # (Auto) 0.9 x10^3/uL (0.0-1.1) Eosinophils # (Auto) 0.0 x10^3/uL (0.0-0.7) Basophils # (Auto) 0.0 x10^3/uL (0.0-0.2) Sodium Level 139 mmol/L (136-145) Potassium Level 4.5 mmol/L (3.5-5.1) Chloride Level 104 mmol/L (98-107) Carbon Dioxide Level 21 mmol/L (21-32) Anion Gap 14 (6-14) Blood Urea Nitrogen 53 mg/dL (8-26) Creatinine 2.6 mg/dL (0.7-1.3) Estimated GFR (Cockcroft-Gault) 23.6 BUN/Creatinine Ratio 20 (6-20) Glucose Level 76 mg/dL (70-99) Calcium Level 8.8 mg/dL (8.5-10.1) Total Bilirubin 1.3 mg/dL (0.2-1.0) Aspartate Amino Transf (AST/SGOT) 40 U/L (15-37) Alanine Aminotransferase (ALT/SGPT) 23 U/L (16-63) Alkaline Phosphatase 127 U/L (46-116) Total Protein 7.2 g/dL (6.4-8.2) Albumin 2.7 g/dL (3.4-5.0) Albumin/Globulin Ratio 0.6 (1.0-1.7) Test 03/08/18 07:24 03/08/18 08:09 Glucose (Fingerstick) 68 mg/dL (70-99) 76 mg/dL (70-99) Micro Microbiology 03/03/18 Urine Culture - Final, Complete 03/03/18 Urine Culture Result 1 (ABHIJIT) - Final, Complete Objective Assessment Scrotal edema , Lower ext chronic stasis dermatitis , secondary acute cellulitis appears less likely BPH CHF Pacemaker HTN Renal insufficiency Plan Plan of Care d/c antibiotis leg elevation scrotal support and elevation D/w RN may need more albumin diuresis ZARI HAGER MD Mar 08, 2018 08:49
[2018-03-08] MEDS: DOCUSATE SODIUM 100 MG CAPSULE. PO SCH (09:00)
[2018-03-08] MEDS: SPIRONOLACTONE 25 MG TABLET PO SCH (09:00)
[2018-03-08] MEDS: AMIODARONE HCL 200 MG TABLET. PO SCH ×2 (09:00→20:23)
[2018-03-08] MEDS: FOLIC ACID 1 MG TABLET. PO SCH (09:55)
[2018-03-08] MEDS: ASPIRIN ENTERIC COATED 81 MG TABLET.DR. PO SCH (09:55)
[2018-03-08] MEDS: LACTOBACILLUS RHAMNOSUS GG 1 CAPSULE. PO SCH ×2 (09:55→20:18)
[2018-03-08] MEDS: TAMSULOSIN 0.4 MG CAP.ER.24H. PO SCH (09:55)
[2018-03-08] MEDS: CYANOCOBALAMIN (VITAMIN B-12) 1,000 MCG TABLET. PO SCH (09:55)
[2018-03-08 11:00] VITALS: BP 110/69
[2018-03-08] MEDS: ALBUMIN HUMAN 25% 100 ML IV SCH ×2 (11:54→20:19)
[2018-03-08] MEDS: traMADol 50 MG TABLET PO PRN ×2 (11:55→23:24)
--- NOTE | 2018-03-08 13:24 | PDOC ---
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 PERRL, EOM's intact. Fundi benign Lungs: regular respirations, non labored breathing. Abdomen: anasarca Pelvic: significant scrotal edema, weeping serous fluid from ventral side. Baker catheter in place draining yellow urine with occasional white sediment. Extremities: significant edema Vital Signs Vital Signs Date Time Temp Pulse Resp B/P (MAP) Pulse Ox O2 Delivery O2 Flow Rate FiO2 03/08/18 11:55 Room Air 03/08/18 11:00 96.4 95 14 110/69 (83) 94 Room Air 96.4 03/08/18 09:00 90 101/49 03/08/18 08:00 90 101/49 03/08/18 07:15 Room Air 03/08/18 07:10 96 Room Air 03/08/18 07:00 96.3 90 14 101/49 (66) 94 Room Air 96.3 03/08/18 03:00 97.0 93 18 107/65 (79) 93 Room Air 97.0 03/07/18 23:00 97.1 93 18 102/70 (81) 93 Room Air 97.1 03/07/18 21:15 Room Air 03/07/18 21:02 83 104/74 03/07/18 19:41 Room Air 03/07/18 19:00 96.1 83 18 104/74 (84) 91 Room Air 96.1 03/07/18 17:24 98 114/80 03/07/18 16:58 Room Air 03/07/18 15:40 Room Air 03/07/18 15:00 97.6 98 22 114/80 (91) 92 Room Air 97.6 I & O Intake and Output 03/08/18 07:00 Intake Total 100 ml Output Total 500 ml Balance -400 ml Intake Oral 0 ml IV Total 100 ml Output Urine Total 500 ml PHYSICAL EXAM Physical Exam Physical Exam: General appearance: Alert and Oriented Head: Normocephalic, without obvious abnormality Eyes: conjunctivae/corneas clear. PERRL, EOM's intact. Fundi benign Lungs: regular respirations, non labored breathing. Abdomen: anasarca Pelvic: significant scrotal edema, weeping serous fluid from ventral side. Baker catheter in place draining yellow urine with occasional white sediment. Extremities: significant edema ASSESSMENT/PLAN Assessment/Plan Leave baker catheter in place until scrotal swelling is resolved. Recommend continued diuresis, will defer to medical team. Dr. Amari Collins also saw and examined patient with [employer] Isidro Will follow peripherally. COMMENT Lab Laboratory Tests Test 03/07/18 16:22 03/07/18 20:53 03/08/18 05:00 03/08/18 07:24 Glucose (Fingerstick) 105 mg/dL (70-99) 138 mg/dL (70-99) 68 mg/dL (70-99) White Blood Count 7.9 x10^3/uL (4.0-11.0) Red Blood Count 4.21 x10^6/uL (4.30-5.70) Hemoglobin 12.2 g/dL (13.0-17.5) Hematocrit 38.4 % (39.0-53.0) Mean Corpuscular Volume 91 fL (79-100) Mean Corpuscular Hemoglobin 29 pg (25-35) Mean Corpuscular Hemoglobin Concent 32 g/dL (31-37) Red Cell Distribution Width 21.1 % (11.5-14.5) Platelet Count 223 x10^3/uL (140-400) Neutrophils (%) (Auto) 84 % (31-73) Lymphocytes (%) (Auto) 5 % (24-48) Monocytes (%) (Auto) 11 % (0-9) Eosinophils (%) (Auto) 0 % (0-3) Basophils (%) (Auto) 1 % (0-3) Neutrophils # (Auto) 6.7 x10^3uL (1.8-7.7) Lymphocytes # (Auto) 0.4 x10^3/uL (1.0-4.8) Monocytes # (Auto) 0.9 x10^3/uL (0.0-1.1) Eosinophils # (Auto) 0.0 x10^3/uL (0.0-0.7) Basophils # (Auto) 0.0 x10^3/uL (0.0-0.2) Sodium Level 139 mmol/L (136-145) Potassium Level 4.5 mmol/L (3.5-5.1) Chloride Level 104 mmol/L (98-107) Carbon Dioxide Level 21 mmol/L (21-32) Anion Gap 14 (6-14) Blood Urea Nitrogen 53 mg/dL (8-26) Creatinine 2.6 mg/dL (0.7-1.3) Estimated GFR (Cockcroft-Gault) 23.6 BUN/Creatinine Ratio 20 (6-20) Glucose Level 76 mg/dL (70-99) Calcium Level 8.8 mg/dL (8.5-10.1) Total Bilirubin 1.3 mg/dL (0.2-1.0) Aspartate Amino Transf (AST/SGOT) 40 U/L (15-37) Alanine Aminotransferase (ALT/SGPT) 23 U/L (16-63) Alkaline Phosphatase 127 U/L (46-116) Total Protein 7.2 g/dL (6.4-8.2) Albumin 2.7 g/dL (3.4-5.0) Albumin/Globulin Ratio 0.6 (1.0-1.7) Test 03/08/18 08:09 03/08/18 11:49 Glucose (Fingerstick) 76 mg/dL (70-99) 107 mg/dL (70-99) SHANNON BEVERLY APRN Mar 08, 2018 13:24
--- NOTE | 2018-03-08 13:34 | PDOC ---
PROGRESS NOTES Chief Complaint Chief Complaint Urinary retention, status post successful placement of Flores catheter by urology , 03/02/18 Ascites with marked scrotal edema due to CHF, acute on chronic diastolic History BPH on Flomax Bilateral lower extremity edema, some oozing HTN, afib , indwelling pacer - all chronic stable Lower ext chronic stasis dermatitis CHF Pacemaker Renal insufficiency MRSA colonization Amiodarone therapy History of Present Illness History of Present Illness scrotum still very swollen, cont lasix, cont Albumin infusion, will do Q8 for 24 hours then DC to [facility] - hospice care applying ice and elevate scrotum cont spironolactone Flores catheter appears to have adequate drainage Vitals Vitals Vital Signs Date Time Temp Pulse Resp B/P (MAP) Pulse Ox O2 Delivery O2 Flow Rate FiO2 03/08/18 11:55 Room Air 03/08/18 11:00 96.4 95 14 110/69 (83) 94 96.4 Physical Exam Physical Exam GENERAL: Propped up in bed, alert, calm, restraints LUNGS: Clear. HEART: S1, S2 regular. ABDOMEN: Obese, soft, NT : Scrotal swelling. There is no erythema or wound. Flores in place EXTREMITIES: BLE bandaged redness gone NEUROLOGIC: Alert and oriented SKIN: warm, no rash PIV General: Alert, Oriented X3, Cooperative, No acute distress Heart: Regular rate, Normal S1, Normal S2, No murmurs, Gallops Lungs: Clear Abdomen: Normal bowel sounds, Soft, No tenderness, No hepatosplenomegaly, No masses Extremities: Other (BLE EDEMA) Skin: No rashes, Other (BILATERAL LE ERYTHEMA AND STASIS DISCOLORATIONI) Labs LABS Laboratory Tests Test 03/07/18 16:22 03/07/18 20:53 03/08/18 05:00 03/08/18 07:24 Glucose (Fingerstick) 105 mg/dL (70-99) 138 mg/dL (70-99) 68 mg/dL (70-99) White Blood Count 7.9 x10^3/uL (4.0-11.0) Red Blood Count 4.21 x10^6/uL (4.30-5.70) Hemoglobin 12.2 g/dL (13.0-17.5) Hematocrit 38.4 % (39.0-53.0) Mean Corpuscular Volume 91 fL (79-100) Mean Corpuscular Hemoglobin 29 pg (25-35) Mean Corpuscular Hemoglobin Concent 32 g/dL (31-37) Red Cell Distribution Width 21.1 % (11.5-14.5) Platelet Count 223 x10^3/uL (140-400) Neutrophils (%) (Auto) 84 % (31-73) Lymphocytes (%) (Auto) 5 % (24-48) Monocytes (%) (Auto) 11 % (0-9) Eosinophils (%) (Auto) 0 % (0-3) Basophils (%) (Auto) 1 % (0-3) Neutrophils # (Auto) 6.7 x10^3uL (1.8-7.7) Lymphocytes # (Auto) 0.4 x10^3/uL (1.0-4.8) Monocytes # (Auto) 0.9 x10^3/uL (0.0-1.1) Eosinophils # (Auto) 0.0 x10^3/uL (0.0-0.7) Basophils # (Auto) 0.0 x10^3/uL (0.0-0.2) Sodium Level 139 mmol/L (136-145) Potassium Level 4.5 mmol/L (3.5-5.1) Chloride Level 104 mmol/L (98-107) Carbon Dioxide Level 21 mmol/L (21-32) Anion Gap 14 (6-14) Blood Urea Nitrogen 53 mg/dL (8-26) Creatinine 2.6 mg/dL (0.7-1.3) Estimated GFR (Cockcroft-Gault) 23.6 BUN/Creatinine Ratio 20 (6-20) Glucose Level 76 mg/dL (70-99) Calcium Level 8.8 mg/dL (8.5-10.1) Total Bilirubin 1.3 mg/dL (0.2-1.0) Aspartate Amino Transf (AST/SGOT) 40 U/L (15-37) Alanine Aminotransferase (ALT/SGPT) 23 U/L (16-63) Alkaline Phosphatase 127 U/L (46-116) Total Protein 7.2 g/dL (6.4-8.2) Albumin 2.7 g/dL (3.4-5.0) Albumin/Globulin Ratio 0.6 (1.0-1.7) Test 03/08/18 08:09 03/08/18 11:49 Glucose (Fingerstick) 76 mg/dL (70-99) 107 mg/dL (70-99) Comment Review of Relevant I have reviewed the following items kelsey (where applicable) has been applied. Labs Laboratory Tests Test 03/06/18 17:05 03/06/18 20:28 03/07/18 07:51 03/07/18 11:30 Glucose (Fingerstick) 112 mg/dL (70-99) 164 mg/dL (70-99) 87 mg/dL (70-99) 91 mg/dL (70-99) Test 03/07/18 16:22 03/07/18 20:53 03/08/18 05:00 03/08/18 07:24 Glucose (Fingerstick) 105 mg/dL (70-99) 138 mg/dL (70-99) 68 mg/dL (70-99) White Blood Count 7.9 x10^3/uL (4.0-11.0) Red Blood Count 4.21 x10^6/uL (4.30-5.70) Hemoglobin 12.2 g/dL (13.0-17.5) Hematocrit 38.4 % (39.0-53.0) Mean Corpuscular Volume 91 fL (79-100) Mean Corpuscular Hemoglobin 29 pg (25-35) Mean Corpuscular Hemoglobin Concent 32 g/dL (31-37) Red Cell Distribution Width 21.1 % (11.5-14.5) Platelet Count 223 x10^3/uL (140-400) Neutrophils (%) (Auto) 84 % (31-73) Lymphocytes (%) (Auto) 5 % (24-48) Monocytes (%) (Auto) 11 % (0-9) Eosinophils (%) (Auto) 0 % (0-3) Basophils (%) (Auto) 1 % (0-3) Neutrophils # (Auto) 6.7 x10^3uL (1.8-7.7) Lymphocytes # (Auto) 0.4 x10^3/uL (1.0-4.8) Monocytes # (Auto) 0.9 x10^3/uL (0.0-1.1) Eosinophils # (Auto) 0.0 x10^3/uL (0.0-0.7) Basophils # (Auto) 0.0 x10^3/uL (0.0-0.2) Sodium Level 139 mmol/L (136-145) Potassium Level 4.5 mmol/L (3.5-5.1) Chloride Level 104 mmol/L (98-107) Carbon Dioxide Level 21 mmol/L (21-32) Anion Gap 14 (6-14) Blood Urea Nitrogen 53 mg/dL (8-26) Creatinine 2.6 mg/dL (0.7-1.3) Estimated GFR (Cockcroft-Gault) 23.6 BUN/Creatinine Ratio 20 (6-20) Glucose Level 76 mg/dL (70-99) Calcium Level 8.8 mg/dL (8.5-10.1) Total Bilirubin 1.3 mg/dL (0.2-1.0) Aspartate Amino Transf (AST/SGOT) 40 U/L (15-37) Alanine Aminotransferase (ALT/SGPT) 23 U/L (16-63) Alkaline Phosphatase 127 U/L (46-116) Total Protein 7.2 g/dL (6.4-8.2) Albumin 2.7 g/dL (3.4-5.0) Albumin/Globulin Ratio 0.6 (1.0-1.7) Test 03/08/18 08:09 03/08/18 11:49 Glucose (Fingerstick) 76 mg/dL (70-99) 107 mg/dL (70-99) Laboratory Tests Test 03/07/18 16:22 03/07/18 20:53 03/08/18 05:00 03/08/18 07:24 Glucose (Fingerstick) 105 mg/dL (70-99) 138 mg/dL (70-99) 68 mg/dL (70-99) White Blood Count 7.9 x10^3/uL (4.0-11.0) Red Blood Count 4.21 x10^6/uL (4.30-5.70) Hemoglobin 12.2 g/dL (13.0-17.5) Hematocrit 38.4 % (39.0-53.0) Mean Corpuscular Volume 91 fL (79-100) Mean Corpuscular Hemoglobin 29 pg (25-35) Mean Corpuscular Hemoglobin Concent 32 g/dL (31-37) Red Cell Distribution Width 21.1 % (11.5-14.5) Platelet Count 223 x10^3/uL (140-400) Neutrophils (%) (Auto) 84 % (31-73) Lymphocytes (%) (Auto) 5 % (24-48) Monocytes (%) (Auto) 11 % (0-9) Eosinophils (%) (Auto) 0 % (0-3) Basophils (%) (Auto) 1 % (0-3) Neutrophils # (Auto) 6.7 x10^3uL (1.8-7.7) Lymphocytes # (Auto) 0.4 x10^3/uL (1.0-4.8) Monocytes # (Auto) 0.9 x10^3/uL (0.0-1.1) Eosinophils # (Auto) 0.0 x10^3/uL (0.0-0.7) Basophils # (Auto) 0.0 x10^3/uL (0.0-0.2) Sodium Level 139 mmol/L (136-145) Potassium Level 4.5 mmol/L (3.5-5.1) Chloride Level 104 mmol/L (98-107) Carbon Dioxide Level 21 mmol/L (21-32) Anion Gap 14 (6-14) Blood Urea Nitrogen 53 mg/dL (8-26) Creatinine 2.6 mg/dL (0.7-1.3) Estimated GFR (Cockcroft-Gault) 23.6 BUN/Creatinine Ratio 20 (6-20) Glucose Level 76 mg/dL (70-99) Calcium Level 8.8 mg/dL (8.5-10.1) Total Bilirubin 1.3 mg/dL (0.2-1.0) Aspartate Amino Transf (AST/SGOT) 40 U/L (15-37) Alanine Aminotransferase (ALT/SGPT) 23 U/L (16-63) Alkaline Phosphatase 127 U/L (46-116) Total Protein 7.2 g/dL (6.4-8.2) Albumin 2.7 g/dL (3.4-5.0) Albumin/Globulin Ratio 0.6 (1.0-1.7) Test 03/08/18 08:09 03/08/18 11:49 Glucose (Fingerstick) 76 mg/dL (70-99) 107 mg/dL (70-99) Microbiology 03/03/18 Urine Culture - Final, Complete 03/03/18 Urine Culture Result 1 (ABHIJIT) - Final, Complete Medications Current Medications Ondansetron HCl (Zofran) 4 mg PRN Q8HRS PRN IV NAUSEA/VOMITING; Start 03/02/18 at 17:30; Stop 03/03/18 at 17:29; Status DC Morphine Sulfate (Morphine Sulfate) 4 mg PRN Q2HR PRN IV PAIN Last administered on 03/03/18at 13:04; Start 03/02/18 at 17:30; Stop 03/03/18 at 17:29 ; Status DC Acetaminophen (Tylenol) 650 mg PRN Q4HRS PRN PO FEVER; Start 03/02/18 at 17:30 ; Stop 03/03/18 at 15:52; Status DC Furosemide (Lasix) 60 mg 1X ONCE IVP Last administered on 03/02/18at 23:02; Start 03/02/18 at 17:30; Stop 03/02/18 at 17:50; Status DC Acetaminophen (Tylenol) 325 mg PRN Q4HRS PRN PO MILD PAIN / TEMP Last administered on 03/04/18at 08:33; Start 03/02/18 at 17:30 Albuterol Sulfate (Ventolin Neb Soln) 2.5 mg TID NEB Last administered on at 07:10; Start 03/02/18 at 17:30 Amiodarone HCl (Cordarone) 200 mg BID PO Last administered on 03/07/18at 21:02; Start 03/02/18 at 21:00 Aspirin (Ecotrin) 81 mg DAILY08 PO Last administered on 03/08/18at 09:55; Start 03/02/18 at 18:30 Atorvastatin Calcium (Lipitor) 40 mg QHS PO Last administered on 03/07/18 21: 02; Start 03/02/18 at 21:00 Carvedilol (Coreg) 12.5 mg BIDWMEALS PO Last administered on 03/05/18at 17:20; Start 03/02/18 at 18:30; Stop 03/06/18 at 10:27; Status DC Clopidogrel Bisulfate (Plavix) 75 mg DAILY07 PO Last administered on 03/08/18 06:20; Start 03/02/18 at 18:30 Cyanocobalamin (Vitamin B-12) 1,000 mcg DAILY PO Last administered on at 09:55; Start 03/02/18 at 18:30 Diltiazem HCl (Cardizem 24hr Cd) 240 mg DAILYWLUN PO ; Start 03/03/18 at 12:00; Stop 03/06/18 at 10:27; Status DC Docusate Sodium (Colace) 100 mg DAILY PO Last administered on 03/07/18at 08:44; Start 03/02/18 at 18:30 Folic Acid (Folic Acid) 1 mg DAILY PO Last administered on 03/08/18 09:55; Start 03/02/18 at 18:30 Glipizide (Glucotrol Er) 2.5 mg DAILY PO Last administered on 03/04/18 08:32; Start 03/03/18 at 09:00; Stop 03/06/18 at 09:54; Status DC Potassium Chloride (Klor-Con) 10 meq DAILY PO Last administered on 03/04/18at 08 :33; Start 03/02/18 at 18:30; Stop 03/04/18 at 10:51; Status DC Tamsulosin HCl (Flomax) 0.4 mg DAILY PO Last administered on 03/08/18at 09:55; Start 03/02/18 at 18:30 Fluocinonide (Lidex) 1 ayad PRN BID PRN TP IRRITATED AREAS; Start 03/02/18 at 21 :00 Levothyroxine Sodium (Synthroid) 150 mcg DAILY07 PO Last administered on at 06:20; Start 03/02/18 at 18:30 Metformin HCl (Glucophage) 1,000 mg BIDWMEALS PO Last administered on at 08:32; Start 03/03/18 at 08:00; Stop 03/04/18 at 10:51; Status DC Insulin Human Lispro (HumaLOG) 0-9 UNITS TIDWMEALS SQ ; Start 03/03/18 at 08:00 Dextrose (Dextrose 50%-Water Syringe) 12.5 gm PRN Q15MIN PRN IV SEE COMMENTS; Start 03/02/18 at 17:30 Furosemide (Lasix) 40 mg DAILY IVP Last administered on 03/04/18at 08:34; Start 03/03/18 at 09:00; Stop 03/04/18 at 10:51; Status DC Ampicillin Sodium/ Sulbactam Sodium 3 gm/Sodium Chloride 100 ml @ 200 mls/hr Q6HRS IV Last administered on 03/08/18at 06:23; Start 03/03/18 at 12:00; Stop at 08:50; Status DC Sodium Chloride 500 ml @ 500 mls/hr 1X ONCE IV Last administered on at 13:54; Start 03/03/18 at 14:00; Stop 03/03/18 at 14:59; Status DC Sodium Chloride 500 ml @ 500 mls/hr 1X ONCE IV Last administered on at 18:15; Start 03/03/18 at 18:15; Stop 03/03/18 at 19:14; Status DC Linezolid (Zyvox) 600 mg BID PO Last administered on 03/07/18at 21:01; Start at 09:30; Stop 03/08/18 at 08:50; Status DC Lactobacillus Rhamnosus (Culturelle) 1 cap BID PO Last administered on at 09:55; Start 03/04/18 at 11:00 Sodium Chloride 1,000 ml @ 75 mls/hr [id number] IV Last administered on at 04:20; Start 03/04/18 at 11:00; Stop 03/06/18 at 10:27; Status DC Sodium Chloride 500 ml @ 500 mls/hr 1X ONCE IV Last administered on at 15:12; Start 03/04/18 at 15:00; Stop 03/04/18 at 15:59; Status DC Tramadol HCl (Ultram) 50 mg PRN Q8HRS PRN PO MODERATE PAIN Last administered on 03/08/18at 11:55; Start 03/05/18 at 19:15 Acetaminophen/ Hydrocodone Bitart (Lortab 5/325) 1 tab PRN Q4HRS PRN PO SEVERE PAIN; Start 03/05/18 at 19:15 Carvedilol (Coreg) 3.125 mg BIDWMEALS PO Last administered on 03/07/18at 17:24; Start 03/06/18 at 17:00 Spironolactone (Aldactone) 25 mg DAILY PO Last administered on 03/07/18at 08:44 ; Start 03/06/18 at 11:00 Furosemide (Lasix) 40 mg 1X ONCE IVP Last administered on 03/06/18at 12:01; Start 03/06/18 at 11:00; Stop 03/06/18 at 11:01; Status DC Albumin Human 100 ml @ 100 mls/hr 1X ONCE IV Last administered on 03/07/18at 15:36; Start 03/07/18 at 15:00; Stop 03/07/18 at 15:59; Status DC Albumin Human 100 ml @ 100 mls/hr Q8H IV Last administered on 03/08/18at 11:54 ; Start 03/08/18 at 11:00; Stop 03/09/18 at 03:59 Active Scripts Active Carvedilol 12.5 Mg Tablet 12.5 Mg PO BIDWMEALS Diltiazem 24HR Cd (Diltiazem Hcl) 240 Mg Cap.er.24h 240 Mg PO DAILYWLUN Amiodarone Hcl 200 Mg Tablet 200 Mg PO BID Vitamin B-12 (Cyanocobalamin (Vitamin B-12)) 1,000 Mcg Tablet 1,000 Mcg PO DAILY Reported Levothyroxine Sodium 150 Mcg Tablet 1 Tab PO DAILY Glipizide 5 Mg Tablet 2.5 Mg PO DAILY Tylenol (Acetaminophen) 325 Mg Tablet 1 Tab PO PRN Q4HRS Flomax (Tamsulosin Hcl) 0.4 Mg Cap.er.24h 1 Cap PO DAILY Potassium Chloride 10 Meq Capsule.er 10 Meq PO DAILY Lasix (Furosemide) 40 Mg Tablet 1 Tab PO DAILY Folic Acid 1 Mg Tablet 1 Tab PO DAILY Colace (Docusate Sodium) 100 Mg Capsule 1 Cap PO DAILY Clopidogrel (Clopidogrel Bisulfate) 75 Mg Tablet 1 Tab PO DAILY Betamethasone Dipropionate 15 Gm Cream..g. 1 Ayad TP BID Atorvastatin Calcium 40 Mg Tablet 1 Tab PO DAILY Aspir 81 (Aspirin) 81 Mg Tablet.dr 1 Tab PO DAILY [place]vesco (Ciclesonide) 6.1 Gm Hfa.aer.ad 6.1 Gm IH Ventolin Hfa Inhaler (Albuterol Sulfate) 18 Gm Hfa.aer.ad 18 Gm IH Albuterol Sulfate Neb Soln (Albuterol Sulfate) 2.5 Mg/3 Ml Vial.neb 2.5 Mg IH TID PRN Metformin Hcl 1,000 Mg Tablet 1,000 Mg PO BID Vitals/I & O Vital Sign - Last 24 Hours 03/07/18 03/07/18 03/07/18 03/07/18 15:00 15:40 16:58 17:24 Temp 97.6 97.6 Pulse 98 98 Resp 22 B/P (MAP) 114/80 (91) 114/80 Pulse Ox 92 O2 Delivery Room Air Room Air Room Air 03/07/18 03/07/18 03/07/18 03/07/18 19:00 19:41 21:02 21:15 Temp 96.1 96.1 Pulse 83 83 Resp 18 B/P (MAP) 104/74 (84) 104/74 Pulse Ox 91 O2 Delivery Room Air Room Air Room Air 03/07/18 03/08/18 03/08/18 03/08/18 23:00 03:00 07:00 07:10 Temp 97.1 97.0 96.3 97.1 97.0 96.3 Pulse 93 93 90 Resp 18 18 14 B/P (MAP) 102/70 (81) 107/65 (79) 101/49 (66) Pulse Ox 93 93 94 96 O2 Delivery Room Air Room Air Room Air Room Air 03/08/18 03/08/18 03/08/18 03/08/18 07:15 08:00 09:00 11:00 Temp 96.4 96.4 Pulse 90 90 95 Resp 14 B/P (MAP) 101/49 101/49 110/69 (83) Pulse Ox 94 O2 Delivery Room Air Room Air 03/08/18 11:55 O2 Delivery Room Air Intake and Output 03/07/18 03/07/18 03/08/18 15:00 23:00 07:00 Intake Total 100 ml Output Total 250 ml 250 ml Balance -250 ml -150 ml NELSON SHAY MD Mar 08, 2018 13:34
[2018-03-08 14:46] VITALS: BP 109/56
[2018-03-08 19:25] VITALS: BP 101/67
[2018-03-08] MEDS: ATORVASTATIN CALCIUM 40 MG TABLET. PO SCH (20:22)
[2018-03-08 22:50] VITALS: BP 116/67
[2018-03-09 02:48] VITALS: BP 108/72
[2018-03-09] MEDS: ALBUMIN HUMAN 25% 100 ML IV SCH (04:42)
[2018-03-09] MEDS: LEVOTHYROXINE 150 MCG TABLET PO SCH (06:04)
[2018-03-09] MEDS: CLOPIDOGREL BISULFATE 75 MG TABLET PO SCH (06:04)
[2018-03-09] MEDS ORDERED: FUROSEMIDE 40 MG/4 ML VIAL. IVP ONE (06:30)
[2018-03-09] MEDS: ALBUTEROL SULFATE 2.5 MG/3 ML NEBU. NEB SCH ×2 (06:54→11:25)
[2018-03-09 07:00] VITALS: BP 95/67
[2018-03-09] MEDS: CARVEDILOL 3.125 MG TABLET. PO SCH (08:00)
[2018-03-09] MEDS: INSULIN LISPRO 300 UNITS/3 ML INSULN.PEN. SQ SCH ×2 (08:00→11:45)
[2018-03-09] MEDS: AMIODARONE HCL 200 MG TABLET. PO SCH (08:39)
[2018-03-09] MEDS: SPIRONOLACTONE 25 MG TABLET PO SCH (08:39)
--- NOTE | 2018-03-09 08:49 | PDOC ---
Infectious Disease Note Subjective Subjective says about the same ROS ROS no n/v/d/fever/pain Vital Sign Vital Signs Vital Signs Date Time Temp Pulse Resp B/P (MAP) Pulse Ox O2 Delivery O2 Flow Rate FiO2 03/09/18 08:39 98 95/67 03/09/18 07:20 Room Air 03/09/18 02:48 96.9 20 90 96.9 Physical Exam PHYSICAL EXAM GENERAL: Propped up in bed, alert, calm, restraints LUNGS: Clear. HEART: S1, S2 regular. ABDOMEN: Obese, soft, NT : Scrotal swelling may be slightly better. There is no erythema or wound. Flores in place EXTREMITIES: BLE bandaged redness gone NEUROLOGIC: Alert and oriented SKIN: warm, no rash PIV Labs Lab Laboratory Tests Test 03/08/18 11:49 03/08/18 16:49 03/08/18 20:11 03/09/18 07:50 Glucose (Fingerstick) 107 mg/dL (70-99) 123 mg/dL (70-99) 117 mg/dL (70-99) 75 mg/dL (70-99) Micro Microbiology 03/03/18 Urine Culture - Final, Complete 03/03/18 Urine Culture Result 1 (ABHIJIT) - Final, Complete Objective Assessment Scrotal edema , Lower ext chronic stasis dermatitis , secondary acute cellulitis appears less likely BPH CHF Pacemaker HTN Renal insufficiency Plan Plan of Care off antibiotics leg elevation scrotal support and elevation D/w RN will s/o, call if questions ZARI HAGER MD Mar 09, 2018 08:49
[2018-03-09] MEDS: CYANOCOBALAMIN (VITAMIN B-12) 1,000 MCG TABLET. PO SCH (08:53)
[2018-03-09] MEDS: TAMSULOSIN 0.4 MG CAP.ER.24H. PO SCH (08:53)
[2018-03-09] MEDS: FOLIC ACID 1 MG TABLET. PO SCH (08:53)
[2018-03-09] MEDS: LACTOBACILLUS RHAMNOSUS GG 1 CAPSULE. PO SCH (08:53)
[2018-03-09] MEDS: ASPIRIN ENTERIC COATED 81 MG TABLET.DR. PO SCH (08:53)
[2018-03-09] MEDS: DOCUSATE SODIUM 100 MG CAPSULE. PO SCH (09:00)
[2018-03-09 11:00] VITALS: BP 100/69
[2018-03-09] MEDS ORDERED: FURO80TA72 PO (11:43)
[2018-03-09] MEDS ORDERED: LEVOTHYROXINE 75 MCG TABLET PO ONE (11:45)
--- NOTE | 2018-03-09 11:51 | PDOC3 ---
Discharge Summary Visit Information Date of Admission: Mar 02, 2018 Date of Discharge: Mar 09, 2018 Admitting Diagnosis: urinary obstruction, Final Diagnosis acute renal failure from obstruction, then Urinary retention, status post successful placement of Flores catheter by urology , 03/02/18 Ascites with marked scrotal edema due to CHF, acute on chronic diastolic History BPH on Flomax Bilateral lower extremity edema, some oozing HTN, afib , indwelling pacer - all chronic stable Lower ext chronic stasis dermatitis CHF Pacemaker Renal insufficiency MRSA colonization Amiodarone therapy Brief Hospital Course Allergies Allergies Coded Allergies Type Severity Reaction Last Updated Verified I S O L A T I O N *CONTACT* Allergy Unknown 03/04/18 Yes No Known Medication Allergies Allergy Unknown 03/04/18 Yes Vital Signs Vital Signs Date Time Temp Pulse Resp B/P (MAP) Pulse Ox O2 Delivery O2 Flow Rate FiO2 03/09/18 11:25 Room Air 03/09/18 11:00 96.8 91 18 100/69 (79) 92 96.8 Lab Results Laboratory Tests Test 03/07/18 16:22 03/07/18 20:53 03/08/18 05:00 03/08/18 07:24 Glucose (Fingerstick) 105 mg/dL (70-99) 138 mg/dL (70-99) 68 mg/dL (70-99) White Blood Count 7.9 x10^3/uL (4.0-11.0) Red Blood Count 4.21 x10^6/uL (4.30-5.70) Hemoglobin 12.2 g/dL (13.0-17.5) Hematocrit 38.4 % (39.0-53.0) Mean Corpuscular Volume 91 fL (79-100) Mean Corpuscular Hemoglobin 29 pg (25-35) Mean Corpuscular Hemoglobin Concent 32 g/dL (31-37) Red Cell Distribution Width 21.1 % (11.5-14.5) Platelet Count 223 x10^3/uL (140-400) Neutrophils (%) (Auto) 84 % (31-73) Lymphocytes (%) (Auto) 5 % (24-48) Monocytes (%) (Auto) 11 % (0-9) Eosinophils (%) (Auto) 0 % (0-3) Basophils (%) (Auto) 1 % (0-3) Neutrophils # (Auto) 6.7 x10^3uL (1.8-7.7) Lymphocytes # (Auto) 0.4 x10^3/uL (1.0-4.8) Monocytes # (Auto) 0.9 x10^3/uL (0.0-1.1) Eosinophils # (Auto) 0.0 x10^3/uL (0.0-0.7) Basophils # (Auto) 0.0 x10^3/uL (0.0-0.2) Sodium Level 139 mmol/L (136-145) Potassium Level 4.5 mmol/L (3.5-5.1) Chloride Level 104 mmol/L (98-107) Carbon Dioxide Level 21 mmol/L (21-32) Anion Gap 14 (6-14) Blood Urea Nitrogen 53 mg/dL (8-26) Creatinine 2.6 mg/dL (0.7-1.3) Estimated GFR (Cockcroft-Gault) 23.6 BUN/Creatinine Ratio 20 (6-20) Glucose Level 76 mg/dL (70-99) Calcium Level 8.8 mg/dL (8.5-10.1) Total Bilirubin 1.3 mg/dL (0.2-1.0) Aspartate Amino Transf (AST/SGOT) 40 U/L (15-37) Alanine Aminotransferase (ALT/SGPT) 23 U/L (16-63) Alkaline Phosphatase 127 U/L (46-116) Total Protein 7.2 g/dL (6.4-8.2) Albumin 2.7 g/dL (3.4-5.0) Albumin/Globulin Ratio 0.6 (1.0-1.7) Test 03/08/18 08:09 03/08/18 11:49 03/08/18 16:49 03/08/18 20:11 Glucose (Fingerstick) 76 mg/dL (70-99) 107 mg/dL (70-99) 123 mg/dL (70-99) 117 mg/dL (70-99) Test 03/09/18 07:50 03/09/18 11:03 Glucose (Fingerstick) 75 mg/dL (70-99) 83 mg/dL (70-99) Laboratory Tests Test 03/08/18 16:49 03/08/18 20:11 03/09/18 07:50 03/09/18 11:03 Glucose (Fingerstick) 123 mg/dL (70-99) 117 mg/dL (70-99) 75 mg/dL (70-99) 83 mg/dL (70-99) Brief Hospital Course Mr. Maxwell is a 82 old admit with scrotal swelling , CHF, dyspnea, inability to urinate edema not inrmpveod with increased lasix or repeated albumin infusions [facility]. applying ice and elevate scrotum cont spironolactone Flores catheter appears to have adequate drainage Discharge Information Condition at Discharge: Improved Follow Up: Weeks Disposition/Orders: D/C to Home Scheduled Acetaminophen (Tylenol) 325 Mg Tablet, 1 TAB PO PRN Q4HRS, #30 (Reported) Entered as Reported by: COLETTE MENESES on 05/22/161607 Last Action: Continued on 03/02/181721 by RK BRIDGES Albuterol Sulfate (Albuterol Sulfate Neb Soln) 2.5 Mg/3 Ml Vial.neb, 2.5 MG IH TID PRN, (Reported) Entered as Reported by: ED KELLEY on 07/14/13 193 Last Action: Continued on 03/02/181721 by RK BRIDGES Amiodarone Hcl (Amiodarone Hcl) 200 Mg Tablet, 200 MG PO BID, #60 Ref 3 Prescribed by: YEN MCINTOSH on 05/27/16 1133 Last Action: Continued on 03/02/181721 by RK BRIDGES Aspirin (Aspir 81) 81 Mg Tablet., 1 TAB PO DAILY, #30 Ref 5 (Reported) Entered as Reported by: COLETTE MENESES on 05/22/161607 Last Action: Continued on 03/02/181721 by RK BRIDGES Atorvastatin Calcium (Atorvastatin Calcium) 40 Mg Tablet, 1 TAB PO DAILY, #30 Ref 5 (Reported) Entered as Reported by: COLETTE MENESES on 05/22/161607 Last Action: Continued on 03/02/181721 by RK BRIDGES Betamethasone Dipropionate (Betamethasone Dipropionate) 15 Gm Cream..g., 1 CARMEN TP BID, #15 Ref 3 (Reported) Entered as Reported by: COLETTE MENESES on 05/22/16 1608 Last Action: Converted on 03/02/181721 by RK BRIDGES Carvedilol (Carvedilol) 12.5 Mg Tablet, 12.5 MG PO BIDWMEALS for rate control and HTN, #60 Ref 3 Prescribed by: YEN MCINTOSH on 05/27/16 1133 Last Action: Continued on 03/02/181721 by RK BRIDGES Clopidogrel Bisulfate (Clopidogrel) 75 Mg Tablet, 1 TAB PO DAILY, #90 Ref 1 ( Reported) Entered as Reported by: COLETTE MENESES on 05/22/16 160 Last Action: Continued on 03/02/181721 by RK BRIDGES Cyanocobalamin (Vitamin B-12) (Vitamin B-12) 1,000 Mcg Tablet, 1,000 MCG PO DAILY, #30 Prescribed by: FESTUS BRASHER MD on 05/14/16 1011 Last Action: Continued on 03/02/181721 by RK BRIDGES Diltiazem Hcl (Diltiazem 24HR Cd) 240 Mg Cap.er.24h, 240 MG PO DAILYWLUN for rate control, #30 Ref 3 Prescribed by: YEN MCINTOSH on 05/27/16 1133 Last Action: Continued on 03/02/181721 by RK BRIDGES Docusate Sodium (Colace) 100 Mg Capsule, 1 CAP PO DAILY, #30 (Reported) Entered as Reported by: COLETTE MENESES on 05/22/16 160 Last Action: Continued on 03/02/181721 by RK BRIDGES Folic Acid (Folic Acid) 1 Mg Tablet, 1 TAB PO DAILY, #90 Ref 1 (Reported) Entered as Reported by: COLETTE MENESES on 05/22/16 160 Last Action: Continued on 03/02/181721 by RK BRIDGES Furosemide (Lasix) 40 Mg Tablet, 1 TAB PO DAILY, #90 Ref 1 (Reported) Entered as Reported by: COLETTE MENESES on 05/22/16 160 Last Action: HELD on 03/02/181721 by RK BRIDGES Furosemide (Lasix) 80 Mg Tablet, 1 TAB PO DAILY, #30 Ref 5 Prescribed by: NELSON SHAY on 03/09/18 1143 Glipizide (Glipizide) 5 Mg Tablet, 2.5 MG PO DAILY, (Reported) Entered as Reported by: COLETTE MENESES on 05/22/161607 Last Action: Continued on 03/02/181721 by RK BRIDGES Levothyroxine Sodium (Levothyroxine Sodium) 150 Mcg Tablet, 1 TAB PO DAILY, #30 Ref 5 (Reported) Entered as Reported by: COLETTE MENESES on 05/22/161607 Last Action: Converted on 03/02/181721 by RK BRIDGES Metformin Hcl (Metformin Hcl) 1,000 Mg Tablet, 1,000 MG PO BID, (Reported) Entered as Reported by: ED KELLEY on 07/14/131926 Last Action: Converted on 03/02/181721 by RK BRIDGES Potassium Chloride (Potassium Chloride) 10 Meq Capsule.er, 10 MEQ PO DAILY, ( Reported) Entered as Reported by: COLETTE MENESES on 05/22/161607 Last Action: Continued on 03/02/181721 by RK BRIDGES Tamsulosin Hcl (Flomax) 0.4 Mg Cap.er.24h, 1 CAP PO DAILY, #30 Ref 11 (Reported) Entered as Reported by: COLETTE MENESES on 05/22/161607 Last Action: Continued on 03/02/181721 by RK BRIDGES Miscellaneous Medications Albuterol Sulfate (Ventolin Hfa Inhaler) 18 Gm Hfa.aer.ad, 18 GM IH, (Reported) Entered as Reported by: ED KELLEY on 07/14/131938 Last Action: HELD on 03/02/181721 by RK BRIDGES Ciclesonide (Alvesco) 6.1 Gm Hfa.aer.ad, 6.1 GM IH, (Reported) Entered as Reported by: ELSI FRANCO on 08/11/13 8062 Patient Instructions Patient Instructions > 30 min to senior living NELSON SHAY MD Mar 09, 2018 11:51
--- NOTE | 2018-03-09 13:47 | PDOC ---
SUBJECTIVE ROS C/O Pain Rt leg OBJECTIVE Vital Signs Vital Signs Date Time Temp Pulse Resp B/P (MAP) Pulse Ox O2 Delivery O2 Flow Rate FiO2 03/09/18 11:25 Room Air 03/09/18 11:00 96.8 91 18 100/69 (79) 92 96.8 I & 0 Intake and Output 03/09/18 07:00 Intake Total 700 ml Output Total 425 ml Balance 275 ml Intake Oral 500 ml IV Total 200 ml Output Urine Total 425 ml # Bowel Movements 3 PHYSICAL EXAM Physical Exam GENERAL: NAD HEENT On O2 by NC LUNGS: Clear. HEART: S1, S2 regular. ABDOMEN: Obese, soft, NT : Scrotal swelling+, Flores in place EXTREMITIES: BLE 3+ LE edema NEUROLOGIC: Alert and oriented SKIN: no rash DIAGNOSIS/ASSESSMENT Assessment & Plan JUAN DANIEL - Creat worsening as per labs from yesterday ? CKD , Cardiorenal, MALIK Lytes stable HTN - BP well controlled On meds DM II LE CELLULITIS/STASIS DISCOLORATION Edema URINARY RETENTION- status post successful placement of Flores catheter by urology, 03/02/18 CHF/ Afib- stable Likely DC today COMMENT/RELEVANT DATA Meds Current Medications Medications (Trade) Dose Ordered Sig/Jose Start Time Stop Time Status Last Admin Dose Admin Acetaminophen (Tylenol) 325 mg PRN Q4HRS PRN 03/02/18 17:30 03/04/18 08:33 325 MG Acetaminophen/ Hydrocodone Bitart (Lortab 5/325) 1 tab PRN Q4HRS PRN 03/05/18 19:15 Albumin Human 100 ml @ 100 mls/hr Q8H 03/08/18 11:00 03/09/18 03:59 DC 03/09/18 04:42 100 MLS/HR Albuterol Sulfate (Ventolin Neb Soln) 2.5 mg TID 03/02/18 17:30 03/09/18 11:25 2.5 MG Amiodarone HCl (Cordarone) 200 mg BID 03/02/18 21:00 03/08/18 20:23 200 MG Ampicillin Sodium/ Sulbactam Sodium 3 gm/Sodium Chloride 100 ml @ 200 mls/hr Q6HRS 03/03/18 12:00 03/08/18 08:50 DC 03/08/18 06:23 200 MLS/HR Aspirin (Ecotrin) 81 mg DAILY08 03/02/18 18:30 03/09/18 08:53 81 MG Atorvastatin Calcium (Lipitor) 40 mg QHS 03/02/18 21:00 03/08/18 20:22 40 MG Carvedilol (Coreg) 3.125 mg BIDWMEALS 03/06/18 17:00 03/08/18 17:14 3.125 MG Clopidogrel Bisulfate (Plavix) 75 mg DAILY07 03/02/18 18:30 03/09/18 06:04 75 MG Cyanocobalamin (Vitamin B-12) 1,000 mcg DAILY 03/02/18 18:30 03/09/18 08:53 1,000 MCG Dextrose (Dextrose 50%-Water Syringe) 12.5 gm PRN Q15MIN PRN 03/02/18 17:30 Diltiazem HCl (Cardizem 24hr Cd) 240 mg DAILYWLUN 03/03/18 12:00 03/06/18 10:27 DC Docusate Sodium (Colace) 100 mg DAILY 03/02/18 18:30 03/07/18 08:44 100 MG Fluocinonide (Lidex) 1 tanvi PRN BID PRN 03/02/18 21:00 Folic Acid (Folic Acid) 1 mg DAILY 03/02/18 18:30 03/09/18 08:53 1 MG Furosemide (Lasix) 40 mg 1X ONCE 03/09/18 06:30 03/09/18 06:31 DC 03/09/18 06:38 40 MG Glipizide (Glucotrol Er) 2.5 mg DAILY 03/03/18 09:00 03/06/18 09:54 DC 03/04/18 08:32 2.5 MG Insulin Human Lispro (HumaLOG) 0-9 UNITS TIDWMEALS 03/03/18 08:00 Lactobacillus Rhamnosus (Culturelle) 1 cap BID 03/04/18 11:00 03/09/18 08:53 1 CAP Levothyroxine Sodium (Synthroid) 75 mcg 1X ONCE 03/09/18 11:45 03/09/18 11:51 DC 03/09/18 12:43 75 MCG Linezolid (Zyvox) 600 mg BID 03/04/18 09:30 03/08/18 08:50 DC 03/07/18 21:01 600 MG Metformin HCl (Glucophage) 1,000 mg BIDWMEALS 03/03/18 08:00 03/04/18 10:51 DC 03/04/18 08:32 1,000 MG Morphine Sulfate (Morphine Sulfate) 4 mg PRN Q2HR PRN 03/02/18 17:30 03/03/18 17:29 DC 03/03/18 13:04 4 MG Ondansetron HCl (Zofran) 4 mg PRN Q8HRS PRN 03/02/18 17:30 03/03/18 17:29 DC Potassium Chloride (Klor-Con) 10 meq DAILY 03/02/18 18:30 03/04/18 10:51 DC 03/04/18 08:33 10 MEQ Sodium Chloride 500 ml @ 500 mls/hr 1X ONCE 03/04/18 15:00 03/04/18 15:59 DC 03/04/18 15:12 500 MLS/HR Spironolactone (Aldactone) 25 mg DAILY 03/06/18 11:00 03/07/18 08:44 25 MG Tamsulosin HCl (Flomax) 0.4 mg DAILY 03/02/18 18:30 03/09/18 08:53 0.4 MG Tramadol HCl (Ultram) 50 mg PRN Q8HRS PRN 03/05/18 19:15 03/08/18 23:24 50 MG Lab Laboratory Tests Test 03/08/18 16:49 03/08/18 20:11 03/09/18 07:50 03/09/18 11:03 Glucose (Fingerstick) 123 mg/dL (70-99) 117 mg/dL (70-99) 75 mg/dL (70-99) 83 mg/dL (70-99) Results All relevant outside records, renal labs, imaging studies, telemetry/EKG's were reviewed. OBDULIA MARTINEZ MD Mar 09, 2018 13:47
[2018-03-10] MEDS ORDERED: LEVOTHYROXINE 100 MCG TABLET PO SCH (07:00)
== END 2018-03-09 15:30 | disposition home or self-care (01) | DRG 682 ==
LOC: EEVIPCON 15:29 → ER 15:29 → 4 NORTH 17:09
PROVIDERS: ADMIT Internal Medicine; ATTEND Internal Medicine
PROC: 0T9B70Z Drainage of Bladder with Drainage Device, Via Natural or Artificial Opening (ICD-10-PCS; principal; 2018-03-02)
DX: N17.9 Acute kidney failure, unspecified (principal); I50.33 Acute on chronic diastolic (congestive) heart failure; E43 Unspecified severe protein-calorie malnutrition; Z68.41 Body mass index [BMI] 40.0-44.9, adult; I13.0 Hypertensive heart and chronic kidney disease with heart failure and stage 1 through stage 4 chronic kidney disease, or unspecified chronic kidney disease; L03.119 Cellulitis of unspecified part of limb; N13.8 Other obstructive and reflux uropathy; R18.8 Other ascites; N18.4 Chronic kidney disease, stage 4 (severe); N40.1 Benign prostatic hyperplasia with lower urinary tract symptoms; I48.91 Unspecified atrial fibrillation; E78.5 Hyperlipidemia, unspecified; J44.9 Chronic obstructive pulmonary disease, unspecified; E11.22 Type 2 diabetes mellitus with diabetic chronic kidney disease; N50.89 Other specified disorders of the male genital organs; I87.2 Venous insufficiency (chronic) (peripheral); Z51.5 Encounter for palliative care; I25.10 Atherosclerotic heart disease of native coronary artery without angina pectoris; N43.3 Hydrocele, unspecified; Z91.041 Radiographic dye allergy status; I25.2 Old myocardial infarction; Z95.0 Presence of cardiac pacemaker; Z22.322 Carrier or suspected carrier of Methicillin resistant Staphylococcus aureus; Z82.49 Family history of ischemic heart disease and other diseases of the circulatory system
CPT/HCPCS: 36415; 51702; 76770; 76870; 80048; 80053; 81001; 82962; 83036; 83605; 84439; 84443; 84481; 85025; 85027; 85651; 87086; 87641; 93306; 93970; 94640; 94760; G0103; J0295; J1815; J1940; J2270; J7030; J7040; J7613; P9046; 99285-25